=== PATIENT | male | born 1950 | race Caucasian/White ===

== ENCOUNTER 2016-04-02 14:20 | Outpatient (CLI) | payer OTHER ==
[2016-04-02 14:29] VITALS: BP 154/64
[2016-04-02] MEDS ORDERED: PEGFILGRASTIM INJ 6 MG/0.6 ML DISP.SYRIN SUBCUT ONE (14:45)
== END 2016-05-03 12:47 | disposition home or self-care (01) ==
LOC: ASU 14:20
PROVIDERS: ATTEND Specialist
PROC: 3E013GC Introduction of Other Therapeutic Substance into Subcutaneous Tissue, Percutaneous Approach (ICD-10-PCS; principal; 2016-04-02)
DX: C34.12 Malignant neoplasm of upper lobe, left bronchus or lung (principal); D70.2 Other drug-induced agranulocytosis
CPT/HCPCS: 99211; 96372; J2505

== ENCOUNTER → 2016-04-24 | Outpatient (CLI) | payer OTHER | LOC: RAD 16:26 | PROVIDERS: ATTEND Specialist | DX: C34.12 Malignant neoplasm of upper lobe, left bronchus or lung (principal) | CPT/HCPCS: 78815; A9552 ==

== ENCOUNTER → 2016-05-30 | Outpatient (CLI) | payer OTHER | LOC: RAD 10:22 | PROVIDERS: ATTEND Specialist | DX: C34.12 Malignant neoplasm of upper lobe, left bronchus or lung (principal) | CPT/HCPCS: 70553; A9577 ==

== ENCOUNTER → 2016-07-27 | Outpatient (CLI) | payer OTHER | LOC: RAD 15:29 | PROVIDERS: ATTEND Family Medicine | DX: S29.9XXA Unspecified injury of thorax, initial encounter (principal); X58.XXXA Exposure to other specified factors, initial encounter ==

== ENCOUNTER → 2016-08-14 | Outpatient (CLI) | payer OTHER | LOC: RAD 18:41 | PROVIDERS: ATTEND Specialist | DX: C34.12 Malignant neoplasm of upper lobe, left bronchus or lung (principal) | CPT/HCPCS: 78815; A9552 ==

== ENCOUNTER → 2016-09-05 | Outpatient (CLI) | payer OTHER ==
--- NOTE | 2016-09-05 16:49 | RADIOLOGY REPORT (SQ) ---
EXAM DESCRIPTION: CHEST PA/LAT COMPLETED DATE/TIME: 09/05/2016 4:38 pm REASON FOR STUDY: COUGH COMPARISON: 10/30/2014 EXAM PARAMETERS: NUMBER OF VIEWS: two views TECHNIQUE: Digital Frontal and Lateral radiographic views of the chest acquired. RADIATION DOSE: NA LIMITATIONS: none FINDINGS: LUNGS AND PLEURA: There is slight haziness in the right lower lung field. On the lateral view a limited infiltrate in the middle lobe cannot be ruled out. Additionally, there is some ill-de fined opacity in the left base Insert the left heart border is indistinct. MEDIASTINUM AND HILAR STRUCTURES: No masses or contour abnormalities. HEART AND VASCULAR STRUCTURES: Heart normal size. No evidence for failure. BONES: No acute findings. HARDWARE: None in the chest. OTHER: No other significant finding. IMPRESSION: A limited right middle lobe or left lower lobe pneumonia cannot be ruled out. TECHNICAL DOCUMENTATION: JOB ID: [id number] [employer]- All Rights Reserved
== END ==
LOC: RAD 16:26
PROVIDERS: ATTEND Specialist
DX: R05 Cough (principal); R09.89 Other specified symptoms and signs involving the circulatory and respiratory systems; R06.02 Shortness of breath; C34.12 Malignant neoplasm of upper lobe, left bronchus or lung
CPT/HCPCS: 71020

== ENCOUNTER → 2016-09-14 | Outpatient (CLI) | payer OTHER ==
[2016-09-14 17:20] LABS: HEMATOCRIT 31.7 % (37.9-51.0); HEMOGLOBIN 10.4 g/dL (13.5-17.0); HGB HCT DIFFERENCE -0.5; MEAN CORPUSCULAR HEMOGLOBIN 32.6 pg (27.0-33.4); MEAN CORPUSCULAR HGB CONC 32.8 g/dL (32.0-36.0); MEAN CORPUSCULAR VOLUME 99 fl (80-97); RED BLOOD COUNT 3.18 10^6/uL (4.35-5.55); RED CELL DISTRIBUTION WIDTH 18.6 % (11.5-14.0); WHITE BLOOD COUNT 8.2 10^3/uL (4.0-10.5)
[2016-09-14 17:49] LABS: ALANINE AMINOTRANSFERASE 51 U/L (21-72); ALBUMIN 3.5 g/dL (3.5-5.0); ALKALINE PHOSPHATASE 73 U/L (38-126); ASPARTATE AMINO TRANSFERASE 20 U/L (17-59); BILIRUBIN,DIRECT 0.3 mg/dL (0.0-0.4); BILIRUBIN,TOTAL 0.4 mg/dL (0.2-1.3); MAGNESIUM 1.5 mg/dL (1.6-2.3); TOTAL PROTEIN 6.2 g/dL (6.3-8.2)
[2016-09-14 17:50] LABS: ANION GAP 14 (5-19); BLOOD UREA NITROGEN 32 mg/dL (7-20); CALCIUM 8.4 mg/dL (8.4-10.2); CARBON DIOXIDE 24 mmol/L (22-30); CHLORIDE 106 mmol/L (98-107); CREATININE RESULT 1.22 mg/dL (0.52-1.25); GLUCOSE 152 mg/dL (75-110); POTASSIUM 3.9 mmol/L (3.6-5.0); SODIUM 143.9 mmol/L (137-145)
== END ==
LOC: OD 15:59
PROVIDERS: ATTEND Internal Medicine Cardiovascular Disease
DX: R06.02 Shortness of breath (principal); R00.2 Palpitations; E78.00 Pure hypercholesterolemia, unspecified
CPT/HCPCS: 36415; 80048; 80076; 83735; 83880; 85027; 85045

== ENCOUNTER 2017-01-19 13:34 | Outpatient (CLI) | payer MEDICARE, OTHER ==
[2017-01-19] MEDS ORDERED: NORMAL SALINE 1000 ML 1,000 ML IV PRN (13:54)
[2017-01-19 14:58] VITALS: BP 116/50
== END 2017-01-19 15:37 | disposition home or self-care (01) ==
LOC: II 13:34 → 5TH 13:51 → II 15:37
PROVIDERS: ATTEND Internal Medicine Hematology & Oncology
PROC: 3E0337Z Introduction of Electrolytic and Water Balance Substance into Peripheral Vein, Percutaneous Approach (ICD-10-PCS; principal; 2017-01-19)
DX: E86.0 Dehydration (principal); C34.12 Malignant neoplasm of upper lobe, left bronchus or lung
CPT/HCPCS: 96360

== ENCOUNTER 2017-01-23 11:40 | Inpatient (IN) | payer MEDICARE, OTHER ==
[2017-01-23] MEDS ORDERED: NORMAL SALINE 1000 ML 1,000 ML IV ONE (11:56)
--- NOTE | 2017-01-23 11:59 | ER Document Report ---
ED Medical Screen (RME) - General Chief Complaint: Shortness Of Breath Stated Complaint: SHORTNESS OF BREATH Time Seen by Provider: 01/23/17 11:56 Notes: Patient reports a history of lung cancer with radiation and chemotherapy. States he just recently finished chemotherapy. States he woke up this morning with left-sided chest pain and trouble breathing. He states about 2 weeks ago he had some cough and congestion and was treated with inhalers and steroids but no antibiotics. He states this has progressively been getting worse. States he also feels very weak. TRAVEL OUTSIDE OF THE [place] IN LAST 30 DAYS: No - Related Data Allergies/Adverse Reactions: No Known Drug Allergies Allergy (Unknown, Verified 03/13/14 10:18) Past Medical History Renal/ Medical History: Denies: Hx Peritoneal Dialysis - Immunizations Hx Diphtheria, Pertussis, Tetanus Vaccination: No Physical Exam - Vital signs Vitals: Temp Pulse Resp BP Pulse Ox 97.4 F 95 22 H 107/73 94 01/23/17 11:46 01/23/17 11:46 01/23/17 11:46 01/23/17 11:46 01/23/17 11:46 Course - Vital Signs Vital signs: Temp Pulse Resp BP Pulse Ox 97.4 F 95 22 H 107/73 94 01/23/17 11:46 01/23/17 11:46 01/23/17 11:46 01/23/17 11:46 01/23/17 11:46
[2017-01-23 12:47] LABS: HEMOGLOBIN 13.2 g/dL (13.5-17.0); HGB HCT DIFFERENCE 1.6; MEAN CORPUSCULAR HEMOGLOBIN 32.8 pg (27.0-33.4); MEAN CORPUSCULAR HGB CONC 34.7 g/dL (32.0-36.0); MEAN CORPUSCULAR VOLUME 95 fl (80-97); RED BLOOD COUNT 4.02 10^6/uL (4.35-5.55); RED CELL DISTRIBUTION WIDTH 15.1 % (11.5-14.0); WHITE BLOOD COUNT 14.8 10^3/uL (4.0-10.5)
[2017-01-23 12:48] LABS: VENOUS BLOOD BASE EXCESS -5.8 mmol/L; VENOUS BLOOD HCO3 20.4 mmol/L (20-32); VENOUS BLOOD PCO2 42.8 mmHg (35-63); VENOUS BLOOD PH 7.3 (7.30-7.42)
[2017-01-23 12:54] LABS: PROTHROMBIN TIME 13.9 SEC (11.4-15.4)
--- NOTE | 2017-01-23 12:54 | ER Document Report ---
ED Respiratory Problem <CHUCK LEON - Last Filed: 01/23/17 15:02> - General Mode of Arrival: Ambulatory Information source: Patient TRAVEL OUTSIDE OF THE [place] IN LAST 30 DAYS: No <YAHAIRA MOONEY - Last Filed: 01/31/17 22:20> - General Chief Complaint: Shortness Of Breath Stated Complaint: SHORTNESS OF BREATH Time Seen by Provider: 01/23/17 11:56 Notes: Patient is a 66-year-old male who presents to the emergency department today with complaints of increasing shortness of breath. Patient has been short of breath for approximately the past week according to at bedside. Patient has a history significant for lung cancer status post left upper lobectomy. Patient's last opdivo chemotherapy treatment was 3 weeks ago tomorrow and that was his eighth and final treatment. Patient was treated with steroids and inhalers a few weeks ago but no antibiotics. Patient denies fevers. (YAHAIRA MOONEY) - Related Data Allergies/Adverse Reactions: No Known Drug Allergies Allergy (Unknown, Verified 01/23/17 12:54) Home Medications: Current Home Medications Albuterol Sulfate [Albuterol Sulfate 2.5mg/3 mL] 1 vial IH Q8HP PRN 01/23/17 [ History] Albuterol Sulfate [Proair HFA] 2 puff IH Q4 PRN 01/23/17 [History] Aspirin [Aspirin EC] 81 mg PO DAILY 01/23/17 [History] Atorvastatin Calcium [Lipitor 20 mg Tablet] 20 mg PO DAILY 01/23/17 [History] Cholecalciferol (Vitamin D3) [Vitamin D3 2000 unit Tablet] 2,000 unit PO DAILY 01/23/17 [History] Clopidogrel Bisulfate [Plavix 75 mg Tablet] 75 mg PO DAILY 01/23/17 [History] Ergocalciferol (Vitamin D2) [Vitamin D2] 50,000 unit PO PALENCIA@1000 01/23/17 [ History] Finasteride [Proscar 5 mg Tablet] 5 mg PO QHS 01/23/17 [History] Gabapentin [Neurontin 300 mg Capsule] 600 mg PO Q12 01/23/17 [History] Ipratropium/Albuterol Sulfate [Combivent Inhaler] 1 puff IH Q8 01/23/17 [History ] Loratadine [Claritin 10 mg Tablet] 10 mg PO DAILY 10/23/17 [History] Metoprolol Succinate [Toprol Xl 25 mg Tab.sr] 25 mg PO DAILY 01/23/17 [History] Nitroglycerin [Nitrostat 0.4 mg (1/150 Gr) Tabs 25/Bottle] 1 tab SL Q5MP PRN [History] Omeprazole 20 mg PO BID 01/23/17 [History] Tamsulosin HCl [Flomax] 0.4 mg PO DAILY 01/23/17 [History] Past Medical History - Social History Smoking Status: Former Smoker Frequency of alcohol use: None Drug Abuse: None Patient has suicidal ideation: No Patient has homicidal ideation: No - Past Medical History Cardiac Medical History: Reports: Hx Coronary Artery Disease, Hx Hypercholesterolemia, Hx Hypertension Renal/ Medical History: Reports: Hx Benign Prostatic Hyperplasia. 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 GI Medical History: Reports: Hx Gastroesophageal Reflux Disease Past Surgical History: Reports: Hx Cardiac Catheterization - with 2 stents placed 7-8 years ago, Other - left upper lobectomy - Immunizations Hx Diphtheria, Pertussis, Tetanus Vaccination: No <YAHAIRA MOONEY - Last Filed: 01/31/17 22:20> Review of Systems - Review of Systems Constitutional: denies: Fever EENT: No symptoms reported Cardiovascular: No symptoms reported Respiratory: See HPI, Short of breath Gastrointestinal: No symptoms reported Genitourinary: No symptoms reported Male Genitourinary: No symptoms reported Musculoskeletal: No symptoms reported Skin: No symptoms reported Hematologic/Lymphatic: No symptoms reported Neurological/Psychological: No symptoms reported -: Yes All other systems reviewed and negative <YAHAIRA MOONEY - Last Filed: 01/31/17 22:20> Physical Exam <CHUCK LEON - Last Filed: 01/23/17 15:02> <YAHAIRA MOONEY - Last Filed: 01/31/17 22:20> - Vital signs Vitals: Temp Pulse Resp BP Pulse Ox 97.4 F 95 22 H 107/73 94 01/23/17 11:46 01/23/17 11:46 01/23/17 11:46 01/23/17 11:46 01/23/17 11:46 - Notes Notes: Physical Exam: General: Alert, appears chronically ill. HEENT: Normocephalic. Atraumatic. PERRL. Extraocular movements intact. Oropharynx clear. Neck: Supple. Non-tender. Respiratory: Slightly tachypneic, 98% on room air. Coarse breath sounds bilaterally. Decreased breath sounds on the left particularly in the base. Cardiovascular: Tachycardic in the low 100s with regular rhythm. Abdominal: Normal Inspection. Non-tender. No distension. Normal Bowel Sounds. Back: Non-tender. No deformity or step off. Extremities: Moves all four extremities. Upper extremities: Normal inspection. Normal ROM. Lower extremities: Normal inspection. No edema. Normal ROM. Neurological: Normal cognition. AAOx4. Normal speech. Psychological: Normal affect. Normal Mood. Skin: Warm. Dry. Normal color. (YAHAIRA MOONEY) Course - Laboratory Result Diagrams: 01/23/17 12:20 01/23/17 12:20 - Diagnostic Test Radiology reviewed: Image reviewed, Reports reviewed - Chest x-rays show probable large postobstructive pneumonia in the left lower lung - EKG Interpretation by Sd EKG shows normal: Sinus rhythm, [place], Intervals, ST-T Waves. abnormal: QRS Complexes - Consider right ventricular hypertrophy Rate: Tachycardia - 107 When compared to previous EKG there are: No significant change - Consults Dr. Hunt Time consulted: 15:05 Consulted provider: will see as inpatient <CHUCK LEON - Last Filed: 01/23/17 15:02> - Laboratory Result Diagrams: 01/27/17 07:23 01/27/17 07:23 <YAHAIRA MOONEY - Last Filed: 01/31/17 22:20> - Vital Signs Vital signs: Temp Pulse Resp BP Pulse Ox 97.5 F 100 18 94/62 L 97 01/27/17 11:52 01/27/17 11:52 01/27/17 11:52 01/27/17 11:52 01/27/17 11:52 - Laboratory Laboratory results interpreted by me: 01/23/17 01/23/17 01/23/17 12:20 12:20 12:20 WBC 14.8 H RBC 4.02 L Hgb 13.2 L RDW 15.1 H Plt Count 135 L Seg Neuts % (Manual) 90 H Band Neutrophils % 9 H Lymphocytes % (Manual) 1 L Monocytes % (Manual) 0 L Abs Neuts (Manual) 14.7 H Abs Lymphs (Manual) 0.1 L Abs Monocytes (Manual) 0.0 L Carbonic Acid ABG pCO2 ABG pO2 ABG HCO3 ABG Total CO2 Sodium 132.9 L Potassium 5.3 H Chloride 96 L Carbon Dioxide 19 L BUN 42 H Creatinine 1.39 H Est GFR (Non-Af Amer) 51 L Glucose 326 H Lactic Acid 4.8 H Direct Bilirubin 0.5 H AST 15 L Creatine Kinase Total Protein 6.1 L Urine Protein Urine Glucose (UA) Urine Blood Ur Leukocyte Esterase 01/23/17 01/23/17 01/23/17 12:20 13:20 14:33 WBC RBC Hgb RDW Plt Count Seg Neuts % (Manual) Band Neutrophils % Lymphocytes % (Manual) Monocytes % (Manual) Abs Neuts (Manual) Abs Lymphs (Manual) Abs Monocytes (Manual) Carbonic Acid 0.92 L ABG pCO2 30.6 L ABG pO2 75.6 L ABG HCO3 19.1 L ABG Total CO2 20.1 L Sodium Potassium Chloride Carbon Dioxide BUN Creatinine Est GFR (Non-Af Amer) Glucose Lactic Acid Direct Bilirubin AST Creatine Kinase < 20 L Total Protein Urine Protein 30 H Urine Glucose (UA) >=500 H Urine Blood SMALL H Ur Leukocyte Esterase TRACE H Critical Care Note - Critical Care Note Total time excluding time spent on procedures (mins): 35 <CHUCK LEON - Last Filed: 01/23/17 15:02> Discharge - Discharge Admitting Provider: [facility] Unit Admitted: IMCU <CHUCK LEON - Last Filed: 01/23/17 15:02> <YAHAIRA MOONEY - Last Filed: 01/31/17 22:20> - Discharge Clinical Impression: Postobstructive pneumonia, 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 (CHUCK LEON) Scribe Documentation - Scribe Written by Scribe:: Zuri Fagan, 01/23/2017 1311 acting as scribe for :: Bryan <YAHAIRA MOONEY - Last Filed: 01/31/17 22:20>
--- NOTE | 2017-01-23 13:02 | RADIOLOGY REPORT (SQ) ---
EXAM DESCRIPTION: CHEST SINGLE VIEW COMPLETED DATE/TIME: 01/23/2017 12:48 pm REASON FOR STUDY: cp/lung ca COMPARISON: 09/05/2016 EXAM PARAMETERS: NUMBER OF VIEWS: One view. TECHNIQUE: Single frontal radiographic view of the chest acquired. RADIATION DOSE: NA LIMITATIONS: None. FINDINGS: LUNGS AND PLEURA: There is marked opacity in the left base. There is reduced volume in th e left lung with shift of mediastinal structures to the left. MEDIASTINUM AND HILAR STRUCTURES: No masses. Contour normal. HEART AND VASCULAR STRUCTURES: Heart size is indeterminate. BONES: No acute findings. HARDWARE: None in the chest. OTHER: No other significant finding. IMPRESSION: There is marked opacification in the left lung. Left lower lobe atelectasis is suggeste d by a loss of volume. A pleural effusion cannot be excluded. Consolidation cannot be excluded. TECHNICAL DOCUMENTATION: JOB ID: [id number]
[2017-01-23 13:08] LABS: BAND NEUTROPHILS % (MANUAL) 9 % (3-5); BASOPHILS % (MANUAL) 0 % (0-2); EOSINOPHILS % (MANUAL) 0 % (0-6); LYMPHOCYTES % (MANUAL) 1 % (13-45); TOTAL CELLS COUNTED 100
[2017-01-23 13:10] LABS: ALANINE AMINOTRANSFERASE 52 U/L (21-72); ALBUMIN 3.6 g/dL (3.5-5.0); ALKALINE PHOSPHATASE 101 U/L (38-126); ANION GAP 18 (5-19); ASPARTATE AMINO TRANSFERASE 15 U/L (17-59); BILIRUBIN,DIRECT 0.5 mg/dL (0.0-0.4); BILIRUBIN,TOTAL 0.8 mg/dL (0.2-1.3); BLOOD UREA NITROGEN 42 mg/dL (7-20); CALCIUM 9.1 mg/dL (8.4-10.2); CARBON DIOXIDE 19 mmol/L (22-30); CHLORIDE 96 mmol/L (98-107); CREATININE RESULT 1.39 mg/dL (0.52-1.25); GLUCOSE 326 mg/dL (75-110); POTASSIUM 5.3 mmol/L (3.6-5.0); SODIUM 132.9 mmol/L (137-145); TOTAL PROTEIN 6.1 g/dL (6.3-8.2)
[2017-01-23 13:12] LABS: ANISOCYTOSIS SLIGHT; OVALOCYTES SLIGHT; PLATELET CLUMPS PRESENT; POIKILOCYTOSIS SLIGHT; POLYCHROMASIA SLIGHT; TEAR DROP CELLS SLIGHT; TOXIC GRANULATION 1+; TOXIC VACUOLATION PRESENT
[2017-01-23 13:34] LABS: ARTERIAL BLOOD BASE EXCESS -4.4 mmol/L; ARTERIAL BLOOD O2 SATURATION 95.5 % (94-98)
[2017-01-23 13:37] LABS: ADD ON TESTING BLD IN LAB ACKNOWLEDGE
[2017-01-23 13:52] LABS: CREATINE KINASE < 20 U/L (55-170)
--- NOTE | 2017-01-23 14:29 | RADIOLOGY REPORT (SQ) ---
EXAM DESCRIPTION: CHEST SPECIAL VIEW; CHEST SINGLE VIEW COMPLETED DATE/TIME: 01/23/2017 2:14 pm REASON FOR STUDY: LT LAT DECUB, AIR/FLUID LEVELS; RT LAT DECUB. AIR/FLUID LEVELS; UPRIGHT LAT, AIR/F LUID LEVELS COMPARISON: PA and lateral chest 09/05/2016 AP chest 01/23/2017, 1239 hours NUMBER OF VIEWS: Three views TECHNIQUE: Right decubitus view, left decubitus view, lateral view of the chest LIMITATIONS: None. FINDINGS: There is left lower lobe collapse and consolidation above the hemidiaphragm worrisome for pneumonia. On the chest decubitus views, a trace left pleural effusion is present. Right lung well inflated with minimal posterior costophrenic sulcus atelectasis. The no right pleura l effusion. No right or left pneumothorax. Patient is post left upper lobectomy with surgical clips at the left hilum. Fullness at the left hil um worrisome for adenopathy. Cardiac silhouette size normal. Bones are osteoporotic without acute fracture. IMPRESSION: Trace left pleural effusion Left hilar enlargement with left lower lobe pneumonia, likely postobstructive. Consider chest CT for followup. TECHNICAL DOCUMENTATION: JOB ID: [id number] [employer]- All Rights Reserved
[2017-01-23 14:45] LABS: APPEARANCE,URINE CLEAR; BILIRUBIN,URINE NEGATIVE (NEGATIVE); GLUCOSE, URINE >=500 mg/dL (NEGATIVE); KETONES,URINE NEGATIVE (NEGATIVE); LEUKOCYTE ESTERASE,URINE TRACE (NEGATIVE); NITRITE,URINE NEGATIVE (NEGATIVE); PROTEIN,URINE 30 mg/dL (NEGATIVE); URINE SPECIFIC GRAVITY 1.017; UROBILINOGEN,URINE NEGATIVE mg/dL (<2.0)
[2017-01-23] MEDS ORDERED: CEFEPIME 1 GM/D5W RTU 1 GM/50 ML RTUPB IV ONE (15:04)
[2017-01-23] MEDS ORDERED: LEVOFLOXACIN 750 MG/D5W RTU 750 MG/150 ML RTUPB IV ONE (15:04)
[2017-01-23] MEDS ORDERED: ACETAMINOPHEN 325 MG TABLET PO PRN (15:41)
[2017-01-23] MEDS ORDERED: NORMAL SALINE 1000 ML 1,000 ML IV PRN ×2 (15:41→16:54)
[2017-01-23] MEDS ORDERED: ONDANSETRON HCL INJ/PF 4 MG/2 ML SDV IV PRN (15:41)
[2017-01-23] MEDS ORDERED: NITROGLYCERIN 0.4 MG/TAB 25 TAB/BOTTLE SL PRN (15:48)
[2017-01-23] MEDS ORDERED: DEXTROSE 50%-WATER 25 GM/50 ML DISP.SYRIN IV PRN ×4 (15:48→20:56)
[2017-01-23] MEDS ORDERED: DEXTROSE 40% GEL 15 GM TUBE PO PRN ×4 (15:48→20:56)
[2017-01-23] MEDS ORDERED: GLUCAGON,HUMAN RECOMB 1 MG INJ IM PRN ×2 (15:48→20:56)
--- NOTE | 2017-01-23 16:02 | PDOC H&P ---
History of Present Illness Admission Date/PCP: 01/23/17 15:29 TESSY CLEMENT MD Patient complains of: Shortness of the breath History of Present Illness: LUCIO ROJO is a 66 year old male This is a 66-year-old male with a history of the squamous cell carcinoma with the brain metastatic lesionWith the status post left lower lobe surgery status post radiation and chemotherapyAnd also CyberKnife therapy and radiation of the brain toWith the currently getting the immunotherapy twice a month to take [address] cycle at [facility] [address] EldridgeWith a history of the COPD and a history of the smoking in the past currently getting the steroid treatments. Drug reactions and also from the COPDCame to the emergency department with a complaint was shortness of the breath and wheezing and not feeling well In the emergency department patient's chest x-rays so some left-sided pneumonia with some pleural effusions and patient's white count was elevatedVery extensive discussed with the patient and his to agree and the admitting the hospitals and further workup and agreed to see the local pulmonary and also parts cataloger and oncologist Dr. Aldana which patient used to see's office Dr. Carlson before Dr. Carlson left Patient's recently lost 20 pounds since last 2 monthsAnd patient was giving the Megace by Dr. Eldridge at [facility] He says recently received the steroid treatments for 3 weeks due to the intermittent reactions and recently give her Medrol Dosepak Patient also scheduled for the PET scan and MRI of the brain tomorrow at [facility] Patient's blood sugar is also not well controlled due to the recent steroidAlso noncompliance with the diet Patient also see a Dr. keen for coronary artery disease and recently have all the test was done for all stable Discussed with the patient and the in emergency departments and will admit the patient's possible postobstructive pneumonia and for further evaluations Past Medical History Cardiac Medical History: Reports: Coronary Artery Disease, Hyperlipidema, Hypertension Pulmonary Medical History: Reports: Chronic Obstructive Pulmonary Disease (COPD) Endocrine Medical History: Reports: Diabetes Mellitus Type 2 Malignancy Medical History: Reports: Lung Cancer - With metastasis to brain GI Medical History: Reports: Gastroesophageal Reflux Disease Musculoskeltal Medical History: Reports: Arthritis Psychiatric Medical History: Reports: Depression Hematology: Reports: Anemia Past Surgical History Past Surgical History: Reports: Cardiac Catheterization - with 2 stents placed 7 -8 years ago, Other - left upper lobectomy Social History Smoking Status: Former Smoker Frequency of Alcohol Use: Rare Hx Recreational Drug Use: No Drugs: None Hx Prescription Drug Abuse: No Family History Family History: Reviewed & Not Pertinent Parental Family History Reviewed: Yes Children Family History Reviewed: Yes Sibling(s) Family History Reviewed.: Yes Medication/Allergy Home Medications: Albuterol Sulfate [Albuterol Sulfate 2.5mg/3 mL] 1 vial IH Q8HP PRN 01/23/17 Albuterol Sulfate [Proair HFA] 2 puff IH Q4 PRN 01/23/17 Aspirin [Aspirin EC] 81 mg PO DAILY 01/23/17 Atorvastatin Calcium [Lipitor 20 mg Tablet] 20 mg PO DAILY 01/23/17 Cholecalciferol (Vitamin D3) [Vitamin D3 2000 unit Tablet] 2,000 unit PO DAILY 01/23/17 Clopidogrel Bisulfate [Plavix 75 mg Tablet] 75 mg PO DAILY 01/23/17 Dexamethasone [Decadron 4 Mg Tablet] 4 mg PO DAILY 01/23/17 Ergocalciferol (Vitamin D2) [Vitamin D2] 50,000 unit PO PALENCIA@1000 01/23/17 Finasteride [Proscar 5 mg Tablet] 5 mg PO QHS 01/23/17 Gabapentin [Neurontin 300 mg Capsule] 600 mg PO Q12 01/23/17 Ipratropium/Albuterol Sulfate [Combivent Inhaler] 1 puff IH Q8 01/23/17 Loratadine [Claritin 10 mg Tablet] 10 mg PO DAILY 01/23/17 Metoprolol Succinate [Toprol Xl 25 mg Tab.sr] 25 mg PO DAILY 01/23/17 Nitroglycerin [Nitrostat 0.4 mg (1/150 Gr) Tabs 25/Bottle] 1 tab SL Q5MP PRN Omeprazole 20 mg PO BID 01/23/17 Tamsulosin HCl [Flomax] 0.4 mg PO DAILY 01/23/17 Allergies/Adverse Reactions: No Known Drug Allergies Allergy (Unknown, Verified 01/23/17 12:54) Review of Systems Constitutional: PRESENT: fatigue, weakness. ABSENT: chills, fever(s), headache( s), weight gain, weight loss Eyes: ABSENT: visual disturbances Ears: ABSENT: hearing changes Cardiovascular: PRESENT: dyspnea on exertion. ABSENT: chest pain, edema, orthropnea, palpitations Respiratory: PRESENT: cough, dyspnea. ABSENT: hemoptysis Gastrointestinal: ABSENT: abdominal pain, constipation, diarrhea, hematemesis, hematochezia, nausea, vomiting Genitourinary: ABSENT: dysuria, hematuria Musculoskeletal: ABSENT: joint swelling Integumentary: ABSENT: rash, wounds Neurological: ABSENT: abnormal gait, abnormal speech, confusion, dizziness, focal weakness, syncope Psychiatric: ABSENT: anxiety, depression, homidical ideation, suicidal ideation Endocrine: ABSENT: cold intolerance, heat intolerance, menstrual abnormalities, polydipsia, polyuria Hematologic/Lymphatic: ABSENT: easy bleeding, easy bruising, lymphadenopathy Physical Exam Vital Signs: Temp Pulse Resp BP Pulse Ox 97.4 F 95 16 118/82 98 01/23/17 11:46 01/23/17 11:46 01/23/17 15:01 01/23/17 15:00 01/23/17 15:01 General appearance: PRESENT: no acute distress, well-developed, well-nourished Head exam: PRESENT: atraumatic, normocephalic Eye exam: PRESENT: conjunctiva pink, EOMI, PERRLA. ABSENT: scleral icterus Ear exam: PRESENT: normal external ear exam Mouth exam: PRESENT: moist, tongue midline Neck exam: PRESENT: full ROM. ABSENT: carotid bruit, JVD, lymphadenopathy, thyromegaly Respiratory exam: PRESENT: decreased breath sounds, wheezes Cardiovascular exam: PRESENT: RRR. ABSENT: diastolic murmur, rubs, systolic murmur Pulses: PRESENT: normal dorsalis pedis pul, +2 pedal pulses bilateral Vascular exam: PRESENT: normal capillary refill GI/Abdominal exam: PRESENT: normal bowel sounds, soft. ABSENT: distended, guarding, mass, organolmegaly, rebound, tenderness Rectal exam: PRESENT: deferred Extremities exam: ABSENT: pedal edema Neurological exam: PRESENT: alert, awake, oriented to person, oriented to place , oriented to time, oriented to situation, CN II-XII grossly intact. ABSENT: motor sensory deficit Psychiatric exam: PRESENT: appropriate affect, normal mood. ABSENT: homicidal ideation, suicidal ideation Skin exam: PRESENT: dry, intact, warm. ABSENT: cyanosis, rash Results Impressions: Chest X-Ray 01/23/17 13:39 IMPRESSION: Trace left pleural effusion Left hilar enlargement with left lower lobe pneumonia, likely postobstructive. Consider chest CT for followup. 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 Eldridge but used to see a Dr. Carlson in the past and patient agreed to see the local oncologist again we consult the local oncologist Dr. Aldana for further evaluations (3) Type 2 diabetes mellitus Qualifiers: Diabetes mellitus complication status: with unspecified complications Is this a current diagnosis for this admission?: Yes Plan: Put the patient on a sliding scale and adjust the insulin (4) Hypertension Qualifiers: Hypertension type: essential hypertension Qualified Code(s): I10 - Essential (primary) hypertension Is this a current diagnosis for this admission?: Yes Plan: Continues current medication (5) Chronic obstructive pulmonary disease Qualifiers: COPD type: unspecified COPD Qualified Code(s): J44.9 - Chronic obstructive pulmonary disease, unspecified Is this a current diagnosis for this admission?: Yes Plan: Continues a nebulizer treatment (6) Hyperlipidemia Qualifiers: Hyperlipidemia type: unspecified Qualified Code(s): E78.5 - Hyperlipidemia , unspecified Is this a current diagnosis for this admission?: Yes (7) Weight loss Is this a current diagnosis for this admission?: Yes Plan: Most likely due to the related to the cancer (8) Leukocytosis Qualifiers: Leukocytosis type: bandemia Qualified Code(s): D72.825 - Bandemia Is this a current diagnosis for this admission?: Yes Plan: Possible from pneumonia versus the steroid (9) Coronary artery disease Qualifiers: Coronary Disease-Associated Artery/Lesion type: unspecified vessel or lesion type Is this a current diagnosis for this admission?: Yes Plan: Continues current medications will rule out any acute coronary syndromes - Time Time Spent: 50 to 70 Minutes Medications reviewed and adjusted accordingly: Yes Anticipated discharge: Home Within: Other - Inpatient Certification Medical Necessity: Need Close Monitoring Due to Risk of Patient Decompensation, Need For IV Fluids, Need for IV Antibiotics Post Hospital Care: D/C Head Butler Documentation - Plan Summary Plan Summary: Admit the patient in IMCU as above see other MD orders and very extensive discussed with the patient and the regarding the patient's current conditions patient is currently a full code
[2017-01-23 17:00] LABS: CREATINE KINASE MB 2.06 ng/mL (<4.55); TROPONIN I 0.028 ng/mL
[2017-01-23] MEDS ORDERED: IPRATROPIUM/ALBUTEROL 0.5-2.5 MG/3 ML AMPUL NEB ONE (17:00)
[2017-01-23] MEDS: LANSOPRAZOLE 15 MG TAB.RAP.DR PO SCH (17:30)
--- NOTE | 2017-01-23 18:15 | RADIOLOGY REPORT (SQ) ---
EXAM DESCRIPTION: MRI HEAD COMBO COMPLETED DATE/TIME: 01/23/2017 5:40 pm REASON FOR STUDY: lung cancer with brain met COMPARISON: May 2016 TECHNIQUE: Multiplanar imaging includes noncontrasted T1, T2, FLAIR, and Diffusion with ADC map seq uences. Contrast enhanced T1 images. Images stored on PACS. CONTRAST TYPE AND DOSE: 15 mL MultiHance RENAL FUNCTION: GFR 51 LIMITATIONS: None. FINDINGS: ANATOMY: No anomalies. Normal vascular flow voids. Pituitary fossa normal. CSF SPACES: Normal size and contour. No hemorrhage. CEREBRUM: A few high-signal intensity lesions scattered throughout the white matter on FLAIR imaging with distribution suggesting chronic microvascular ischemic change. Sulci and gyri normal in size and contour. No evidence of hemorrhage, mass or extraaxial fluid collection. There are multiple varying size rim enhancing mass lesions in both cerebral hemispheres consistent with metastatic disease. Th e largest is identified in the left frontoparietal region over the convexity measuring 2.8 x 2.0 cm i n diameters. The next largest is in the region of the basal ganglia on the left measuring 11 mm in g reatest diameter. No significant mass effect is seen. POSTERIOR FOSSA: There are multiple small rim enhancing masses consistent with metastatic disease in both cerebellar hemispheres with the largest measuring 8.3 mm in the left cerebellar hemisphere. No h emorrhage. No edema. No significant mass effect. Internal auditory canals, cerebello-pontine angles, mastoids normal. DIFFUSION: Negative for acute or subacute infarction. ORBITS: No masses. Globes normal. PARANASAL SINUSES: No fluid levels. Mucosa normal. OTHER: No other significant finding. IMPRESSION: Multiple varying size rim enhancing masses are identified in both the cerebral hemispher es as well as both cerebellar hemispheres consistent with metastatic disease. The largest of these i s identified in the left frontoparietal region over the convexity. MINIMAL MICROVASCULAR ISCHEMIC WIN NGE. Other findings as noted above. EVIDENCE OF ACUTE STROKE: NO. TECHNICAL DOCUMENTATION: JOB ID: [id number]- All Rights Reserved
[2017-01-23] MEDS: OXYCODONE HCL SR 10 MG TABLET PO PRN (18:33)
--- NOTE | 2017-01-23 19:12 | EKG REPORT ---
SEVERITY:- BORDERLINE ECG - SINUS TACHYCARDIA CONSIDER RIGHT VENTRICULAR HYPERTROPHY : Confirmed by: Avril Cody 23-Jan-2017 19:12:02
[2017-01-23] MEDS: IPRATROPIUM/ALBUTEROL 0.5-2.5 MG/3 ML AMPUL NEB SCH (20:11)
[2017-01-23] MEDS ORDERED: INSULIN GLARGINE,HUM.REC.ANLOG 300 UNIT/3 ML INSULN.PEN SUBCUT SCH (22:00)
[2017-01-23] MEDS ORDERED: DEXAMETHASONE 4 MG TABLET PO SCH (22:00)
[2017-01-23] MEDS ORDERED: INFLUENZA ADLT QUAD (36MOS+) 2017-18 VAC 0.5 ML SYR IM PRN (22:17)
[2017-01-23] MEDS: CEFEPIME 1 GM/D5W RTU 1 GM/50 ML RTUPB IV SCH (23:01)
[2017-01-23] MEDS: INSULIN LISPRO 100 UNIT/ML 3 ML VIAL SUBCUT PRN (23:02)
[2017-01-23] MEDS: GABAPENTIN 300 MG CAPSULE PO SCH (23:02)
[2017-01-23] MEDS: FINASTERIDE 5 MG TABLET PO SCH (23:03)
[2017-01-23] MEDS: METHYLPREDNISOLONE INJ 125 MG/2 ML SDV IV SCH (23:03)
[2017-01-23 23:19] LABS: CREATINE KINASE MB 2.13 ng/mL (<4.55); TROPONIN I 0.019 ng/mL
[2017-01-24] MEDS: IPRATROPIUM/ALBUTEROL 0.5-2.5 MG/3 ML AMPUL NEB SCH ×3 (00:31→08:47)
[2017-01-24] MEDS: OXYCODONE HCL SR 10 MG TABLET PO PRN ×5 (02:13→23:45)
[2017-01-24] MEDS ORDERED: DILTIAZEM HCL INJ 25 MG/5 ML VIAL ONE (02:24)
[2017-01-24] MEDS ORDERED: DILTIAZEM HCL/D5W 125 MG/125 ML RTUINJ IV ONE (02:24)
[2017-01-24] MEDS: DILTIAZEM HCL/D5W 125 MG/125 ML RTUINJ IV PRN ×2 (02:50→12:04)
[2017-01-24] MEDS ORDERED: DILTIAZEM HCL INJ 25 MG/5 ML VIAL IV ONE (03:00)
[2017-01-24 06:06] LABS: ANION GAP 13 (5-19); BLOOD UREA NITROGEN 33 mg/dL (7-20); CALCIUM 8.8 mg/dL (8.4-10.2); CARBON DIOXIDE 19 mmol/L (22-30); CHLORIDE 100 mmol/L (98-107); CREATININE RESULT 1.16 mg/dL (0.52-1.25); GLUCOSE 375 mg/dL (75-110); POTASSIUM 5.3 mmol/L (3.6-5.0); SODIUM 132.3 mmol/L (137-145)
[2017-01-24 06:10] LABS: HEMOGLOBIN 11.8 g/dL (13.5-17.0); HGB HCT DIFFERENCE 1.4; MEAN CORPUSCULAR HEMOGLOBIN 32.9 pg (27.0-33.4); MEAN CORPUSCULAR HGB CONC 34.8 g/dL (32.0-36.0); MEAN CORPUSCULAR VOLUME 95 fl (80-97); RED BLOOD COUNT 3.59 10^6/uL (4.35-5.55); RED CELL DISTRIBUTION WIDTH 15.2 % (11.5-14.0)
[2017-01-24] MEDS: LANSOPRAZOLE 15 MG TAB.RAP.DR PO SCH ×2 (06:23→17:36)
[2017-01-24] MEDS: METHYLPREDNISOLONE INJ 125 MG/2 ML SDV IV SCH (06:23)
[2017-01-24 06:25] LABS: CREATINE KINASE MB 1.88 ng/mL (<4.55); TROPONIN I 0.016 ng/mL
[2017-01-24 07:11] LABS: BASOPHILS % (MANUAL) 0 % (0-2); EOSINOPHILS % (MANUAL) 0 % (0-6); LYMPHOCYTES % (MANUAL) 2 % (13-45); TOTAL CELLS COUNTED 100
[2017-01-24 07:12] LABS: RBC MORPHOLOGY COMMENT NORMO-CYTIC/CHROMIC
[2017-01-24] MEDS: INSULIN LISPRO 100 UNIT/ML 3 ML VIAL SUBCUT PRN ×2 (07:52→12:04)
--- NOTE | 2017-01-24 08:04 | EKG REPORT ---
SEVERITY:- ABNORMAL ECG - ATRIAL FIBRILLATION, V-RATE 85-169 CONSIDER RIGHT VENTRICULAR HYPERTROPHY BORDERLINE T ABNORMALITIES, INFERIOR LEADS : Confirmed by: Avril Cody 24-Jan-2017 08:04:18
--- NOTE | 2017-01-24 08:46 | PDOC CONSULTATION ---
Consultation Consult Date: 01/24/17 Attending physician:: TESSY CLEMENT Consult reason:: Postobstructive pneumonia, stage IV lung cancer History of Present Illness Admission Date/PCP: 01/23/17 15:41 TESSY CLEMENT MD Patient complains of: Shortness of breath, chest pain, cough, weakness History of Present Illness: 66-year-old male with known history of stage IV lung cancer, initially had stage III disease diagnosed at the end of the last year, he was treated with concurrent chemoradiation, then in May he was noted with brain metastasis, he only had a single lesion at that time and had gamma knife radiation to that site. He was noted with progression in the lungs in August. At that time he was seen by my partner Dr. Carlson, she left our practice in September, at that time he decided to transition care to Dr. Eldridge in [place]. He was then started on immunotherapy, he has been on immunotherapy now for about 8 cycles or 16 weeks. The last PET/CT we have in our system indicates multiple areas of disease in the mediastinum, specifically in lymph node sites. He tells me about 6 weeks ago he had restaging imaging which indicated improvement in the brain and the lungs apparently, we will get those records from [place] however. Here, he has had brain MRI which indicated multiple brain metastases bilateral cerebral hemispheres as well as cerebellum. It does appear to be overt progression from at least the MRI done in May but probably even the MRI done in [place]. He is plan for CT of the chest abdomen pelvis today. Past Medical History Cardiac Medical History: Reports: Coronary Artery Disease, Hyperlipidema, Hypertension Pulmonary Medical History: Reports: Chronic Obstructive Pulmonary Disease (COPD) Endocrine Medical History: Reports: Diabetes Mellitus Type 2 Malignancy Medical History: Reports: Lung Cancer - With metastasis to brain GI Medical History: Reports: Gastroesophageal Reflux Disease Musculoskeltal Medical History: Reports: Arthritis Psychiatric Medical History: Reports: Depression Hematology: Reports: Anemia Past Surgical History Past Surgical History: Reports: Cardiac Catheterization - with 2 stents placed 7 -8 years ago, Other - left upper lobectomy Social History Smoking Status: Former Smoker Frequency of Alcohol Use: None Hx Recreational Drug Use: No Drugs: None Hx Prescription Drug Abuse: No - Advance Directive Resuscitation Status: Full Code Family History Family History: Reviewed & Not Pertinent Parental Family History Reviewed: Yes Children Family History Reviewed: Yes Sibling(s) Family History Reviewed.: Yes Medication/Allergy Home Medications: Albuterol Sulfate [Albuterol Sulfate 2.5mg/3 mL] 1 vial IH Q8HP PRN 01/23/17 Albuterol Sulfate [Proair HFA] 2 puff IH Q4 PRN 01/23/17 Aspirin [Aspirin EC] 81 mg PO DAILY 01/23/17 Atorvastatin Calcium [Lipitor 20 mg Tablet] 20 mg PO DAILY 01/23/17 Cholecalciferol (Vitamin D3) [Vitamin D3 2000 unit Tablet] 2,000 unit PO DAILY 01/23/17 Clopidogrel Bisulfate [Plavix 75 mg Tablet] 75 mg PO DAILY 01/23/17 Dexamethasone [Decadron 4 Mg Tablet] 4 mg PO DAILY 01/23/17 Ergocalciferol (Vitamin D2) [Vitamin D2] 50,000 unit PO PALENCIA@1000 01/23/17 Finasteride [Proscar 5 mg Tablet] 5 mg PO QHS 01/23/17 Gabapentin [Neurontin 300 mg Capsule] 600 mg PO Q12 01/23/17 Ipratropium/Albuterol Sulfate [Combivent Inhaler] 1 puff IH Q8 01/23/17 Loratadine [Claritin 10 mg Tablet] 10 mg PO DAILY 01/23/17 Metoprolol Succinate [Toprol Xl 25 mg Tab.sr] 25 mg PO DAILY 01/23/17 Nitroglycerin [Nitrostat 0.4 mg (1/150 Gr) Tabs 25/Bottle] 1 tab SL Q5MP PRN Omeprazole 20 mg PO BID 01/23/17 Tamsulosin HCl [Flomax] 0.4 mg PO DAILY 01/23/17 Allergies/Adverse Reactions: No Known Drug Allergies Allergy (Unknown, Verified 01/23/17 12:54) Review of Systems Constitutional: ABSENT: chills, fever(s), headache(s), weight gain, weight loss Eyes: ABSENT: visual disturbances Ears: ABSENT: hearing changes Cardiovascular: ABSENT: chest pain, dyspnea on exertion, edema, orthropnea, palpitations Respiratory: ABSENT: cough, hemoptysis Gastrointestinal: ABSENT: abdominal pain, constipation, diarrhea, hematemesis, hematochezia, nausea, vomiting Genitourinary: ABSENT: dysuria, hematuria Musculoskeletal: ABSENT: joint swelling Integumentary: ABSENT: rash, wounds Neurological: ABSENT: abnormal gait, abnormal speech, confusion, dizziness, focal weakness, syncope Psychiatric: ABSENT: anxiety, depression, homidical ideation, suicidal ideation Endocrine: ABSENT: cold intolerance, heat intolerance, polydipsia, polyuria Hematologic/Lymphatic: ABSENT: easy bleeding, easy bruising Physical Exam Vital Signs: Temp Pulse Resp BP Pulse Ox 98.4 F 83 19 116/67 99 01/24/17 04:00 01/24/17 07:00 01/24/17 04:03 01/24/17 06:00 01/24/17 04:03 Intake & Output 01/23/17 01/24/17 01/25/17 06:59 06:59 06:59 Intake Total 1280 Output Total 790 Balance 490 Weight 88.5 kg General appearance: PRESENT: no acute distress, well-developed, well-nourished Head exam: PRESENT: atraumatic, normocephalic Eye exam: PRESENT: conjunctiva pink, EOMI, PERRLA. ABSENT: scleral icterus Ear exam: PRESENT: normal external ear exam Mouth exam: PRESENT: moist, tongue midline Neck exam: ABSENT: carotid bruit, JVD, lymphadenopathy, thyromegaly Respiratory exam: PRESENT: clear to auscultation concetta. ABSENT: rales, rhonchi, wheezes Cardiovascular exam: PRESENT: RRR. ABSENT: diastolic murmur, rubs, systolic murmur Pulses: PRESENT: normal dorsalis pedis pul Vascular exam: PRESENT: normal capillary refill GI/Abdominal exam: PRESENT: normal bowel sounds, soft. ABSENT: distended, guarding, mass, organolmegaly, rebound, tenderness Rectal exam: PRESENT: deferred Extremities exam: PRESENT: full ROM. ABSENT: calf tenderness, clubbing, pedal edema Neurological exam: PRESENT: alert, awake, oriented to person, oriented to place , oriented to time, oriented to situation, CN II-XII grossly intact. ABSENT: motor sensory deficit Psychiatric exam: PRESENT: appropriate affect, normal mood. ABSENT: homicidal ideation, suicidal ideation Skin exam: PRESENT: dry, intact, warm. ABSENT: cyanosis, rash Results Laboratory Results: 01/24/17 04:55 01/24/17 04:55 01/23/17 01/24/17 01/24/17 16:16 04:55 04:55 WBC 10.0 RBC 3.59 L Hgb 11.8 L Hct 34.0 L MCV 95 MCH 32.9 MCHC 34.8 RDW 15.2 H Plt Count 109 L Seg Neutrophils % Not Reportable Lymphocytes % Not Reportable Monocytes % Not Reportable Eosinophils % Not Reportable Basophils % Not Reportable Absolute Neutrophils Not Reportable Absolute Lymphocytes Not Reportable Absolute Monocytes Not Reportable Absolute Eosinophils Not Reportable Absolute Basophils Not Reportable Sodium 132.3 L Potassium 5.3 H Chloride 100 Carbon Dioxide 19 L Anion Gap 13 BUN 33 H Creatinine 1.16 Est GFR ( Amer) > 60 Est GFR (Non-Af Amer) > 60 Glucose 375 H Lactic Acid 2.5 H Calcium 8.8 01/23/17 01/23/17 01/23/17 16:16 16:16 22:40 Creatine Kinase < 20 L < 20 L CK-MB (CK-2) 2.06 Troponin I 0.028 NT-Pro-B Natriuret Pep 01/23/17 01/24/17 01/24/17 22:40 04:55 04:55 Creatine Kinase < 20 L CK-MB (CK-2) 2.13 1.88 Troponin I 0.019 0.016 NT-Pro-B Natriuret Pep 01/24/17 04:55 Creatine Kinase CK-MB (CK-2) Troponin I NT-Pro-B Natriuret Pep 1200 H Impressions: Head MRI 01/23/17 00:00 IMPRESSION: Multiple varying size rim enhancing masses are identified in both the cerebral hemispheres as well as both cerebellar hemispheres consistent with metastatic disease. The largest of these is identified in the left frontoparietal region over the convexity. MINIMAL MICROVASCULAR ISCHEMIC CHANGE. Other findings as noted above. EVIDENCE OF ACUTE STROKE: NO. Chest X-Ray 01/23/17 13:39 IMPRESSION: Trace left pleural effusion Left hilar enlargement with left lower lobe pneumonia, likely postobstructive. Consider chest CT for followup. 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 We need to stage the lungs in the abdomen as well, he may have overt progression there as well. Ultimately, I believe immunotherapy would not be of benefit for him, he had enough of an immunotherapy trial to see if it would work. At this point going back chemotherapy would be the only option. I also discussed comfort care as well as hospice options, he is not willing to discuss that as of yet. We will talk further with him tomorrow morning once we have the CT imaging completed. - Time Time Spent: Greater than 70 Minutes Critical Time spent with patient: 35 or more minutes
[2017-01-24] MEDS ORDERED: (PENDING PHARMACY ID) (Cholecalciferol (Vitamin D3) [Vitamin D3 2000 Unit Tablet] 2,000 UN PO SCH (10:00)
[2017-01-24] MEDS ORDERED: METOPROLOL SUCCINATE 25 MG TAB.SR.24H PO SCH (10:00)
[2017-01-24] MEDS ORDERED: SODIUM POLYSTYRENE SULFONATE 15 GM/60 ML PO ONE (10:36)
--- NOTE | 2017-01-24 10:44 | PDOC PROGRESS REPORT ---
Subjective Progress Note for:: 01/24/17 Subjective:: Patient is currently doing same. Denied any chest pain denied any shortness of the breathOvernight patient's heart risk was 160 and this new onset of the A. fibPatient was started on a Cardizem drip Patient's otherwise MRI of the brain multiple lesion Patient still feeling very weak Physical Exam Vital Signs: Temp Pulse Resp BP Pulse Ox 98.4 F 78 18 116/67 99 01/24/17 04:00 01/24/17 08:49 01/24/17 08:49 01/24/17 06:00 01/24/17 08:49 Intake & Output 01/23/17 01/24/17 01/25/17 06:59 06:59 06:59 Intake Total 1280 Output Total 790 Balance 490 Weight 88.5 kg General appearance: PRESENT: no acute distress, well-developed, well-nourished Head exam: PRESENT: atraumatic, normocephalic Eye exam: PRESENT: conjunctiva pink, EOMI, PERRLA. ABSENT: scleral icterus Ear exam: PRESENT: normal external ear exam Mouth exam: PRESENT: moist, tongue midline Neck exam: PRESENT: full ROM. ABSENT: carotid bruit, JVD, lymphadenopathy, thyromegaly Respiratory exam: PRESENT: clear to auscultation concetta Cardiovascular exam: PRESENT: irregular rhythm, +S1, +S2. ABSENT: diastolic murmur, rubs, systolic murmur Pulses: PRESENT: normal dorsalis pedis pul, +2 pedal pulses bilateral Vascular exam: PRESENT: normal capillary refill GI/Abdominal exam: PRESENT: normal bowel sounds, soft. ABSENT: distended, guarding, mass, organolmegaly, rebound, tenderness Rectal exam: PRESENT: deferred Extremities exam: ABSENT: pedal edema Neurological exam: PRESENT: alert, awake, oriented to person, oriented to place , oriented to time, oriented to situation, CN II-XII grossly intact. ABSENT: motor sensory deficit Psychiatric exam: PRESENT: appropriate affect, normal mood. ABSENT: homicidal ideation, suicidal ideation Skin exam: PRESENT: dry, intact, warm. ABSENT: cyanosis, rash Results Laboratory Results: 01/24/17 04:55 01/24/17 04:55 01/23/17 01/24/17 01/24/17 16:16 04:55 04:55 WBC 10.0 RBC 3.59 L Hgb 11.8 L Hct 34.0 L MCV 95 MCH 32.9 MCHC 34.8 RDW 15.2 H Plt Count 109 L Seg Neutrophils % Not Reportable Lymphocytes % Not Reportable Monocytes % Not Reportable Eosinophils % Not Reportable Basophils % Not Reportable Absolute Neutrophils Not Reportable Absolute Lymphocytes Not Reportable Absolute Monocytes Not Reportable Absolute Eosinophils Not Reportable Absolute Basophils Not Reportable Sodium 132.3 L Potassium 5.3 H Chloride 100 Carbon Dioxide 19 L Anion Gap 13 BUN 33 H Creatinine 1.16 Est GFR ( Amer) > 60 Est GFR (Non-Af Amer) > 60 Glucose 375 H Lactic Acid 2.5 H Calcium 8.8 01/23/17 01/23/17 01/23/17 16:16 16:16 22:40 Creatine Kinase < 20 L < 20 L CK-MB (CK-2) 2.06 Troponin I 0.028 NT-Pro-B Natriuret Pep 01/23/17 01/24/17 01/24/17 22:40 04:55 04:55 Creatine Kinase < 20 L CK-MB (CK-2) 2.13 1.88 Troponin I 0.019 0.016 NT-Pro-B Natriuret Pep 01/24/17 04:55 Creatine Kinase CK-MB (CK-2) Troponin I NT-Pro-B Natriuret Pep 1200 H Impressions: Head MRI 01/23/17 00:00 IMPRESSION: Multiple varying size rim enhancing masses are identified in both the cerebral hemispheres as well as both cerebellar hemispheres consistent with metastatic disease. The largest of these is identified in the left frontoparietal region over the convexity. MINIMAL MICROVASCULAR ISCHEMIC CHANGE. Other findings as noted above. EVIDENCE OF ACUTE STROKE: NO. Chest X-Ray 01/23/17 13:39 IMPRESSION: Trace left pleural effusion Left hilar enlargement with left lower lobe pneumonia, likely postobstructive. Consider chest CT for followup. 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 Is this a current diagnosis for this admission?: Yes Plan: With the disease is more progress with the MRI so some multiple lesion will get the CT of the chest and abdomen and pelvis per the oncology request (3) Type 2 diabetes mellitus Qualifiers: Diabetes mellitus complication status: with unspecified complications Is this a current diagnosis for this admission?: Yes Plan: Adjust the insulin and reduce the steroid (4) Hypertension Qualifiers: Hypertension type: essential hypertension Qualified Code(s): I10 - Essential (primary) hypertension Is this a current diagnosis for this admission?: Yes Plan: Continues current medication (5) Chronic obstructive pulmonary disease Qualifiers: COPD type: unspecified COPD Qualified Code(s): J44.9 - Chronic obstructive pulmonary disease, unspecified Is this a current diagnosis for this admission?: Yes Plan: Will DC the DuoNeb and started on Xopenex due to the A. fib (6) Hyperlipidemia Qualifiers: Hyperlipidemia type: unspecified Qualified Code(s): E78.5 - Hyperlipidemia , unspecified Is this a current diagnosis for this admission?: Yes (7) Weight loss Is this a current diagnosis for this admission?: Yes Plan: Most likely due to the related to the cancer (8) Leukocytosis Qualifiers: Leukocytosis type: bandemia Qualified Code(s): D72.825 - Bandemia Is this a current diagnosis for this admission?: Yes (9) Coronary artery disease Qualifiers: Coronary Disease-Associated Artery/Lesion type: unspecified vessel or lesion type Is this a current diagnosis for this admission?: Yes (10) Atrial fibrillation Qualifiers: Atrial fibrillation type: unspecified Qualified Code(s): I48.91 - Unspecified atrial fibrillation Is this a current diagnosis for this admission?: Yes Plan: With new onset will check the magnesium continues to Jose barrera consult to Dr. 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
--- NOTE | 2017-01-24 10:51 | RADIOLOGY REPORT (SQ) ---
EXAM DESCRIPTION: CTA CHEST COMPLETED DATE/TIME: 01/24/2017 10:19 am REASON FOR STUDY: lung cancer /sob COMPARISON: 03/03/2015 TECHNIQUE: CT scan of the chest performed using helical scanning technique with dynamic intravenous contrast injection. Images reviewed with lung, soft tissue and bone windows. Reconstructed coronal and sagittal MPR images reviewed. Additional 3 dimensional post-processing performed to develop Maximal Intensity Projection images (VA P). All images stored on PACS. All CT scanners at this facility use dose modulation, iterative reconstruction, and/or weight based d osing when appropriate to reduce radiation dose to as low as reasonably achievable (ALARA). [facility]: Dose Right [facility]: CareDose [facility]: Dose Right [facility]: Teradose 4D [facility]: Conduit CONTRAST TYPE AND DOSE: contrast/concentration: Isovue 370.00 mg/ml; Total Contrast Delivered: 70.0 ml; Total Saline Delivered: 110.0 ml Contrast bolus optimized for the pulmonary arteries. Not diagnostic for the aorta. RENAL FUNCTION: Done without waiting for renal function tests at the request of the ordering physici an. RADIATION DOSE: Up-to-date CT equipment and radiation dose reduction techniques were employed. CTDIv ol: 9.3 - 21.0 mGy. DLP: 1865 mGy-cm. . LIMITATIONS: There is mild pulsation artifact. Evaluation of the left lower lobe pulmonary arteries is limited because of the pathology in the left base. FINDINGS: LUNGS AND PLEURA: Moderate centrilobular emphysematous changes are present. Partial pneum onectomy changes are seen on the left. There is some a moderate left pleural effusion. There is sig nificant opacification in the left lower lobe with air bronchograms within it. There is mild subsegm ental atelectasis in the right lower lobe. AORTA AND GREAT VESSELS: No aneurysm. Contrast bolus not optimized for the aorta. HEART: No pericardial effusion. PULMONARY ARTERIES: No emboli are present major pulmonary arteries. Evaluation is slightly limited a s discussed above. HILAR AND MEDIASTINAL STRUCTURES: There is increased soft tissue density in the left hilum. Several small nonspecific mediastinal nodes are present. HARDWARE: Surgical clips. UPPER ABDOMEN: See separate report of the CT of the abdomen. THYROID AND OTHER SOFT TISSUES: No masses. No adenopathy. BONES: No acute or significant finding. 3D MIPS: Confirm above findings. OTHER: No other significant finding. IMPRESSION: 1. There is significantly reduced volume in the left lung because of partial pneumonect mildred and pathology described below. 2. Left pleural effusion. 3. Left lower lobe pneumonia versus atelectasis. This could represent post obstructive pneumonia se condary to a left hilar mass. 4. No major pulmonary emboli are seen. Evaluation of smaller pulmonary arteries was limited. COMMENT: Quality ID # [id number]: Final reports with documentation of one or more dose reduction techniques (e.g., Automated exposure control, adjustment of the mA and/or kV according to patient size, use of iterative reconstruction technique) TECHNICAL DOCUMENTATION: JOB ID: [id number] [employer]- All Rights Reserved
--- NOTE | 2017-01-24 11:03 | RADIOLOGY REPORT (SQ) ---
EXAM DESCRIPTION: CT ABD/PELVIS WITH IV ONLY COMPLETED DATE/TIME: 01/24/2017 10:19 am REASON FOR STUDY: lung cancer with met/sepsis COMPARISON: CT chest same date PET-CT 02/14/2016, 04/24/2016, 08/14/2016 TECHNIQUE: CT scan of the abdomen and pelvis performed using helical scanning technique with dynamic intravenous contrast injection. No oral contrast. Images reviewed with lung, soft tissue, and bone windows. Reconstructed coronal and sagittal MPR images reviewed. Delayed images for evaluation of the urinary system also acquired. All images stored on PACS. All CT scanners at this facility use dose modulation, iterative reconstruction, and/or weight based d osing when appropriate to reduce radiation dose to as low as reasonably achievable (ALARA). [facility]: Dose Right [facility]: CareDose [facility]: Dose Right [facility]: Teradose 4D [facility]: [email or web address] CONTRAST TYPE AND DOSE: 70 mL Isovue 370- low osmolar. RENAL FUNCTION: Creatinine 1.2 RADIATION DOSE: Total dose reported on the CT angio chest report today. LIMITATIONS: None. FINDINGS: LOWER CHEST: Please see CT chest today LIVER: Normal size. No masses. No dilated ducts. SPLEEN: Normal size. No focal lesions. PANCREAS: No masses. No significant calcifications. No adjacent inflammation or peripancreatic fluid collections. Pancreatic duct not dilated. GALLBLADDER: No identified stones by CT criteria. No inflammatory changes to suggest cholecystitis. ADRENAL GLANDS: No significant masses or asymmetry. RIGHT KIDNEY AND URETER: No solid masses. Multiple less than 2 cm right renal cortical cysts No sign ificant calcifications. No hydronephrosis or hydroureter. LEFT KIDNEY AND URETER: No solid masses. No significant calcifications. No hydronephrosis or hydr oureter. AORTA AND VESSELS: No aneurysm. No dissection. Renal arteries, SMA, celiac without stenosis. RETROPERITONEUM: No retroperitoneal adenopathy, hemorrhage or masses. BOWEL AND PERITONEAL CAVITY: No masses or inflammatory changes. No free fluid or peritoneal masses. APPENDIX: Normal. PELVIS: No mass. No free fluid. Normal bladder. Prostate 7 x 7 cm in size ABDOMINAL WALL: No masses. No hernias. BONES: No significant or acute findings. OTHER: No other significant finding. IMPRESSION: No definite CT evidence of metastatic disease to the abdomen or pelvis. No CT findings to explain history of sepsis over the abdomen or pelvis. TECHNICAL DOCUMENTATION: JOB ID: [id number] Quality ID # [id number]: Final reports with documentation of one or more dose reduction techniques (e.g., Au tomated exposure control, adjustment of the mA and/or kV according to patient size, use of iterative reconstruction technique) 2010 [employer]- All Rights Reserved
[2017-01-24] MEDS: CHOLECALCIFEROL (D3) 1,000 UNIT TABLET PO SCH (11:31)
[2017-01-24] MEDS: ASPIRIN 81 MG TABLET, ENT COATED PO SCH (11:32)
[2017-01-24] MEDS: LORATADINE 10 MG TABLET PO SCH (11:33)
[2017-01-24] MEDS: CEFEPIME 1 GM/D5W RTU 1 GM/50 ML RTUPB IV SCH ×2 (11:33→21:16)
[2017-01-24] MEDS: TAMSULOSIN HCL 0.4 MG CAP.SR.24H PO SCH (11:34)
[2017-01-24] MEDS: GABAPENTIN 300 MG CAPSULE PO SCH ×2 (11:34→21:16)
[2017-01-24] MEDS: ATORVASTATIN CALCIUM 20 MG TABLET PO SCH (11:34)
--- NOTE | 2017-01-24 11:41 | PDOC CONSULTATION ---
Consultation Consult Date: 01/24/17 Attending physician:: TESSY CLEMENT Consult reason:: Dyspnea History of Present Illness Admission Date/PCP: 01/23/17 15:41 TESSY CLEMENT MD History of Present Illness: 66-year-old male with known history of stage IV lung cancer(He is currently on biologic therapy) as well as emphysema adversely affect his activities of daily living. He became acutely on chronically is more short of breath and presented to the emergency room he had a dry cough and denies any hemoptysis his PPD status is unknown per patient he admits that prior to this incident he was actually act dyspnea with activities of daily living. He is in no hemoptysis. He has no history of chronic lung disease as a child or adolescent. He admits to exposure to passive smoke as a child as well as an adult he is smoked one half packs a day for 34 years but has not smoked in the last 5 years. 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 He has no pets and denies any recent travel. He has occasional tightness in his chest (history of coronary artery disease with 2 stents but he denies SC) he sleeps on 2 pillows admits to occasional PND occasional nocturnal cough as well as some edema. 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 GI Medical History: Reports: Gastroesophageal Reflux Disease, Hiatal Hernia Musculoskeltal Medical History: Reports: Arthritis Psychiatric Medical History: Reports: Depression Hematology: Reports: Anemia Past Surgical History Past Surgical History: Reports: Cardiac Catheterization - with 2 stents placed 7 -8 years ago, Coronary Stent, Other - Coronary artery stents 2;left upper lobectomy Social History Information Source: Patient, [facility] Records Lives with: Family Smoking Status: Former Smoker Cigarettes Packs Per Day: 2 Number of Years Smokin Last Time Smoked: 5yrs Frequency of Alcohol Use: None Hx Recreational Drug Use: No Drugs: None Hx Prescription Drug Abuse: No Do you have pets?: No Have you had any respiratory illnesses as a child?: No Have you been exposed to any sick contacts recently?: No Have you had any recent respiratory illnesses?: Yes Have you travelled outside of [place] in the past 12 months?: No - Advance Directive Resuscitation Status: Full Code Family History Family History: Reviewed & Not Pertinent, CVA, DM, Hypertension, Malignancy Parental Family History Reviewed: Yes Children Family History Reviewed: Yes Sibling(s) Family History Reviewed.: Yes Medication/Allergy Home Medications: Albuterol Sulfate [Albuterol Sulfate 2.5mg/3 mL] 1 vial IH Q8HP PRN 01/23/17 Albuterol Sulfate [Proair HFA] 2 puff IH Q4 PRN 01/23/17 Aspirin [Aspirin EC] 81 mg PO DAILY 01/23/17 Atorvastatin Calcium [Lipitor 20 mg Tablet] 20 mg PO DAILY 01/23/17 Cholecalciferol (Vitamin D3) [Vitamin D3 2000 unit Tablet] 2,000 unit PO DAILY 01/23/17 Clopidogrel Bisulfate [Plavix 75 mg Tablet] 75 mg PO DAILY 01/23/17 Dexamethasone [Decadron 4 Mg Tablet] 4 mg PO DAILY 01/23/17 Ergocalciferol (Vitamin D2) [Vitamin D2] 50,000 unit PO PALENCIA@1000 01/23/17 Finasteride [Proscar 5 mg Tablet] 5 mg PO QHS 01/23/17 Gabapentin [Neurontin 300 mg Capsule] 600 mg PO Q12 01/23/17 Ipratropium/Albuterol Sulfate [Combivent Inhaler] 1 puff IH Q8 01/23/17 Loratadine [Claritin 10 mg Tablet] 10 mg PO DAILY 01/23/17 Metoprolol Succinate [Toprol Xl 25 mg Tab.sr] 25 mg PO DAILY 01/23/17 Nitroglycerin [Nitrostat 0.4 mg (1/150 Gr) Tabs 25/Bottle] 1 tab SL Q5MP PRN Omeprazole 20 mg PO BID 01/23/17 Tamsulosin HCl [Flomax] 0.4 mg PO DAILY 01/23/17 Allergies/Adverse Reactions: No Known Drug Allergies Allergy (Unknown, Verified 01/23/17 12:54) Physical Exam Vital Signs: Temp Pulse Resp BP Pulse Ox 98.4 F 78 18 134/74 H 98 01/24/17 04:00 01/24/17 08:49 01/24/17 08:49 01/24/17 09:31 01/24/17 09:31 Intake & Output 01/23/17 01/24/17 01/25/17 06:59 06:59 06:59 Intake Total 1280 Output Total 790 Balance 490 Weight 88.5 kg General appearance: PRESENT: no acute distress, cooperative, disheveled, thin, well-developed Head exam: PRESENT: atraumatic, normocephalic Eye exam: PRESENT: conjunctiva pale, EOMI Mouth exam: PRESENT: dry mucosa, neck supple, tongue midline Neck exam: ABSENT: carotid bruit, JVD, lymphadenopathy, thyromegaly Respiratory exam: PRESENT: decreased breath sounds, prolonged expiratory phas, rales, rhonchi, symmetrical, tachypnea, unlabored, wheezes. ABSENT: retraction , stridor Cardiovascular exam: PRESENT: RRR, +S1, +S2 Pulses: PRESENT: normal radial pulses GI/Abdominal exam: PRESENT: normal bowel sounds, soft. ABSENT: distended, guarding, mass, organolmegaly, rebound, tenderness Rectal exam: PRESENT: deferred Musculoskeletal exam: PRESENT: tenderness Neurological exam: PRESENT: alert, awake. ABSENT: altered Psychiatric exam: PRESENT: normal mood Skin exam: PRESENT: dry, warm Results Laboratory Results: 01/24/17 04:55 01/24/17 04:55 01/23/17 01/24/17 01/24/17 16:16 04:55 04:55 WBC 10.0 RBC 3.59 L Hgb 11.8 L Hct 34.0 L MCV 95 MCH 32.9 MCHC 34.8 RDW 15.2 H Plt Count 109 L Seg Neutrophils % Not Reportable Lymphocytes % Not Reportable Monocytes % Not Reportable Eosinophils % Not Reportable Basophils % Not Reportable Absolute Neutrophils Not Reportable Absolute Lymphocytes Not Reportable Absolute Monocytes Not Reportable Absolute Eosinophils Not Reportable Absolute Basophils Not Reportable Sodium 132.3 L Potassium 5.3 H Chloride 100 Carbon Dioxide 19 L Anion Gap 13 BUN 33 H Creatinine 1.16 Est GFR ( Amer) > 60 Est GFR (Non-Af Amer) > 60 Glucose 375 H Lactic Acid 2.5 H Calcium 8.8 Magnesium 01/24/17 04:55 WBC RBC Hgb Hct MCV MCH MCHC RDW Plt Count Seg Neutrophils % Lymphocytes % Monocytes % Eosinophils % Basophils % Absolute Neutrophils Absolute Lymphocytes Absolute Monocytes Absolute Eosinophils Absolute Basophils Sodium Potassium Chloride Carbon Dioxide Anion Gap BUN Creatinine Est GFR ( Amer) Est GFR (Non-Af Amer) Glucose Lactic Acid Calcium Magnesium 1.8 01/23/17 01/23/17 01/23/17 16:16 16:16 22:40 Creatine Kinase < 20 L < 20 L CK-MB (CK-2) 2.06 Troponin I 0.028 NT-Pro-B Natriuret Pep 01/23/17 01/24/17 01/24/17 22:40 04:55 04:55 Creatine Kinase < 20 L CK-MB (CK-2) 2.13 1.88 Troponin I 0.019 0.016 NT-Pro-B Natriuret Pep 01/24/17 04:55 Creatine Kinase CK-MB (CK-2) Troponin I NT-Pro-B Natriuret Pep 1200 H Impressions: Head MRI 01/23/17 00:00 IMPRESSION: Multiple varying size rim enhancing masses are identified in both the cerebral hemispheres as well as both cerebellar hemispheres consistent with metastatic disease. The largest of these is identified in the left frontoparietal region over the convexity. MINIMAL MICROVASCULAR ISCHEMIC CHANGE. Other findings as noted above. EVIDENCE OF ACUTE STROKE: NO. Chest X-Ray 01/23/17 13:39 IMPRESSION: Trace left pleural effusion Left hilar enlargement with left lower lobe pneumonia, likely postobstructive. Consider chest CT for followup. Abdomen/Pelvis CT 01/24/17 00:00 IMPRESSION: No definite CT evidence of metastatic disease to the abdomen or pelvis. No CT findings to explain history of sepsis over the abdomen or pelvis. Chest/Abdomen CTA 01/24/17 09:34 IMPRESSION: 1. There is significantly reduced volume in the left lung because of partial pneumonectomy and pathology described below. 2. Left pleural effusion. 3. Left lower lobe pneumonia versus atelectasis. This could represent post obstructive pneumonia secondary to a left hilar mass. 4. No major pulmonary emboli are seen. Evaluation of smaller pulmonary arteries was limited. Assessment & Plan - Diagnosis (1) Subacute pulmonary embolism Is this a current diagnosis for this admission?: Yes Plan: Underlying malignancy certainly increases probability CTA was not conclusive (2) Atrial fibrillation Qualifiers: Atrial fibrillation type: unspecified Qualified Code(s): I48.91 - Unspecified atrial fibrillation Is this a current diagnosis for this admission?: Yes (3) Coronary artery disease Qualifiers: Coronary Disease-Associated Artery/Lesion type: unspecified vessel or lesion type Is this a current diagnosis for this admission?: Yes Plan: Has not had any angina since stent placement (4) Postobstructive pneumonia Is this a current diagnosis for this admission?: Yes Plan: Verified by CT scan of the chest to of 2 blood cultures positive for gram- positive cocci (5) 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
[2017-01-24] MEDS: INSULIN LISPRO 100 UNIT/ML 3 ML VIAL SUBCUT SCH ×2 (12:03→17:36)
[2017-01-24] MEDS: LEVOFLOXACIN 500 MG/D5W RTU 500 MG/100 ML RTUPB IV SCH (12:19)
[2017-01-24] MEDS: LEVALBUTEROL HCL NEB 1.25 MG/3 ML AMPUL NEB SCH ×2 (13:47→19:51)
[2017-01-24] MEDS: CLOPIDOGREL BISULFATE 75 MG TABLET PO SCH (14:14)
[2017-01-24] MEDS: ENOXAPARIN SODIUM INJ 40 MG/0.4 ML DISP.SYRIN SUBCUT SCH (14:15)
[2017-01-24] MEDS ORDERED: METHYLPREDNISOLONE INJ 125 MG/2 ML SDV IV SCH (18:00)
[2017-01-24] MEDS ORDERED: METOPROLOL SUCCINATE 25 MG TAB.SR.24H PO ONE (20:30)
[2017-01-24] MEDS: FINASTERIDE 5 MG TABLET PO SCH (21:16)
[2017-01-24] MEDS: INSULIN GLARGINE,HUM.REC.ANLOG 300 UNIT/3 ML INSULN.PEN SUBCUT SCH (21:20)
[2017-01-25 00:21] LABS: FREE T3 3.11 pg/mL (2.77-5.27)
[2017-01-25 00:35] LABS: THYROID STIMULATING HORMONE 1.89 uIU/mL (0.47-4.68)
--- NOTE | 2017-01-25 03:22 | CONSULTATION REPORT E ---
Consultation Report NAME: LUCIO ROJO : 1950 AGE: 66Y DATE: 01/24/2017 304 B TO: LEESA JOHNS M.D. FROM: TESSY HUNT M.D. Requesting Physician CHIEF COMPLAINT: Atrial fibrillation with rapid ventricular response. HISTORY OF PRESENT ILLNESS: This 66-year-old very pleasant gentleman was admitted through the ER because of left lower lobe pneumonia with pneumonia symptoms. Chest x-ray showed that he had a previous left pneumonectomy but now has a left lower lobe pneumonia with effusion and there is no evidence of pulmonary embolism. After admission, he was put in the IMCU. His usual medications were continued except for Toprol-XL 25 mg once a day which was ordered to begin a day following admission on 01/24/2017 at 10:00 a.m. His heart rhythm was fine showing sinus rhythm with sinus tachycardia due to the acuity of the infection. The patient was comfortable, had no chest pains but only mild shortness of breath and his usual pneumonia symptoms. Then on 01/24/17 at approximately 2:00 a.m., he went into sudden onset atrial fibrillation with rapid ventricular response with VR as high as [address] Hunt then started him on IV Cardizem and the drip rate was titrated based on his ventricular response. Then at 10:00 a.m., his Toprol dose of 25 mg was restarted. Over the next few hours, his heart rhythm spontaneously converted back to sinus rhythm with only 1 recurrence of atrial fibrillation for a short time, and then he reconverted back to the sinus rhythm. Cardiology consultation was requested by Dr. Hunt because of patient's atrial fibrillation. It needs to be noted that patient has never had any history of atrial fibrillation in the past but is known to have frequent PACs on a recent Holter done on 08/16/16 which showed that he had increased PACs, particularly during sleep but he also had very short PATs. For this reason, he was started on Toprol XL 25 mg once a day which he took until 01/23/17. Recent labs showed his TSH to be 2.13 which is normal, and therefore he does not have hyperthyroidism. His echo on 08/30/16 showed mild AV sclerosis, no mitral stenosis, and mild mitral regurgitation, upper normal left atrial size, mild left ventricular hypertrophy, with a normal left ventricular ejection fraction and stage I left ventricular diastolic dysfunction with no regional wall motion abnormality and no left ventricular dilation and no pulmonary hypertension. His MPI stress test done on 08/10/16 showed no Lexiscan induced reversible ischemic defect but there was a medium sized area of severe fixed perfusion defect in the apical anterior wall with a small but severe fixed perfusion defect in the base of inferoseptal wall from prev. IN, with a post stress ejection fraction of 52%. It was known that his magnesium was on the low side, 1.5, due to his diabetes and concomitant omeprazole treatment. OTHER SIGNIFICANT MEDICAL PROBLEMS: Include: 1. Coronary artery disease. 2. Status post BMS to the proximal RCA, MICAH to the proximal LAD; both were done in [address] Cervantes. Since then he was on aspirin and Plavix, and was lost to followup for many years. He returned to my clinic for followup in August of 2016. 3. Hypercholesterolemia, on Lipitor 20 mg daily. His LDL was down to 36 as of July 2016. 4. Known hypomagnesemia, and he was given magnesium infusions and oral supplements by his oncologist. 5. Essential hypertension, treated since 2005, and has been on Toprol 25 mg daily. 6. Squamous cell lung carcinoma with brain metastases and is status post radiation and chemotherapy, CyberKnife therapy with radiation to the brain, currently getting immunotherapy twice a month by Dr. Eldridge at [facility]. This is against a background of COPD from previous smoking. His oncologist currently is Dr. Aldana. Patient has been receiving steroid treatment for occasional reactions from his cancer chemo and radiation therapy. CURRENT MEDICATIONS: Include: 1. Aspirin 81 mg daily. 2. Nitrostat p.r.n. 3. Toprol XL 25 mg daily. 4. Plavix 75 mg daily. 5. Lipitor 20 mg daily. 6. Omeprazole. 7. Gabapentin. 8. Ferrous sulfate. 9. Finasteride. 10. Tamsulosin. 11. Symbicort. 12. Vitamin D. 13. Insulin. 14. OxyContin. OTHER PAST MEDICAL HISTORY: Includes: 1. Anemia. 2. Arthritis. 3. Diabetes. 4. GERD. SURGICAL HISTORY: Includes: 1. Multiple stents in 2005. 2. Left upper lobe lobectomy for cancer of the lung. SOCIAL HISTORY: Patient no longer smokes but was a smoker greater than 10 years ago. He currently does not drink. He has minimal caffeine intake. ALLERGIES: None known. REVIEW OF SYSTEMS: CONSTITUTION: Show that he is fatigued and tired but is without any fever or chills. There was recent weight loss due to his cancer and his treatment. EAR, NOSE, THROAT: No symptoms. CARDIOVASCULAR: Patient has no angina but does have dyspnea with exertion, no peripheral edema, orthopnea, and has rare palpitations with a past history of short episodes of PAT but never had atrial fibrillation. RESPIRATORY: Consists of cough, dyspnea. No sputum. No hemoptysis. GI: No abdominal pain, constipation, or diarrhea, hematemesis or blood in the stool, and no nausea or vomiting. : No dysuria or hematuria. MUSCULOSKELETAL: Occasional joint swelling and muscle weakness. NEUROLOGICAL: No abnormal gait, abnormal speech, confusion, dizziness, or syncope. He does have muscle weakness. PSYCHIATRIC: Patient does not have anxiety, depression, or suicidal ideation. ENDOCRINE: He has polyuria, polydipsia. HEMATOLOGICAL: He has easy bruising. PHYSICAL EXAMINATION: VITAL SIGNS: Blood pressure was 125/71, heart rate was sinus rhythm at 92 beats per minute. His range in systolic pressure since admission has been 108-134. Respirations 16, and pulse oximetry is 100%. GENERAL APPEARANCE: Patient does not appear to be in any acute distress. He is tall and well developed although he has lost about 30 pounds recently. HEENT: Normocephalic skull. Pupils equal and reactive to light and accommodation. EAR, NOSE, THROAT: Normal. NECK: JVP was distended. No carotid or vertebral bruit. Thyroid was not enlarged. HEART: PMI not palpable. S4 was present. S1 normal, S2 normal. A grade II/ systolic ejection murmur was heard in the left sternal border. There is no bruit. His peripheral pulses were not palpable. LUNGS: Poor air entry and significantly diminished breath sounds in the left lower lobe posterior. No rhonchi, no crepitations. CHEST: No rib cage or sternal tenderness. There is a left lateral chest scar from left upper lobectomy. ABDOMEN: Moderate distention but no hepatosplenomegaly. Bowel sounds were normal. EXTREMITIES: No ankle edema. Peripheral pulses were faint. NEUROLOGIC: Memory to be intact. He recognized me readily. There was no neurological deficit. IMAGING STUDIES: His MRI of the brain shows multiple small metastases in the brain, especially in the cerebral and cerebellar hemispheres, and especially in the left frontal parietal area. His chest x-ray showed left lower lobe pneumonia with left lower lobe effusion. His EKG showed atrial fibrillation, 149, no acute change other than rhythm disturbance. His admission EKG showed sinus rhythm. LABORATORY DATA: Hemoglobin 11.8, white cell count 10,000, and platelets 109,000. BUN 33, creatinine 1.16. Sodium 132, potassium 5.3. Troponin I was 0.028 to 0.016 trending down. NT-BNP was normal at 1200. ASSESSMENT AND PLAN: 1. New onset atrial fibrillation. This was new onset at approximately 2:00 a.m. on 01/24/17, secondary to missing his Toprol 25 mg daily the day before. Initially, he had rapid ventricular response. This was brought under rate control with IV Cardizem. Upon resumption of the Toprol XL 25 mg at 10:00 a.m. the next morning, 01/24/17, within a few hours he reverted back to normal sinus rhythm without the need for direct current cardioversion. Since then he has remained in normal sinus rhythm. Tonight I decided to give him an extra dose of the missed Toprol XL 25 mg as a stat dose, and then within an hour we should be able to terminate the IV Cardizem drip and put it on standby. 2. Post obstructive pneumonia. Based on the CT scan of the chest. There was no pulmonary embolism. Patient was started on broad spectrum antibiotics, and Pulmonary has been consulted for possible bronchoscopy due to obstruction. 3. Coronary artery disease. Stable, status post stents from 2005, 11 years ago. No anginal symptoms. Recent stress test 08/10/16 showed only a severe fixed perfusion defect in the apical anterior wall and also in the base of inferoseptal wall. There was no reversible ischemia. 4. Hypertension. Under control. 5. Hypercholesterolemia. Under control. 6. Type [address] Hunt. PLAN: 1. Serum magnesium level with T4 TSH has been ordered. 2. Continue with Toprol XL 25 mg daily. 3. May give extra doses if he lapses back into atrial fibrillation. There is no current need for direct oral anticoagulant. 4. Aspirin and Plavix is to be continued for his coronary artery disease and stents. 5. If magnesium is low i.e. less than 2.0, would recommend oral magnesium supplement 400-800 mg daily depending on the deficiency. TIME SPENT: Sixty-five minutes. We will follow the patient as needed. DICTATING PHYSICIAN: LEESA JOHNS M.D. [id number] PHY#: [id number] ID: [id number] JOB#: [id number] ACCT: [id number] cc:LEESA JOHNS M.D. > [facility]
[2017-01-25 05:16] LABS: HEMATOCRIT 30.2 % (37.9-51.0); HEMOGLOBIN 10.5 g/dL (13.5-17.0); HGB HCT DIFFERENCE 1.3; MEAN CORPUSCULAR HEMOGLOBIN 33.1 pg (27.0-33.4); MEAN CORPUSCULAR HGB CONC 34.8 g/dL (32.0-36.0); MEAN CORPUSCULAR VOLUME 95 fl (80-97); RED BLOOD COUNT 3.18 10^6/uL (4.35-5.55); RED CELL DISTRIBUTION WIDTH 14.9 % (11.5-14.0); WHITE BLOOD COUNT 7.1 10^3/uL (4.0-10.5)
[2017-01-25 05:33] LABS: ANION GAP 12 (5-19); BLOOD UREA NITROGEN 38 mg/dL (7-20); CALCIUM 8.8 mg/dL (8.4-10.2); CARBON DIOXIDE 21 mmol/L (22-30); CHLORIDE 101 mmol/L (98-107); CREATININE RESULT 1.07 mg/dL (0.52-1.25); POTASSIUM 4.7 mmol/L (3.6-5.0); SODIUM 134.2 mmol/L (137-145)
[2017-01-25 05:45] LABS: ANISOCYTOSIS SLIGHT; BAND NEUTROPHILS % (MANUAL) 2 % (3-5); BASOPHILS % (MANUAL) 0 % (0-2); EOSINOPHILS % (MANUAL) 0 % (0-6); LYMPHOCYTES % (MANUAL) 2 % (13-45); TOTAL CELLS COUNTED 100; TOXIC GRANULATION 1+
[2017-01-25 05:46] LABS: GLUCOSE 412 mg/dL (75-110)
[2017-01-25] MEDS: LANSOPRAZOLE 15 MG TAB.RAP.DR PO SCH ×2 (06:24→17:34)
[2017-01-25] MEDS: OXYCODONE HCL SR 10 MG TABLET PO PRN ×4 (06:25→22:32)
[2017-01-25] MEDS: LEVALBUTEROL HCL NEB 1.25 MG/3 ML AMPUL NEB SCH ×3 (07:42→19:32)
[2017-01-25] MEDS: INSULIN LISPRO 100 UNIT/ML 3 ML VIAL SUBCUT PRN ×4 (08:06→22:31)
[2017-01-25] MEDS: INSULIN LISPRO 100 UNIT/ML 3 ML VIAL SUBCUT SCH ×3 (08:06→17:33)
--- NOTE | 2017-01-25 09:04 | PDOC PROGRESS REPORT ---
Subjective Progress Note for:: 01/25/17 Subjective:: Patient is currently doing fair. Patient seen by the database marketing analyst and adjust the beta-parish and patients currently off the Cardizem drip Patient's currently aspirin and Plavix and not a good candidate for anticoagulationsDue to the brain metastases and multiple other comorbidity and as per discussed with the oncology Patient also seen by Dr. Vermaeen This with the patient and the were extensively about the all the test reports Physical Exam Vital Signs: Temp Pulse Resp BP Pulse Ox 97.5 F 63 16 114/65 98 01/25/17 04:59 01/25/17 07:42 01/25/17 07:42 01/25/17 04:59 01/25/17 07:42 Intake & Output 01/24/17 01/25/17 01/26/17 06:59 06:59 06:59 Intake Total 1280 3175 Output Total 790 2900 Balance 490 275 Weight 88.5 kg 88.7 kg General appearance: PRESENT: no acute distress, well-developed, well-nourished Head exam: PRESENT: atraumatic, normocephalic Eye exam: PRESENT: conjunctiva pink, EOMI, PERRLA. ABSENT: scleral icterus Ear exam: PRESENT: normal external ear exam Mouth exam: PRESENT: moist, tongue midline Neck exam: PRESENT: full ROM. ABSENT: carotid bruit, JVD, lymphadenopathy, thyromegaly Respiratory exam: PRESENT: clear to auscultation concetta Cardiovascular exam: PRESENT: RRR. ABSENT: diastolic murmur, rubs, systolic murmur Pulses: PRESENT: normal dorsalis pedis pul, +2 pedal pulses bilateral Vascular exam: PRESENT: normal capillary refill GI/Abdominal exam: PRESENT: normal bowel sounds, soft. ABSENT: distended, guarding, mass, organolmegaly, rebound, tenderness Rectal exam: PRESENT: deferred Extremities exam: ABSENT: pedal edema Neurological exam: PRESENT: alert, awake, oriented to person, oriented to place , oriented to time, oriented to situation, CN II-XII grossly intact. ABSENT: motor sensory deficit Psychiatric exam: PRESENT: appropriate affect, normal mood. ABSENT: homicidal ideation, suicidal ideation Skin exam: PRESENT: dry, intact, warm. ABSENT: cyanosis, rash Results Laboratory Results: 01/25/17 03:52 01/25/17 03:52 01/24/17 01/24/17 01/25/17 04:55 04:55 03:52 WBC 7.1 RBC 3.18 L Hgb 10.5 L Hct 30.2 L MCV 95 MCH 33.1 MCHC 34.8 RDW 14.9 H Plt Count 101 L Seg Neutrophils % Not Reportable Lymphocytes % Not Reportable Monocytes % Not Reportable Eosinophils % Not Reportable Basophils % Not Reportable Absolute Neutrophils Not Reportable Absolute Lymphocytes Not Reportable Absolute Monocytes Not Reportable Absolute Eosinophils Not Reportable Absolute Basophils Not Reportable Sodium Potassium Chloride Carbon Dioxide Anion Gap BUN Creatinine Est GFR ( Amer) Est GFR (Non-Af Amer) Glucose Calcium Magnesium 1.8 TSH 1.89 Free T4 1.37 Free T3 pg/mL 3.11 01/25/17 03:52 WBC RBC Hgb Hct MCV MCH MCHC RDW Plt Count Seg Neutrophils % Lymphocytes % Monocytes % Eosinophils % Basophils % Absolute Neutrophils Absolute Lymphocytes Absolute Monocytes Absolute Eosinophils Absolute Basophils Sodium 134.2 L Potassium 4.7 Chloride 101 Carbon Dioxide 21 L Anion Gap 12 BUN 38 H Creatinine 1.07 Est GFR ( Amer) > 60 Est GFR (Non-Af Amer) > 60 Glucose 412 H* Calcium 8.8 Magnesium TSH Free T4 Free T3 pg/mL 01/23/17 01/23/17 01/23/17 16:16 16:16 22:40 Creatine Kinase < 20 L < 20 L CK-MB (CK-2) 2.06 Troponin I 0.028 NT-Pro-B Natriuret Pep 01/23/17 01/24/17 01/24/17 22:40 04:55 04:55 Creatine Kinase < 20 L CK-MB (CK-2) 2.13 1.88 Troponin I 0.019 0.016 NT-Pro-B Natriuret Pep 01/24/17 04:55 Creatine Kinase CK-MB (CK-2) Troponin I NT-Pro-B Natriuret Pep 1200 H Impressions: Head MRI 01/23/17 00:00 IMPRESSION: Multiple varying size rim enhancing masses are identified in both the cerebral hemispheres as well as both cerebellar hemispheres consistent with metastatic disease. The largest of these is identified in the left frontoparietal region over the convexity. MINIMAL MICROVASCULAR ISCHEMIC CHANGE. Other findings as noted above. EVIDENCE OF ACUTE STROKE: NO. Chest X-Ray 01/23/17 13:39 IMPRESSION: Trace left pleural effusion Left hilar enlargement with left lower lobe pneumonia, likely postobstructive. Consider chest CT for followup. Abdomen/Pelvis CT 01/24/17 00:00 IMPRESSION: No definite CT evidence of metastatic disease to the abdomen or pelvis. No CT findings to explain history of sepsis over the abdomen or pelvis. Chest/Abdomen CTA 01/24/17 09:34 IMPRESSION: 1. There is significantly reduced volume in the left lung because of partial pneumonectomy and pathology described below. 2. Left pleural effusion. 3. Left lower lobe pneumonia versus atelectasis. This could represent post obstructive pneumonia secondary to a left hilar mass. 4. No major pulmonary emboli are seen. Evaluation of smaller pulmonary arteries was limited. 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 Is this a current diagnosis for this admission?: Yes Plan: With the disease is more progress with the MRI so some multiple lesion will get the CT of the chest and abdomen and pelvis per the oncology request (3) Type 2 diabetes mellitus Qualifiers: Diabetes mellitus complication status: with unspecified complications Is this a current diagnosis for this admission?: Yes Plan: Adjust the insulin and reduce the steroid (4) Hypertension Qualifiers: Hypertension type: essential hypertension Qualified Code(s): I10 - Essential (primary) hypertension Is this a current diagnosis for this admission?: Yes Plan: Continues current medication (5) Chronic obstructive pulmonary disease Qualifiers: COPD type: unspecified COPD Qualified Code(s): J44.9 - Chronic obstructive pulmonary disease, unspecified Is this a current diagnosis for this admission?: Yes Plan: Will DC the DuoNeb and started on Xopenex due to the A. fib (6) Hyperlipidemia Qualifiers: Hyperlipidemia type: unspecified Qualified Code(s): E78.5 - Hyperlipidemia , unspecified Is this a current diagnosis for this admission?: Yes (7) Weight loss Is this a current diagnosis for this admission?: Yes Plan: Consult the dietitian's (8) Leukocytosis Qualifiers: Leukocytosis type: bandemia Qualified Code(s): D72.825 - Bandemia Is this a current diagnosis for this admission?: Yes Plan: Possible from pneumonia versus the steroid (9) Coronary artery disease Qualifiers: Coronary Disease-Associated Artery/Lesion type: unspecified vessel or lesion type Is this a current diagnosis for this admission?: Yes (10) Atrial fibrillation Qualifiers: Atrial fibrillation type: unspecified Qualified Code(s): I48.91 - Unspecified atrial fibrillation Is this a current diagnosis for this admission?: Yes Plan: Patient's currently continues to current medications follow with the cardiology - Time Time Spent with patient: 15-24 minutes Medications reviewed and adjusted accordingly: Yes Anticipated discharge: Home Within: Other - Inpatient Certification Medical Necessity: Need Close Monitoring Due to Risk of Patient Decompensation, Need for IV Antibiotics Post Hospital Care: D/C Performance Improvement Consultant Documentation - Plan Summary Plan Summary: see md rose
--- NOTE | 2017-01-25 09:18 | PDOC PROGRESS REPORT ---
Subjective Progress Note for:: 01/25/17 Subjective:: Today had a long discussion with patient, I went over all of the recent imaging as well as the new findings on imaging, today spent about 45 minutes in discussion, also discussed his case with Dr. Eldridge, his oncologist in [place]. Physical Exam Vital Signs: Temp Pulse Resp BP Pulse Ox 97.5 F 63 16 114/65 98 01/25/17 04:59 01/25/17 07:42 01/25/17 07:42 01/25/17 04:59 01/25/17 07:42 Intake & Output 01/24/17 01/25/17 01/26/17 06:59 06:59 06:59 Intake Total 1280 3175 Output Total 790 2900 Balance 490 275 Weight 88.5 kg 88.7 kg General appearance: PRESENT: no acute distress, well-developed, well-nourished Head exam: PRESENT: atraumatic, normocephalic Eye exam: PRESENT: conjunctiva pink, EOMI, PERRLA. ABSENT: scleral icterus Ear exam: PRESENT: normal external ear exam Mouth exam: PRESENT: moist, tongue midline Neck exam: ABSENT: carotid bruit, JVD, lymphadenopathy, thyromegaly Respiratory exam: PRESENT: clear to auscultation concetta. ABSENT: rales, rhonchi, wheezes Cardiovascular exam: PRESENT: RRR. ABSENT: diastolic murmur, rubs, systolic murmur Pulses: PRESENT: normal dorsalis pedis pul Vascular exam: PRESENT: normal capillary refill GI/Abdominal exam: PRESENT: normal bowel sounds, soft. ABSENT: distended, guarding, mass, organolmegaly, rebound, tenderness Rectal exam: PRESENT: deferred Extremities exam: PRESENT: full ROM. ABSENT: calf tenderness, clubbing, pedal edema Neurological exam: PRESENT: alert, awake, oriented to person, oriented to place , oriented to time, oriented to situation, CN II-XII grossly intact. ABSENT: motor sensory deficit Psychiatric exam: PRESENT: appropriate affect, normal mood. ABSENT: homicidal ideation, suicidal ideation Skin exam: PRESENT: dry, intact, warm. ABSENT: cyanosis, rash Results Laboratory Results: 01/25/17 03:52 01/25/17 03:52 01/24/17 01/24/17 01/25/17 04:55 04:55 03:52 WBC 7.1 RBC 3.18 L Hgb 10.5 L Hct 30.2 L MCV 95 MCH 33.1 MCHC 34.8 RDW 14.9 H Plt Count 101 L Seg Neutrophils % Not Reportable Lymphocytes % Not Reportable Monocytes % Not Reportable Eosinophils % Not Reportable Basophils % Not Reportable Absolute Neutrophils Not Reportable Absolute Lymphocytes Not Reportable Absolute Monocytes Not Reportable Absolute Eosinophils Not Reportable Absolute Basophils Not Reportable Sodium Potassium Chloride Carbon Dioxide Anion Gap BUN Creatinine Est GFR ( Amer) Est GFR (Non-Af Amer) Glucose Calcium Magnesium 1.8 TSH 1.89 Free T4 1.37 Free T3 pg/mL 3.11 01/25/17 03:52 WBC RBC Hgb Hct MCV MCH MCHC RDW Plt Count Seg Neutrophils % Lymphocytes % Monocytes % Eosinophils % Basophils % Absolute Neutrophils Absolute Lymphocytes Absolute Monocytes Absolute Eosinophils Absolute Basophils Sodium 134.2 L Potassium 4.7 Chloride 101 Carbon Dioxide 21 L Anion Gap 12 BUN 38 H Creatinine 1.07 Est GFR ( Amer) > 60 Est GFR (Non-Af Amer) > 60 Glucose 412 H* Calcium 8.8 Magnesium TSH Free T4 Free T3 pg/mL 01/23/17 01/23/17 01/23/17 16:16 16:16 22:40 Creatine Kinase < 20 L < 20 L CK-MB (CK-2) 2.06 Troponin I 0.028 NT-Pro-B Natriuret Pep 01/23/17 01/24/17 01/24/17 22:40 04:55 04:55 Creatine Kinase < 20 L CK-MB (CK-2) 2.13 1.88 Troponin I 0.019 0.016 NT-Pro-B Natriuret Pep 01/24/17 04:55 Creatine Kinase CK-MB (CK-2) Troponin I NT-Pro-B Natriuret Pep 1200 H Impressions: Head MRI 01/23/17 00:00 IMPRESSION: Multiple varying size rim enhancing masses are identified in both the cerebral hemispheres as well as both cerebellar hemispheres consistent with metastatic disease. The largest of these is identified in the left frontoparietal region over the convexity. MINIMAL MICROVASCULAR ISCHEMIC CHANGE. Other findings as noted above. EVIDENCE OF ACUTE STROKE: NO. Chest X-Ray 01/23/17 13:39 IMPRESSION: Trace left pleural effusion Left hilar enlargement with left lower lobe pneumonia, likely postobstructive. Consider chest CT for followup. Abdomen/Pelvis CT 01/24/17 00:00 IMPRESSION: No definite CT evidence of metastatic disease to the abdomen or pelvis. No CT findings to explain history of sepsis over the abdomen or pelvis. Chest/Abdomen CTA 01/24/17 09:34 IMPRESSION: 1. There is significantly reduced volume in the left lung because of partial pneumonectomy and pathology described below. 2. Left pleural effusion. 3. Left lower lobe pneumonia versus atelectasis. This could represent post obstructive pneumonia secondary to a left hilar mass. 4. No major pulmonary emboli are seen. Evaluation of smaller pulmonary arteries was limited. 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 We will see patient next week as well.
[2017-01-25] MEDS ORDERED: METHYLPREDNISOLONE INJ 40 MG/1 ML SDV IV SCH (10:00)
[2017-01-25] MEDS: LORATADINE 10 MG TABLET PO SCH (11:02)
[2017-01-25] MEDS: CHOLECALCIFEROL (D3) 1,000 UNIT TABLET PO SCH (11:03)
[2017-01-25] MEDS: ASPIRIN 81 MG TABLET, ENT COATED PO SCH (11:03)
[2017-01-25] MEDS: GABAPENTIN 300 MG CAPSULE PO SCH ×2 (11:03→22:32)
[2017-01-25] MEDS: CEFEPIME 1 GM/D5W RTU 1 GM/50 ML RTUPB IV SCH ×2 (11:04→22:23)
[2017-01-25] MEDS: METOPROLOL SUCCINATE 25 MG TAB.SR.24H PO SCH (11:05)
[2017-01-25] MEDS: TAMSULOSIN HCL 0.4 MG CAP.SR.24H PO SCH (11:05)
[2017-01-25] MEDS: ATORVASTATIN CALCIUM 20 MG TABLET PO SCH (11:05)
[2017-01-25] MEDS: CLOPIDOGREL BISULFATE 75 MG TABLET PO SCH (11:06)
[2017-01-25] MEDS: LEVOFLOXACIN 500 MG/D5W RTU 500 MG/100 ML RTUPB IV SCH (11:07)
[2017-01-25] MEDS: DEXAMETHASONE 4 MG TABLET PO SCH ×2 (11:10→17:34)
[2017-01-25] MEDS: ENOXAPARIN SODIUM INJ 40 MG/0.4 ML DISP.SYRIN SUBCUT SCH (11:13)
[2017-01-25] MEDS: INSULIN GLARGINE,HUM.REC.ANLOG 300 UNIT/3 ML INSULN.PEN SUBCUT SCH (22:25)
[2017-01-25] MEDS: FINASTERIDE 5 MG TABLET PO SCH (22:33)
[2017-01-26] MEDS: DEXAMETHASONE 4 MG TABLET PO SCH ×5 (01:10→23:56)
[2017-01-26] MEDS: OXYCODONE HCL SR 10 MG TABLET PO SCH ×6 (03:58→23:56)
[2017-01-26 06:46] LABS: HEMATOCRIT 31.1 % (37.9-51.0); HEMOGLOBIN 10.8 g/dL (13.5-17.0); HGB HCT DIFFERENCE 1.3; MEAN CORPUSCULAR HGB CONC 34.6 g/dL (32.0-36.0); MEAN CORPUSCULAR VOLUME 95 fl (80-97); RED BLOOD COUNT 3.26 10^6/uL (4.35-5.55); RED CELL DISTRIBUTION WIDTH 15.2 % (11.5-14.0); WHITE BLOOD COUNT 6.7 10^3/uL (4.0-10.5)
[2017-01-26 06:55] LABS: ANION GAP 11 (5-19); BLOOD UREA NITROGEN 42 mg/dL (7-20); CALCIUM 9.1 mg/dL (8.4-10.2); CARBON DIOXIDE 22 mmol/L (22-30); CHLORIDE 101 mmol/L (98-107); CREATININE RESULT 1.03 mg/dL (0.52-1.25); GLUCOSE 364 mg/dL (75-110); POTASSIUM 4.8 mmol/L (3.6-5.0); SODIUM 133.5 mmol/L (137-145)
[2017-01-26 07:15] LABS: ANISOCYTOSIS SLIGHT; BAND NEUTROPHILS % (MANUAL) 1 % (3-5); BASOPHILS % (MANUAL) 0 % (0-2); EOSINOPHILS % (MANUAL) 0 % (0-6); LYMPHOCYTES % (MANUAL) 2 % (13-45); NUCLEATED RED BLOOD CELLS 1 /100 WBC (0); TOTAL CELLS COUNTED 100; TOXIC GRANULATION SLIGHT
[2017-01-26] MEDS: LANSOPRAZOLE 15 MG TAB.RAP.DR PO SCH ×2 (07:32→16:47)
[2017-01-26] MEDS: INSULIN GLARGINE,HUM.REC.ANLOG 300 UNIT/3 ML INSULN.PEN SUBCUT SCH ×2 (07:34→22:30)
[2017-01-26] MEDS: LEVALBUTEROL HCL NEB 1.25 MG/3 ML AMPUL NEB SCH ×3 (08:16→20:07)
[2017-01-26] MEDS: INSULIN LISPRO 100 UNIT/ML 3 ML VIAL SUBCUT PRN ×4 (08:17→22:30)
[2017-01-26] MEDS: INSULIN LISPRO 100 UNIT/ML 3 ML VIAL SUBCUT SCH ×3 (08:17→16:45)
--- NOTE | 2017-01-26 09:30 | PDOC PROGRESS REPORT ---
Subjective Progress Note for:: 01/26/17 Subjective:: Patient is currently doing much better. Patient's denied any chest pain without any shortness of the breath Patient seen by the Dr. Castillo and patient scheduled for radiation in the brain As per discussed with the pulmonary patient's discharge from the pneumonia [place] with IV antibiotic for another week Discussed with the patient and the family in the room including the and the son regarding the patient's current conditions and as per discussed with the oncology patients can discharged home and follow-up outpatients for possible chemotherapy Physical Exam Vital Signs: Temp Pulse Resp BP Pulse Ox 97.6 F 111 H 18 127/71 H 97 01/26/17 08:42 01/26/17 08:42 01/26/17 08:42 01/26/17 08:42 01/26/17 08:42 Intake & Output 01/25/17 01/26/17 01/27/17 06:59 06:59 06:59 Intake Total 3175 1820 Output Total 2900 Balance 275 1820 Weight 88.7 kg 88.9 kg General appearance: PRESENT: no acute distress, well-developed, well-nourished Head exam: PRESENT: atraumatic, normocephalic Eye exam: PRESENT: conjunctiva pink, EOMI, PERRLA. ABSENT: scleral icterus Ear exam: PRESENT: normal external ear exam Mouth exam: PRESENT: moist, tongue midline Neck exam: PRESENT: full ROM. ABSENT: carotid bruit, JVD, lymphadenopathy, thyromegaly Respiratory exam: PRESENT: clear to auscultation concetta Cardiovascular exam: PRESENT: RRR. ABSENT: diastolic murmur, rubs, systolic murmur Pulses: PRESENT: normal dorsalis pedis pul, +2 pedal pulses bilateral Vascular exam: PRESENT: normal capillary refill GI/Abdominal exam: PRESENT: normal bowel sounds, soft. ABSENT: distended, guarding, mass, organolmegaly, rebound, tenderness Rectal exam: PRESENT: deferred Extremities exam: ABSENT: pedal edema Musculoskeletal exam: PRESENT: ambulatory Neurological exam: PRESENT: alert, awake, oriented to person, oriented to place , oriented to time, oriented to situation, CN II-XII grossly intact. ABSENT: motor sensory deficit Psychiatric exam: PRESENT: appropriate affect, normal mood. ABSENT: homicidal ideation, suicidal ideation Skin exam: PRESENT: dry, intact, warm. ABSENT: cyanosis, rash Results Laboratory Results: 01/26/17 05:56 01/26/17 05:56 01/26/17 01/26/17 05:56 05:56 WBC 6.7 RBC 3.26 L Hgb 10.8 L Hct 31.1 L MCV 95 MCH 33.0 MCHC 34.6 RDW 15.2 H Plt Count 104 L Seg Neutrophils % Not Reportable Lymphocytes % Not Reportable Monocytes % Not Reportable Eosinophils % Not Reportable Basophils % Not Reportable Absolute Neutrophils Not Reportable Absolute Lymphocytes Not Reportable Absolute Monocytes Not Reportable Absolute Eosinophils Not Reportable Absolute Basophils Not Reportable Sodium 133.5 L Potassium 4.8 Chloride 101 Carbon Dioxide 22 Anion Gap 11 BUN 42 H Creatinine 1.03 Est GFR ( Amer) > 60 Est GFR (Non-Af Amer) > 60 Glucose 364 H Calcium 9.1 01/23/17 01/23/17 01/23/17 16:16 16:16 22:40 Creatine Kinase < 20 L < 20 L CK-MB (CK-2) 2.06 Troponin I 0.028 NT-Pro-B Natriuret Pep 01/23/17 01/24/17 01/24/17 22:40 04:55 04:55 Creatine Kinase < 20 L CK-MB (CK-2) 2.13 1.88 Troponin I 0.019 0.016 NT-Pro-B Natriuret Pep 01/24/17 04:55 Creatine Kinase CK-MB (CK-2) Troponin I NT-Pro-B Natriuret Pep 1200 H Impressions: Head MRI 01/23/17 00:00 IMPRESSION: Multiple varying size rim enhancing masses are identified in both the cerebral hemispheres as well as both cerebellar hemispheres consistent with metastatic disease. The largest of these is identified in the left frontoparietal region over the convexity. MINIMAL MICROVASCULAR ISCHEMIC CHANGE. Other findings as noted above. EVIDENCE OF ACUTE STROKE: NO. Chest X-Ray 01/23/17 13:39 IMPRESSION: Trace left pleural effusion Left hilar enlargement with left lower lobe pneumonia, likely postobstructive. Consider chest CT for followup. Abdomen/Pelvis CT 01/24/17 00:00 IMPRESSION: No definite CT evidence of metastatic disease to the abdomen or pelvis. No CT findings to explain history of sepsis over the abdomen or pelvis. Chest/Abdomen CTA 01/24/17 09:34 IMPRESSION: 1. There is significantly reduced volume in the left lung because of partial pneumonectomy and pathology described below. 2. Left pleural effusion. 3. Left lower lobe pneumonia versus atelectasis. This could represent post obstructive pneumonia secondary to a left hilar mass. 4. No major pulmonary emboli are seen. Evaluation of smaller pulmonary arteries was limited. 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 Is this a current diagnosis for this admission?: Yes Plan: With the disease is more progress with the MRI so some multiple lesion will get the CT of the chest and abdomen and pelvis per the oncology request (3) Type 2 diabetes mellitus Qualifiers: Diabetes mellitus complication status: with unspecified complications Is this a current diagnosis for this admission?: Yes Plan: Adjust the insulin and reduce the steroid (4) Hypertension Qualifiers: Hypertension type: essential hypertension Qualified Code(s): I10 - Essential (primary) hypertension Is this a current diagnosis for this admission?: Yes Plan: Continues current medication (5) Chronic obstructive pulmonary disease Qualifiers: COPD type: unspecified COPD Qualified Code(s): J44.9 - Chronic obstructive pulmonary disease, unspecified Is this a current diagnosis for this admission?: Yes Plan: Will DC the DuoNeb and started on Xopenex due to the A. fib (6) Hyperlipidemia Qualifiers: Hyperlipidemia type: unspecified Qualified Code(s): E78.5 - Hyperlipidemia , unspecified Is this a current diagnosis for this admission?: Yes (7) Weight loss Is this a current diagnosis for this admission?: Yes Plan: Consult the dietitian's (8) Leukocytosis Qualifiers: Leukocytosis type: bandemia Qualified Code(s): D72.825 - Bandemia Is this a current diagnosis for this admission?: Yes (9) Coronary artery disease Qualifiers: Coronary Disease-Associated Artery/Lesion type: unspecified vessel or lesion type Is this a current diagnosis for this admission?: Yes Plan: Continues current medications will rule out any acute coronary syndromes (10) Atrial fibrillation Qualifiers: Atrial fibrillation type: unspecified Qualified Code(s): I48.91 - Unspecified atrial fibrillation Is this a current diagnosis for this admission?: Yes Plan: Patient's currently continues to current medications follow with the cardiology - Time Time Spent with patient: 15-24 minutes Medications reviewed and adjusted accordingly: Yes Anticipated discharge: Home Within: within 24 hours - Inpatient Certification Medical Necessity: Need Close Monitoring Due to Risk of Patient Decompensation, Need for IV Antibiotics Post Hospital Care: D/C Data Entry Representative Documentation - Plan Summary Plan Summary: Plan is to put the PICC line today and discharge home with IV antibiotic for another 7 days
[2017-01-26] MEDS: LEVOFLOXACIN 500 MG TABLET PO SCH (09:42)
[2017-01-26] MEDS: MAGNESIUM OXIDE 400 MG TABLET PO SCH (09:42)
[2017-01-26] MEDS: CEFEPIME 1 GM/D5W RTU 1 GM/50 ML RTUPB IV SCH ×2 (09:42→21:30)
[2017-01-26] MEDS: GABAPENTIN 300 MG CAPSULE PO SCH ×2 (09:42→21:29)
[2017-01-26] MEDS: CHOLECALCIFEROL (D3) 1,000 UNIT TABLET PO SCH (09:43)
[2017-01-26] MEDS: METOPROLOL SUCCINATE 25 MG TAB.SR.24H PO SCH (09:43)
[2017-01-26] MEDS: LORATADINE 10 MG TABLET PO SCH (09:43)
[2017-01-26] MEDS: ATORVASTATIN CALCIUM 20 MG TABLET PO SCH (09:43)
[2017-01-26] MEDS: TAMSULOSIN HCL 0.4 MG CAP.SR.24H PO SCH (09:43)
[2017-01-26] MEDS: DOCUSATE SODIUM 100 MG CAPSULE PO SCH ×2 (12:12→21:29)
[2017-01-26] MEDS: CLOPIDOGREL BISULFATE 75 MG TABLET PO SCH (13:00)
[2017-01-26] MEDS: ASPIRIN 81 MG TABLET, ENT COATED PO SCH (13:00)
--- NOTE | 2017-01-26 13:25 | RADIOLOGY REPORT (SQ) ---
EXAM DESCRIPTION: CHEST PA/LAT COMPLETED DATE/TIME: 01/26/2017 1:15 pm REASON FOR STUDY: Pneumonia COMPARISON: 01/23/2017 09/05/2016 EXAM PARAMETERS: NUMBER OF VIEWS: two views TECHNIQUE: Digital Frontal and Lateral radiographic views of the chest acquired. RADIATION DOSE: NA LIMITATIONS: none FINDINGS: LUNGS AND PLEURA: There is reduced volume in the left lung. There appears to be a pleural effusion. There is considerable opacification in the left base. The right lung is clear. The left hemidiaphragm is elevated. MEDIASTINUM AND HILAR STRUCTURES: No masses or contour abnormalities. HEART AND VASCULAR STRUCTURES: Heart normal size. No evidence for failure. BONES: No acute findings. HARDWARE: PICC line with the tip in the superior vena cava. OTHER: No other significant finding. IMPRESSION: Reduced volume in the left lung with left pleural effusion and apparent airspace disease in the left lower lobe. There appears to be improvement since January 23. TECHNICAL DOCUMENTATION: JOB ID: [id number] [employer]- All Rights Reserved
[2017-01-26] MEDS ORDERED: NORMAL SALINE 10 ML SDV (AFTER EACH USE) IV PRN (14:57)
--- NOTE | 2017-01-26 14:59 | RADIOLOGY REPORT (SQ) ---
EXAM DESCRIPTION: FLUORO/CV PLACEMENT COMPLETE DATE/TIME: 01/26/2017 1:15 pm REASON FOR STUDY: IV ABX FINDINGS: Please see combined report for performance of procedure and radiologic supervision and int erpretation. IMPRESSION: Please see combined report for performance of procedure and radiologic supervision and i nterpretation.
--- NOTE | 2017-01-26 14:59 | RADIOLOGY REPORT (SQ) ---
EXAM DESCRIPTION: U/S GUIDE FOR VASCULAR ACCESS COMPLETE DATE/TIME: 01/26/2017 1:15 pm REASON FOR STUDY: IV ABX FINDINGS: Please see combined report for performance of procedure and radiologic supervision and int erpretation. IMPRESSION: Please see combined report for performance of procedure and radiologic supervision and i nterpretation.
--- NOTE | 2017-01-26 14:59 | RADIOLOGY REPORT (SQ) ---
EXAM DESCRIPTION: PICC INSERTION COMPLETED DATE/TIME: 01/26/2017 1:15 pm REASON FOR STUDY: iv antiboitics COMPARISON: None. FLUOROSCOPY TIME: 1.1 minutes 1 images saved to PACS. TECHNIQUE: Fluoroscopic and ultrasound guided PICC placement. LIMITATIONS: None. PROCEDURE: After written consent and assessment were obtained, the patient was brought into the fluo roscopy room and place supine on the table. Ultrasound was used on the patient's left arm for PICC a ccess. The left arm was prepped and draped in a sterile fashion along with the ultrasound probe. The entry site was anesthetized with 1% lidocaine. A 21 gauge 7 cm needle was advanced through the skin a nd into the cephalic vein under live ultrasound guidance. An ultrasound image was saved to PACS conf [facility] access site. A .018 guide wire was then inserted through the needle and into the venous syste m. The needle was the removed and an 11 blade scalpel was used to make a 1cm skin incision. A 5 fr p eel-away sheath was advanced over the wire and into the venous system. A measurement was then made us ing the existing wire and live fluoroscopic guidance. The wire was then removed and the trimmed. The PICC was advanced through the peel-away sheath and into the venous system. The peel-away sheath was r emoved and the catheter was adhered to the patients arm with a stat lock. The catheter was then aspir ated and flushed and a sterile bandage was placed over the access site. A fluoroscopic spot image wa s saved to PACS confirming the catheter tip within the superior vena cava. IMPRESSION: SUCCESSFUL PLACEMENT OF A 5 FR dual LUMEN 40 CM PICC IN THE cephalic VEIN. COMMENT: Patient medication list reviewed: Yes. Quality ID 145: Final reports for procedures using fluoroscopy that document radiation exposure trent julianne, or exposure time and number of fluorographic images (if radiation exposure indices are not avail able) Quality ID #76: The patient was prepped and draped using maximum sterile barrier technique including cap, mask, sterile gown, sterile gloves, a large sterile sheet, hand hygiene, and 2% Chlorhexidine fo r cutaneous antisepsis. When ultrasound is used, sterile ultrasound techniques are followed requiring sterile gel and sterile probes. TECHNICAL DOCUMENTATION: JOB ID: [id number]- All Rights Reserved
[2017-01-26] MEDS: FINASTERIDE 5 MG TABLET PO SCH (21:29)
[2017-01-26] MEDS: NORMAL SALINE 10 ML SDV (SCHEDULED) IV SCH (21:30)
[2017-01-27] MEDS: DEXAMETHASONE 4 MG TABLET PO SCH ×2 (05:10→12:15)
[2017-01-27] MEDS: OXYCODONE HCL SR 10 MG TABLET PO SCH ×3 (05:10→11:57)
[2017-01-27] MEDS: LANSOPRAZOLE 15 MG TAB.RAP.DR PO SCH (05:11)
[2017-01-27 07:50] LABS: HEMATOCRIT 31.8 % (37.9-51.0); HEMOGLOBIN 10.9 g/dL (13.5-17.0); HGB HCT DIFFERENCE 0.9; MEAN CORPUSCULAR HEMOGLOBIN 32.7 pg (27.0-33.4); MEAN CORPUSCULAR HGB CONC 34.4 g/dL (32.0-36.0); MEAN CORPUSCULAR VOLUME 95 fl (80-97); RED BLOOD COUNT 3.34 10^6/uL (4.35-5.55); WHITE BLOOD COUNT 6.2 10^3/uL (4.0-10.5)
[2017-01-27 08:01] LABS: ANION GAP 11 (5-19); BLOOD UREA NITROGEN 45 mg/dL (7-20); CALCIUM 9.1 mg/dL (8.4-10.2); CARBON DIOXIDE 24 mmol/L (22-30); CHLORIDE 98 mmol/L (98-107); CREATININE RESULT 1.13 mg/dL (0.52-1.25); GLUCOSE 362 mg/dL (75-110); POTASSIUM 5.2 mmol/L (3.6-5.0)
[2017-01-27] MEDS: INSULIN GLARGINE,HUM.REC.ANLOG 300 UNIT/3 ML INSULN.PEN SUBCUT SCH (08:08)
[2017-01-27 08:10] LABS: BASOPHILS % (MANUAL) 0 % (0-2); EOSINOPHILS % (MANUAL) 0 % (0-6); LYMPHOCYTES % (MANUAL) 1 % (13-45); TOTAL CELLS COUNTED 100
[2017-01-27 08:11] LABS: ANISOCYTOSIS SLIGHT
[2017-01-27 08:12] LABS: TOXIC GRANULATION 2+
[2017-01-27] MEDS: INSULIN LISPRO 100 UNIT/ML 3 ML VIAL SUBCUT SCH ×2 (08:15→12:13)
[2017-01-27] MEDS: INSULIN LISPRO 100 UNIT/ML 3 ML VIAL SUBCUT PRN ×2 (08:15→12:14)
[2017-01-27] MEDS: LEVALBUTEROL HCL NEB 1.25 MG/3 ML AMPUL NEB SCH (08:49)
[2017-01-27] MEDS: DOCUSATE SODIUM 100 MG CAPSULE PO SCH (09:35)
[2017-01-27] MEDS: ASPIRIN 81 MG TABLET, ENT COATED PO SCH (09:35)
[2017-01-27] MEDS: LEVOFLOXACIN 500 MG TABLET PO SCH (09:35)
[2017-01-27] MEDS: TAMSULOSIN HCL 0.4 MG CAP.SR.24H PO SCH (09:36)
[2017-01-27] MEDS: GABAPENTIN 300 MG CAPSULE PO SCH (09:36)
[2017-01-27] MEDS: MAGNESIUM OXIDE 400 MG TABLET PO SCH (09:36)
[2017-01-27] MEDS: ATORVASTATIN CALCIUM 20 MG TABLET PO SCH (09:36)
[2017-01-27] MEDS: CLOPIDOGREL BISULFATE 75 MG TABLET PO SCH (09:36)
[2017-01-27] MEDS: LORATADINE 10 MG TABLET PO SCH (09:37)
[2017-01-27] MEDS: CHOLECALCIFEROL (D3) 1,000 UNIT TABLET PO SCH (09:37)
[2017-01-27] MEDS: METOPROLOL SUCCINATE 25 MG TAB.SR.24H PO SCH (09:37)
[2017-01-27] MEDS: CEFEPIME 1 GM/D5W RTU 1 GM/50 ML RTUPB IV SCH (09:38)
[2017-01-27] MEDS: NORMAL SALINE 10 ML SDV (SCHEDULED) IV SCH (09:38)
[2017-01-27 11:54] VITALS: BP 94/62
--- NOTE | 2017-01-27 12:40 | PDOC DISCHARGE SUMMARY ---
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 Is this a current diagnosis for this admission?: Yes Summary: Continues to current medicationsAnd follow with oncology (3) Type 2 diabetes mellitus Is this a current diagnosis for this admission?: Yes Summary: Due to the dexamethasone patient's blood sugar is running high increase the Lantus 40 units at night and 15 units in the morning and also 12 units of Humalog before each meal and sliding scale Discussed with the patient and the and his son to continues close monitor the blood sugar and if is still running about 300 call backI hope the patient's dexamethasone is continues to be a tapering down and should be coming down (4) Hypertension Is this a current diagnosis for this admission?: Yes Summary: Continues to current medications (5) Chronic obstructive pulmonary disease Is this a current diagnosis for this admission?: Yes Summary: Continues a nebulizer treatment (6) Hyperlipidemia Is this a current diagnosis for this admission?: Yes Summary: Continues to statin (7) Weight loss Is this a current diagnosis for this admission?: Yes Summary: Due to the stage IV lung cancer (8) Leukocytosis Is this a current diagnosis for this admission?: Yes Summary: Most likely from the pneumonia (9) Coronary artery disease Is this a current diagnosis for this admission?: Yes Summary: Follow with the Dr. Plunkett as outpatient (10) Atrial fibrillation Is this a current diagnosis for this admission?: Yes Summary: Continues the beta-parish and continues aspirin and Plavix and not a good candidate for any further anticoagulations due to the brain metastatic disease - Additional Information Resuscitation Status: Full Code Discharge Diet: Diabetic Discharge Activity: Activity As Tolerated Home Medications: Albuterol Sulfate [Albuterol Sulfate 2.5mg/3 mL] 1 vial IH Q8HP PRN 01/23/17 Albuterol Sulfate [Proair HFA] 2 puff IH Q4 PRN 01/23/17 Aspirin [Aspirin EC] 81 mg PO DAILY 01/23/17 Atorvastatin Calcium [Lipitor 20 mg Tablet] 20 mg PO DAILY 01/23/17 Cholecalciferol (Vitamin D3) [Vitamin D3 2000 unit Tablet] 2,000 unit PO DAILY 01/23/17 Clopidogrel Bisulfate [Plavix 75 mg Tablet] 75 mg PO DAILY 01/23/17 Ergocalciferol (Vitamin D2) [Vitamin D2] 50,000 unit PO PALENCIA@1000 01/23/17 Finasteride [Proscar 5 mg Tablet] 5 mg PO QHS 01/23/17 Gabapentin [Neurontin 300 mg Capsule] 600 mg PO Q12 01/23/17 Ipratropium/Albuterol Sulfate [Combivent Inhaler] 1 puff IH Q8 01/23/17 Loratadine [Claritin 10 mg Tablet] 10 mg PO DAILY 01/23/17 Metoprolol Succinate [Toprol Xl 25 mg Tab.sr] 25 mg PO DAILY 01/23/17 Nitroglycerin [Nitrostat 0.4 mg (1/150 Gr) Tabs 25/Bottle] 1 tab SL Q5MP PRN Omeprazole 20 mg PO BID 01/23/17 Tamsulosin HCl [Flomax] 0.4 mg PO DAILY 01/23/17 Cefepime 1 gm/D5w RTU [Maxipime RTU 1 gm/D5w 50 ml Premix Bag] 1 gm IV Q12 #14 rtupb 01/27/17 Dexamethasone [Decadron 4 mg Tablet] 4 mg PO Q6 #120 tablet 01/27/17 Insulin Glargine,Hum.rec.anlog [Lantus Insulin 100 Unit/mL] 12 unit SUBCUT QAM # 1 insuln.pen 01/27/17 Insulin Glargine,Hum.rec.anlog [Lantus Insulin 100 Unit/mL] 40 unit SUBCUT QHS # 1 insuln.pen 01/27/17 Insulin Lispro [Humalog Insulin (Lispro) 100 unit/mL] 14 unit SUBCUT MEALS #1 unit 01/27/17 Levofloxacin [Levaquin 500 mg Tablet] 500 mg PO DAILY #7 tablet 01/27/17 Magnesium Oxide [Mag-Ox 400 mg Tablet] 400 mg PO DAILY #30 tablet 01/27/17 History of Present Illness History of Present Illness: LUCIO ORJO is a 66 year old male This is a 66-year-old male with a history of the squamous cell carcinoma with the brain metastatic lesionWith the status post left lower lobe surgery status post radiation and chemotherapyAnd also CyberKnife therapy and radiation of the brain toWith the currently getting the immunotherapy twice a month to take [address] cycle [address] [facility] [address] EldridgeWith a history of the COPD and a history of the smoking in the past currently getting the steroid treatments. Drug reactions and also from the COPDCame to the emergency department with a complaint was shortness of the breath and wheezing and not feeling well In the emergency department patient's chest x-rays so some left-sided pneumonia with some pleural effusions and patient's white count was elevatedVery extensive discussed with the patient and his to agree and the admitting the hospitals and further workup and agreed to see the local pulmonary and also vacuum drum drier operator and oncologist Dr. Aldana which patient used to see's office Dr. Carlson before Dr. Carlson left Patient's recently lost 20 pounds since last 2 monthsAnd patient was giving the Megace by Dr. Eldridge at [facility] He says recently received the steroid treatments for 3 weeks due to the intermittent reactions and recently give her Medrol Dosepak Patient also scheduled for the PET scan and MRI of the brain tomorrow at [facility] Patient's blood sugar is also not well controlled due to the recent steroidAlso noncompliance with the diet Patient also see a Dr. keen for coronary artery disease and recently have all the test was done for all stable Discussed with the patient and the in emergency departments and will admit the patient's possible postobstructive pneumonia and for further evaluations Hospital Course Hospital Course: This 66-year-old male with a significant history of the squamous cell carcinoma of the lung with a metastatic in the brainWas following the [facility] came to the emergency department because of the complaint of shortness of the breath and not feeling well and patient was diagnosed with a left-sided pneumonia with most likely postobstructiveDue to the lung cancer and is status post surgery in the past Patient underwent for an MRI of the brain with shows the patient having multiple metastatic diseaseWhich is new from the old MRI Dr. Honeycutt consulted and patient was scheduled for the brain radiation and start by Dr. Mo yesterday Patient also developed A. 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 keen Was consulted and patient's Toprol was adjusted Patient is not a candidate for an anticoagulations for the oncologist Patient also seen by the pulmonary DrAlberto Vermaeen Patient also was on a steroid due to the possible pneumonitis and COPD and mixed the patient's blood sugars running up and down and patient's insulin was adjusted and put on a sliding scale Very extensive discussions with the pulmonary and suggest the patient discharged with the IV antibioticAnd home health is all arrange Very extensive discussed with the patient's which were anxious to go home and a PICC line was placed With external discussed with the patient's all family including the and the son regarding the patient's current conditions with the not a good prognosis Also discuss about the check the blood sugars daily while running high and use a sliding scale and if is not coming down is to come back to the hospital and is to call back the MD Patient's otherwise remained stable and with the patient's wish and discussed with the family Physical Exam Vital Signs: Temp Pulse Resp BP Pulse Ox 97.5 F 100 18 94/62 L 97 01/27/17 11:52 01/27/17 11:52 01/27/17 11:52 01/27/17 11:52 01/27/17 11:52 Intake & Output 01/26/17 01/27/17 01/28/17 06:59 06:59 06:59 Intake Total 1820 1632 Output Total 400 Balance 1820 1232 Weight 88.9 kg 87.5 kg General appearance: PRESENT: no acute distress, well-developed, well-nourished Head exam: PRESENT: atraumatic, normocephalic Eye exam: PRESENT: conjunctiva pink, EOMI, PERRLA. ABSENT: scleral icterus Ear exam: PRESENT: normal external ear exam Mouth exam: PRESENT: moist, tongue midline Neck exam: PRESENT: full ROM. ABSENT: carotid bruit, JVD, lymphadenopathy, thyromegaly Respiratory exam: PRESENT: clear to auscultation concetta Cardiovascular exam: PRESENT: RRR. ABSENT: diastolic murmur, rubs, systolic murmur Pulses: PRESENT: normal dorsalis pedis pul, +2 pedal pulses bilateral Vascular exam: PRESENT: normal capillary refill GI/Abdominal exam: PRESENT: normal bowel sounds, soft. ABSENT: distended, guarding, mass, organolmegaly, rebound, tenderness Rectal exam: PRESENT: deferred Musculoskeletal exam: PRESENT: ambulatory Neurological exam: PRESENT: alert, awake, oriented to person, oriented to place , oriented to time, oriented to situation, CN II-XII grossly intact. ABSENT: motor sensory deficit Psychiatric exam: PRESENT: appropriate affect, normal mood. ABSENT: homicidal ideation, suicidal ideation Skin exam: PRESENT: dry, intact, warm. ABSENT: cyanosis, rash Results Laboratory Results: 01/27/17 07:23 01/27/17 07:23 01/27/17 01/27/17 07:23 07:23 WBC 6.2 RBC 3.34 L Hgb 10.9 L Hct 31.8 L MCV 95 MCH 32.7 MCHC 34.4 RDW 15.0 H Plt Count 101 L Seg Neutrophils % Not Reportable Lymphocytes % Not Reportable Monocytes % Not Reportable Eosinophils % Not Reportable Basophils % Not Reportable Absolute Neutrophils Not Reportable Absolute Lymphocytes Not Reportable Absolute Monocytes Not Reportable Absolute Eosinophils Not Reportable Absolute Basophils Not Reportable Sodium 133.0 L Potassium 5.2 H Chloride 98 Carbon Dioxide 24 Anion Gap 11 BUN 45 H Creatinine 1.13 Est GFR ( Amer) > 60 Est GFR (Non-Af Amer) > 60 Glucose 362 H Calcium 9.1 01/23/17 01/23/17 01/23/17 16:16 16:16 22:40 Creatine Kinase < 20 L < 20 L CK-MB (CK-2) 2.06 Troponin I 0.028 NT-Pro-B Natriuret Pep 01/23/17 01/24/17 01/24/17 22:40 04:55 04:55 Creatine Kinase < 20 L CK-MB (CK-2) 2.13 1.88 Troponin I 0.019 0.016 NT-Pro-B Natriuret Pep 01/24/17 04:55 Creatine Kinase CK-MB (CK-2) Troponin I NT-Pro-B Natriuret Pep 1200 H Impressions: Head MRI 01/23/17 00:00 IMPRESSION: Multiple varying size rim enhancing masses are identified in both the cerebral hemispheres as well as both cerebellar hemispheres consistent with metastatic disease. The largest of these is identified in the left frontoparietal region over the convexity. MINIMAL MICROVASCULAR ISCHEMIC CHANGE. Other findings as noted above. EVIDENCE OF ACUTE STROKE: NO. Abdomen/Pelvis CT 01/24/17 00:00 IMPRESSION: No definite CT evidence of metastatic disease to the abdomen or pelvis. No CT findings to explain history of sepsis over the abdomen or pelvis. Chest/Abdomen CTA 01/24/17 09:34 IMPRESSION: 1. There is significantly reduced volume in the left lung because of partial pneumonectomy and pathology described below. 2. Left pleural effusion. 3. Left lower lobe pneumonia versus atelectasis. This could represent post obstructive pneumonia secondary to a left hilar mass. 4. No major pulmonary emboli are seen. Evaluation of smaller pulmonary arteries was limited. Chest X-Ray 01/26/17 00:00 IMPRESSION: Reduced volume in the left lung with left pleural effusion and apparent airspace disease in the left lower lobe. There appears to be improvement since January 23. Guidance Fluoroscopy 01/26/17 00:00 IMPRESSION: Please see combined report for performance of procedure and radiologic supervision and interpretation. Interventional Vascular Procedure 01/26/17 00:00 IMPRESSION: Please see combined report for performance of procedure and radiologic supervision and interpretation. PICC Line Insertion 01/26/17 00:00 IMPRESSION: SUCCESSFUL PLACEMENT OF A 5 FR dual LUMEN 40 CM PICC IN THE cephalic VEIN. Plan Time Spent: Greater than 30 Minutes - Very extensive discussions with the patient and the family go through the all medications set up the home health IV antibiotic and follow with the radiation oncology
--- NOTE | 2017-01-28 14:07 | PDOC PROGRESS REPORT ---
Subjective Progress Note for:: 01/25/17 Subjective:: Aches all over still short of breath Physical Exam Vital Signs: Temp Pulse Resp BP Pulse Ox 97.5 F 100 18 94/62 L 97 01/27/17 11:52 01/27/17 11:52 01/27/17 11:52 01/27/17 11:52 01/27/17 11:52 Intake & Output 01/26/17 01/27/17 01/28/17 06:59 06:59 06:59 Intake Total 1820 1632 Output Total 400 Balance 1820 1232 Weight 88.9 kg 87.5 kg General appearance: PRESENT: no acute distress, cooperative, disheveled, thin, well-developed Head exam: PRESENT: atraumatic, normocephalic Eye exam: PRESENT: conjunctiva pale, EOMI Mouth exam: PRESENT: dry mucosa, neck supple, tongue midline Neck exam: ABSENT: carotid bruit, JVD, lymphadenopathy, thyromegaly Respiratory exam: PRESENT: crackles - Left hemithorax right base, decreased breath sounds, prolonged expiratory phas, rhonchi, symmetrical, unlabored, wheezes. ABSENT: accessory muscle use, clear to auscultation concetta, retraction, stridor, tachypnea Cardiovascular exam: PRESENT: irregular rhythm, +S2 Pulses: PRESENT: normal radial pulses GI/Abdominal exam: PRESENT: normal bowel sounds, soft. ABSENT: distended, guarding, mass, organolmegaly, rebound, tenderness Rectal exam: PRESENT: deferred Extremities exam: PRESENT: +1 edema Neurological exam: PRESENT: alert, awake Psychiatric exam: PRESENT: normal mood Skin exam: PRESENT: dry, pallor, warm Results Laboratory Results: 01/27/17 07:23 01/27/17 07:23 01/27/17 01/27/17 07:23 07:23 WBC 6.2 RBC 3.34 L Hgb 10.9 L Hct 31.8 L MCV 95 MCH 32.7 MCHC 34.4 RDW 15.0 H Plt Count 101 L Seg Neutrophils % Not Reportable Lymphocytes % Not Reportable Monocytes % Not Reportable Eosinophils % Not Reportable Basophils % Not Reportable Absolute Neutrophils Not Reportable Absolute Lymphocytes Not Reportable Absolute Monocytes Not Reportable Absolute Eosinophils Not Reportable Absolute Basophils Not Reportable Sodium 133.0 L Potassium 5.2 H Chloride 98 Carbon Dioxide 24 Anion Gap 11 BUN 45 H Creatinine 1.13 Est GFR ( Amer) > 60 Est GFR (Non-Af Amer) > 60 Glucose 362 H Calcium 9.1 01/23/17 01/23/17 01/23/17 16:16 16:16 22:40 Creatine Kinase < 20 L < 20 L CK-MB (CK-2) 2.06 Troponin I 0.028 NT-Pro-B Natriuret Pep 01/23/17 01/24/17 01/24/17 22:40 04:55 04:55 Creatine Kinase < 20 L CK-MB (CK-2) 2.13 1.88 Troponin I 0.019 0.016 NT-Pro-B Natriuret Pep 01/24/17 04:55 Creatine Kinase CK-MB (CK-2) Troponin I NT-Pro-B Natriuret Pep 1200 H Impressions: Head MRI 01/23/17 00:00 IMPRESSION: Multiple varying size rim enhancing masses are identified in both the cerebral hemispheres as well as both cerebellar hemispheres consistent with metastatic disease. The largest of these is identified in the left frontoparietal region over the convexity. MINIMAL MICROVASCULAR ISCHEMIC CHANGE. Other findings as noted above. EVIDENCE OF ACUTE STROKE: NO. Abdomen/Pelvis CT 01/24/17 00:00 IMPRESSION: No definite CT evidence of metastatic disease to the abdomen or pelvis. No CT findings to explain history of sepsis over the abdomen or pelvis. Chest/Abdomen CTA 01/24/17 09:34 IMPRESSION: 1. There is significantly reduced volume in the left lung because of partial pneumonectomy and pathology described below. 2. Left pleural effusion. 3. Left lower lobe pneumonia versus atelectasis. This could represent post obstructive pneumonia secondary to a left hilar mass. 4. No major pulmonary emboli are seen. Evaluation of smaller pulmonary arteries was limited. Chest X-Ray 01/26/17 00:00 IMPRESSION: Reduced volume in the left lung with left pleural effusion and apparent airspace disease in the left lower lobe. There appears to be improvement since January 23. Guidance Fluoroscopy 01/26/17 00:00 IMPRESSION: Please see combined report for performance of procedure and radiologic supervision and interpretation. Interventional Vascular Procedure 01/26/17 00:00 IMPRESSION: Please see combined report for performance of procedure and radiologic supervision and interpretation. PICC Line Insertion 01/26/17 00:00 IMPRESSION: SUCCESSFUL PLACEMENT OF A 5 FR dual LUMEN 40 CM PICC IN THE cephalic VEIN. 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
--- NOTE | 2017-01-28 14:11 | PDOC PROGRESS REPORT ---
Subjective Progress Note for:: 01/26/17 Subjective:: Aches all over still short of breath Physical Exam Vital Signs: Temp Pulse Resp BP Pulse Ox 97.5 F 100 18 94/62 L 97 01/27/17 11:52 01/27/17 11:52 01/27/17 11:52 01/27/17 11:52 01/27/17 11:52 Intake & Output 01/26/17 01/27/17 01/28/17 06:59 06:59 06:59 Intake Total 1820 1632 Output Total 400 Balance 1820 1232 Weight 88.9 kg 87.5 kg General appearance: PRESENT: no acute distress, cooperative, disheveled, thin, well-developed Head exam: PRESENT: atraumatic, normocephalic Eye exam: PRESENT: conjunctiva pale, EOMI Mouth exam: PRESENT: dry mucosa, neck supple, tongue midline Neck exam: ABSENT: carotid bruit, JVD, lymphadenopathy, thyromegaly Respiratory exam: PRESENT: crackles - Left hemithorax and right base Cardiovascular exam: PRESENT: irregular rhythm Pulses: PRESENT: normal radial pulses GI/Abdominal exam: PRESENT: normal bowel sounds, soft. ABSENT: distended, guarding, mass, organolmegaly, rebound, tenderness Rectal exam: PRESENT: deferred Neurological exam: PRESENT: alert, awake Psychiatric exam: PRESENT: normal mood Skin exam: PRESENT: dry, pallor Results Laboratory Results: 01/27/17 07:23 01/27/17 07:23 01/27/17 01/27/17 07:23 07:23 WBC 6.2 RBC 3.34 L Hgb 10.9 L Hct 31.8 L MCV 95 MCH 32.7 MCHC 34.4 RDW 15.0 H Plt Count 101 L Seg Neutrophils % Not Reportable Lymphocytes % Not Reportable Monocytes % Not Reportable Eosinophils % Not Reportable Basophils % Not Reportable Absolute Neutrophils Not Reportable Absolute Lymphocytes Not Reportable Absolute Monocytes Not Reportable Absolute Eosinophils Not Reportable Absolute Basophils Not Reportable Sodium 133.0 L Potassium 5.2 H Chloride 98 Carbon Dioxide 24 Anion Gap 11 BUN 45 H Creatinine 1.13 Est GFR ( Amer) > 60 Est GFR (Non-Af Amer) > 60 Glucose 362 H Calcium 9.1 01/23/17 01/23/17 01/23/17 16:16 16:16 22:40 Creatine Kinase < 20 L < 20 L CK-MB (CK-2) 2.06 Troponin I 0.028 NT-Pro-B Natriuret Pep 01/23/17 01/24/17 01/24/17 22:40 04:55 04:55 Creatine Kinase < 20 L CK-MB (CK-2) 2.13 1.88 Troponin I 0.019 0.016 NT-Pro-B Natriuret Pep 01/24/17 04:55 Creatine Kinase CK-MB (CK-2) Troponin I NT-Pro-B Natriuret Pep 1200 H Impressions: Head MRI 01/23/17 00:00 IMPRESSION: Multiple varying size rim enhancing masses are identified in both the cerebral hemispheres as well as both cerebellar hemispheres consistent with metastatic disease. The largest of these is identified in the left frontoparietal region over the convexity. MINIMAL MICROVASCULAR ISCHEMIC CHANGE. Other findings as noted above. EVIDENCE OF ACUTE STROKE: NO. Abdomen/Pelvis CT 01/24/17 00:00 IMPRESSION: No definite CT evidence of metastatic disease to the abdomen or pelvis. No CT findings to explain history of sepsis over the abdomen or pelvis. Chest/Abdomen CTA 01/24/17 09:34 IMPRESSION: 1. There is significantly reduced volume in the left lung because of partial pneumonectomy and pathology described below. 2. Left pleural effusion. 3. Left lower lobe pneumonia versus atelectasis. This could represent post obstructive pneumonia secondary to a left hilar mass. 4. No major pulmonary emboli are seen. Evaluation of smaller pulmonary arteries was limited. Chest X-Ray 01/26/17 00:00 IMPRESSION: Reduced volume in the left lung with left pleural effusion and apparent airspace disease in the left lower lobe. There appears to be improvement since January 23. Guidance Fluoroscopy 01/26/17 00:00 IMPRESSION: Please see combined report for performance of procedure and radiologic supervision and interpretation. Interventional Vascular Procedure 01/26/17 00:00 IMPRESSION: Please see combined report for performance of procedure and radiologic supervision and interpretation. PICC Line Insertion 01/26/17 00:00 IMPRESSION: SUCCESSFUL PLACEMENT OF A 5 FR dual LUMEN 40 CM PICC IN THE cephalic VEIN. 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
--- NOTE | 2017-01-28 14:13 | PDOC PROGRESS REPORT ---
Subjective Progress Note for:: 01/27/17 Subjective:: Feeling better waiting to go home Physical Exam Vital Signs: Temp Pulse Resp BP Pulse Ox 97.5 F 100 18 94/62 L 97 01/27/17 11:52 01/27/17 11:52 01/27/17 11:52 01/27/17 11:52 01/27/17 11:52 Intake & Output 01/26/17 01/27/17 01/28/17 06:59 06:59 06:59 Intake Total 1820 1632 Output Total 400 Balance 1820 1232 Weight 88.9 kg 87.5 kg General appearance: PRESENT: no acute distress, cooperative, disheveled, thin, well-developed Head exam: PRESENT: atraumatic, normocephalic Eye exam: PRESENT: conjunctiva pale, EOMI Mouth exam: PRESENT: dry mucosa, neck supple Neck exam: ABSENT: carotid bruit, JVD, lymphadenopathy, thyromegaly Respiratory exam: PRESENT: decreased breath sounds, prolonged expiratory phas, rales - Bilaterally, rhonchi, symmetrical, unlabored, wheezes. ABSENT: accessory muscle use, chest wall tenderness, clear to auscultation concetta, retraction, stridor, tachypnea Cardiovascular exam: PRESENT: irregular rhythm Pulses: PRESENT: normal radial pulses GI/Abdominal exam: PRESENT: normal bowel sounds, soft. ABSENT: distended, guarding, mass, organolmegaly, rebound, tenderness Rectal exam: PRESENT: deferred Musculoskeletal exam: PRESENT: normal inspection Neurological exam: PRESENT: awake Skin exam: PRESENT: dry, pallor Results Laboratory Results: 01/27/17 07:23 01/27/17 07:23 01/27/17 01/27/17 07:23 07:23 WBC 6.2 RBC 3.34 L Hgb 10.9 L Hct 31.8 L MCV 95 MCH 32.7 MCHC 34.4 RDW 15.0 H Plt Count 101 L Seg Neutrophils % Not Reportable Lymphocytes % Not Reportable Monocytes % Not Reportable Eosinophils % Not Reportable Basophils % Not Reportable Absolute Neutrophils Not Reportable Absolute Lymphocytes Not Reportable Absolute Monocytes Not Reportable Absolute Eosinophils Not Reportable Absolute Basophils Not Reportable Sodium 133.0 L Potassium 5.2 H Chloride 98 Carbon Dioxide 24 Anion Gap 11 BUN 45 H Creatinine 1.13 Est GFR ( Amer) > 60 Est GFR (Non-Af Amer) > 60 Glucose 362 H Calcium 9.1 01/23/17 01/23/17 01/23/17 16:16 16:16 22:40 Creatine Kinase < 20 L < 20 L CK-MB (CK-2) 2.06 Troponin I 0.028 NT-Pro-B Natriuret Pep 01/23/17 01/24/17 01/24/17 22:40 04:55 04:55 Creatine Kinase < 20 L CK-MB (CK-2) 2.13 1.88 Troponin I 0.019 0.016 NT-Pro-B Natriuret Pep 01/24/17 04:55 Creatine Kinase CK-MB (CK-2) Troponin I NT-Pro-B Natriuret Pep 1200 H Impressions: Head MRI 01/23/17 00:00 IMPRESSION: Multiple varying size rim enhancing masses are identified in both the cerebral hemispheres as well as both cerebellar hemispheres consistent with metastatic disease. The largest of these is identified in the left frontoparietal region over the convexity. MINIMAL MICROVASCULAR ISCHEMIC CHANGE. Other findings as noted above. EVIDENCE OF ACUTE STROKE: NO. Abdomen/Pelvis CT 01/24/17 00:00 IMPRESSION: No definite CT evidence of metastatic disease to the abdomen or pelvis. No CT findings to explain history of sepsis over the abdomen or pelvis. Chest/Abdomen CTA 01/24/17 09:34 IMPRESSION: 1. There is significantly reduced volume in the left lung because of partial pneumonectomy and pathology described below. 2. Left pleural effusion. 3. Left lower lobe pneumonia versus atelectasis. This could represent post obstructive pneumonia secondary to a left hilar mass. 4. No major pulmonary emboli are seen. Evaluation of smaller pulmonary arteries was limited. Chest X-Ray 01/26/17 00:00 IMPRESSION: Reduced volume in the left lung with left pleural effusion and apparent airspace disease in the left lower lobe. There appears to be improvement since January 23. Guidance Fluoroscopy 01/26/17 00:00 IMPRESSION: Please see combined report for performance of procedure and radiologic supervision and interpretation. Interventional Vascular Procedure 01/26/17 00:00 IMPRESSION: Please see combined report for performance of procedure and radiologic supervision and interpretation. PICC Line Insertion 01/26/17 00:00 IMPRESSION: SUCCESSFUL PLACEMENT OF A 5 FR dual LUMEN 40 CM PICC IN THE cephalic VEIN. 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
== END 2017-01-27 12:26 | disposition home health service (06) | DRG 193 ==
LOC: ER 11:40 → EH 15:29 → UNDOADMIN 15:29 → EH 15:41 → 3N 21:50
PROVIDERS: ADMIT Family Medicine; ATTEND Family Medicine
PROC: 3E0F73Z Introduction of Anti-inflammatory into Respiratory Tract, Via Natural or Artificial Opening (ICD-10-PCS; 2017-01-23)
PROC: 02HV33Z Insertion of Infusion Device into Superior Vena Cava, Percutaneous Approach (ICD-10-PCS; principal; 2017-01-26)
PROC: B518ZZA Fluoroscopy of Superior Vena Cava, Guidance (ICD-10-PCS; 2017-01-26)
PROC: B548ZZA Ultrasonography of Superior Vena Cava, Guidance (ICD-10-PCS; 2017-01-26)
PROC: 3E0234Z Introduction of Serum, Toxoid and Vaccine into Muscle, Percutaneous Approach (ICD-10-PCS; 2017-01-27)
DX: J18.9 Pneumonia, unspecified organism (principal); I26.99 Other pulmonary embolism without acute cor pulmonale; C34.92 Malignant neoplasm of unspecified part of left bronchus or lung; C79.31 Secondary malignant neoplasm of brain; J44.0 Chronic obstructive pulmonary disease with (acute) lower respiratory infection; E11.9 Type 2 diabetes mellitus without complications; I10 Essential (primary) hypertension; J44.9 Chronic obstructive pulmonary disease, unspecified; E78.5 Hyperlipidemia, unspecified; I25.10 Atherosclerotic heart disease of native coronary artery without angina pectoris; I48.91 Unspecified atrial fibrillation; R63.4 Abnormal weight loss; I51.7 Cardiomegaly; E78.00 Pure hypercholesterolemia, unspecified; E83.42 Hypomagnesemia; M19.90 Unspecified osteoarthritis, unspecified site; D64.9 Anemia, unspecified; I34.0 Nonrheumatic mitral (valve) insufficiency; F32.9 Major depressive disorder, single episode, unspecified; R09.02 Hypoxemia; K21.9 Gastro-esophageal reflux disease without esophagitis; Z68.26 Body mass index [BMI] 26.0-26.9, adult; Z23 Encounter for immunization; Z79.82 Long term (current) use of aspirin; Z79.4 Long term (current) use of insulin; Z79.899 Other long term (current) drug therapy; Z92.3 Personal history of irradiation; Z87.891 Personal history of nicotine dependence; Z91.11 Patient's noncompliance with dietary regimen; Z95.5 Presence of coronary angioplasty implant and graft; Z90.2 Acquired absence of lung [part of]; Z82.3 Family history of stroke; Z83.3 Family history of diabetes mellitus; Z82.49 Family history of ischemic heart disease and other diseases of the circulatory system; Z80.9 Family history of malignant neoplasm, unspecified
CPT/HCPCS: 36415; 36569; 70553; 71010; 71020; 71035; 71275; 74177; 76937; 77001; 80048; 80053; 81001; 82550; 82553; 82803; 82962; 83605; 83735; 83880; 84439; 84443; 84481; 84484; 85025; 85610; 87040; 87077; 87086; 87088; 87186; 90686; 93005; 93010; 96361; 96365; 99291; A9577; G8978-GP; G8979-GP; G8980-GP; J0692; J1642; J1815; J1956; J2930; J3490; J7030; J7620

== ENCOUNTER 2017-01-31 20:48 | Inpatient (IN) | payer MEDICARE, OTHER ==
--- NOTE | 2017-01-31 21:42 | ER Document Report ---
ED General - General Chief Complaint: Shortness Of Breath Stated Complaint: LOW BLOOD SUGAR SHORTNESS OF BREATH Time Seen by Provider: 01/31/17 21:21 Notes: Patient says he is here because he is having respiratory problems. He has a history of lung cancer operated on initially in November,, followed by radiation and chemotherapy. He was thought to be cancer free but then experienced a recurrence with metastases to his brain. He has subsequently gone through chemotherapy and is now having radiation treatments to his brain patient was admitted to this hospital Monday for pneumonia and was discharged home on Monday with a PICC line to receive an antibiotic twice a day. While in the hospital, he began radiation treatments and is had 4 of them, last , Monday, yesterday, and today. He has a nebulizer at home to get breathing treatments. Denies much cough or congestion. Seems to be getting worse today. Family is concerned because his blood sugars are fluctuating up into the 200s and higher and as low as 75. Patient is on Lantus twice a day and NovoLog sliding scale. He is not eating well although he says he is hungry. He is also receiving Decadron orally. TRAVEL OUTSIDE OF THE [place] IN LAST 30 DAYS: No - Related Data Allergies/Adverse Reactions: No Known Drug Allergies Allergy (Unknown, Verified 01/23/17 12:54) Past Medical History - Social History Smoking Status: Unknown if Ever Smoked Family History: Reviewed & Not Pertinent, CVA, DM, Hypertension, Malignancy Patient has suicidal ideation: No Patient has homicidal ideation: No - Past Medical History Cardiac Medical History: Reports: Hx Coronary Artery Disease, Hx Hypercholesterolemia, Hx Hypertension Pulmonary Medical History: Reports: Hx COPD Endocrine Medical History: Reports: Hx Diabetes Mellitus Type 2 Renal/ Medical History: Reports: Hx Benign Prostatic Hyperplasia Malignancy Medical History: Reports Hx Lung Cancer - With metastasis to brain GI Medical History: Reports: Hx Gastroesophageal Reflux Disease, Hx Hiatal Hernia Musculoskeltal Medical History: Reports Hx Arthritis Psychiatric Medical History: Reports: Hx Depression Past Surgical History: Reports: Hx Cardiac Catheterization - with 2 stents placed 7-8 years ago, Hx Coronary Stent, Other - Coronary artery stents 2;left upper lobectomy - Immunizations Hx Diphtheria, Pertussis, Tetanus Vaccination: No Review of Systems - Review of Systems Notes: REVIEW OF SYSTEMS: CONSTITUTIONAL : Denies fever. EENT: Denies eye, ear, nose or mouth or throat pain or other symptoms. CARDIOVASCULAR: Denies chest pain. RESPIRATORY: Denies cough, chest congestion, but, feeling sHort of breath over the last day or 2. GASTROINTESTINAL: Denies abdominal pain or nausea, vomiting, or diarrhea. GENITOURINARY: Denies difficulty or painful urinating, urinary frequency, blood in urine. MUSCULOSKELETAL: Denies back or neck pain. Denies joint pain or swelling. SKIN: Denies rash or skin lesions. NEUROLOGICAL: Denies LOC or altered mental status. Denies headache. Denies sensory loss or motor deficits. ALL OTHER SYSTEMS REVIEWED AND NEGATIVE. Physical Exam - Vital signs Vitals: Pulse Resp BP Pulse Ox 62 20 80/54 L 98 01/31/17 20:50 01/31/17 20:50 01/31/17 20:50 01/31/17 20:50 Interpretation: Hypotensive - Blood pressure recorded at triage of 80/54, but immediately upon being placed on monitor in his room, pressures 150 systolic. No corresponding tachycardia, etc. - Notes Notes: PHYSICAL EXAMINATION: GENERAL: Well-appearing, in no acute distress, laying on the stretcher. HEAD: Atraumatic, normocephalic. EYES: Pupils equal round and reactive to light, extraocular movements intact. ENT: oropharynx clear without exudates. Moist mucous membranes. Patient has many ulcerative lesions of the tongue which looks like aphthous stomatitis or some other viral infection etiology. NECK: Normal range of motion, supple. LUNGS: Breath sounds clear and decreased on the left side. HEART: Regular rate and rhythm without murmurs. ABDOMEN: Soft, nontender. No guarding or rebound. BACK: No tenderness throughout entire back. EXTREMITIES: Normal range of motion without pain. NEUROLOGICAL: Normal speech, normal gait. Normal sensory, motor, and reflex exams. Awake, alert, and oriented x3. Cranial nerves normal. SKIN: Warm, dry, no rashes. Course - Re-evaluation Re-evalutation: 02/01/17 00:03 I went over the results of the lab studies on this patient and his chest x-ray results with the family. Covered the issue of fluctuating and especially low blood sugars. Looked at a very small pressure sore developing in the sacrum area. It is clean and not infected but advised positioning patient so that he is not creating pressure over the sore. At that point, patient's family told me their major concern was the patient's change in behavior from yesterday. They say he was much more alert and active and up and around yesterday but not so today. I am going to get a CT scan of his brain. 02/01/17 01:[address] Clement regarding patient's low sodium as well as altered mental status and recommended patient be observed tonight and received some saline IV and he is agreeable to that plan. - Vital Signs Vital signs: Temp Pulse Resp BP Pulse Ox 62 22 H 113/84 97 01/31/17 20:50 01/31/17 23:41 01/31/17 23:41 01/31/17 23:41 - Laboratory Result Diagrams: 01/31/17 22:50 01/31/17 22:50 Laboratory results interpreted by me: 01/31/17 01/31/17 01/31/17 22:50 22:50 23:42 RBC 3.82 L Hgb 12.5 L Hct 36.1 L RDW 14.9 H Plt Count 112 L Seg Neuts % (Manual) 94 H Lymphocytes % (Manual) 1 L Abs Neuts (Manual) 9.2 H Abs Lymphs (Manual) 0.1 L Sodium 129.9 L BUN 44 H POC Glucose 118 H Calcium 8.1 L Direct Bilirubin 0.5 H Total Protein 5.6 L Albumin 2.8 L - Diagnostic Test Radiology reviewed: Image reviewed, Reports reviewed - CT scan is unchanged from previous study. There is no evidence of increased intracranial pressure. Radiology results interpreted by me: 02/01/17 01:08 Chest x-ray shows changes consistent with the patient's known cancer. The study tonight is stable compared to previous studies a week ago. 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
--- NOTE | 2017-01-31 22:21 | RADIOLOGY REPORT (SQ) ---
EXAM DESCRIPTION: CHEST PA/LAT COMPLETED DATE/TIME: 01/31/2017 10:10 pm REASON FOR STUDY: Hx long cancer / brain mets, PN last week SOB COMPARISON: 01/26/2017, 01/23/2017 EXAM PARAMETERS: NUMBER OF VIEWS: two views TECHNIQUE: Digital Frontal and Lateral radiographic views of the chest acquired. RADIATION DOSE: NA LIMITATIONS: none FINDINGS: LUNGS AND PLEURA: Extensive pleuroparenchymal changes in the left lung. Stable from previ ous. MEDIASTINUM AND HILAR STRUCTURES: No masses or contour abnormalities. HEART AND VASCULAR STRUCTURES: Heart normal size. No evidence for failure. BONES: No acute findings. HARDWARE: Venous access catheter unchanged. OTHER: No other significant finding. IMPRESSION: Extensive pleural and parenchymal changes in the left lung which appear to be stable fro m the previous exam. TECHNICAL DOCUMENTATION: JOB ID: [id number] [employer]- All Rights Reserved
[2017-01-31 22:59] LABS: HEMATOCRIT 36.1 % (37.9-51.0); HEMOGLOBIN 12.5 g/dL (13.5-17.0); HGB HCT DIFFERENCE 1.4; MEAN CORPUSCULAR HEMOGLOBIN 32.7 pg (27.0-33.4); MEAN CORPUSCULAR HGB CONC 34.6 g/dL (32.0-36.0); MEAN CORPUSCULAR VOLUME 95 fl (80-97); RED BLOOD COUNT 3.82 10^6/uL (4.35-5.55); RED CELL DISTRIBUTION WIDTH 14.9 % (11.5-14.0); WHITE BLOOD COUNT 9.8 10^3/uL (4.0-10.5)
[2017-01-31 23:14] LABS: ALANINE AMINOTRANSFERASE 65 U/L (21-72); ALBUMIN 2.8 g/dL (3.5-5.0); ALKALINE PHOSPHATASE 77 U/L (38-126); ANION GAP 9 (5-19); ASPARTATE AMINO TRANSFERASE 35 U/L (17-59); BILIRUBIN,DIRECT 0.5 mg/dL (0.0-0.4); BILIRUBIN,TOTAL 0.7 mg/dL (0.2-1.3); BLOOD UREA NITROGEN 44 mg/dL (7-20); CALCIUM 8.1 mg/dL (8.4-10.2); CARBON DIOXIDE 23 mmol/L (22-30); CHLORIDE 98 mmol/L (98-107); CREATININE RESULT 1.18 mg/dL (0.52-1.25); GLUCOSE 93 mg/dL (75-110); POTASSIUM 4.5 mmol/L (3.6-5.0); SODIUM 129.9 mmol/L (137-145); TOTAL PROTEIN 5.6 g/dL (6.3-8.2)
[2017-01-31 23:16] LABS: BASOPHILS % (MANUAL) 0 % (0-2); EOSINOPHILS % (MANUAL) 1 % (0-6); LYMPHOCYTES % (MANUAL) 1 % (13-45); TOTAL CELLS COUNTED 100
[2017-01-31 23:17] LABS: RBC MORPHOLOGY COMMENT NORMO-CYTIC/CHROMIC; TOXIC GRANULATION SLIGHT
--- NOTE | 2017-02-01 00:35 | RADIOLOGY REPORT (SQ) ---
EXAM DESCRIPTION: CT HEAD WITHOUT COMPLETED DATE/TIME: 02/01/2017 12:11 am REASON FOR STUDY: Hx lung cancer with brain metastases COMPARISON: MRI of the brain dated 01/23/2017 TECHNIQUE: Axial images acquired through the brain without intravenous contrast. Images reviewed wi th bone, brain and subdural windows. Images stored on PACS. All CT scanners at this facility use dose modulation, iterative reconstruction, and/or weight based d osing when appropriate to reduce radiation dose to as low as reasonably achievable (ALARA). [facility]: Dose Right [facility]: CareDose [facility]: Dose Right [facility]: Teradose 4D [facility]: [employer] RADIATION DOSE: Up-to-date CT equipment and radiation dose reduction techniques were employed. CTDIv ol: 64.6 mGy. DLP: 1163 mGy-cm.mGy. LIMITATIONS: None. FINDINGS: VENTRICLES: Prominent. CEREBRUM: The previously described metastatic lesion in the left parietal region is identified and ap pears unchanged. The smaller metastatic lesions identified on the previous MRI are difficult to visu tracie on the basis of the non contrasted CT scan. No hemorrhage. No midline shift. Areas of low de nsity in the white matter most likely due to chronic micro-vascular ischemic change. No evidence for acute infarction. CEREBELLUM: No masses. No hemorrhage. No alteration of density. No evidence for acute infarction. EXTRAAXIAL SPACES: Age-related involutional change. No fluid collections. No masses. ORBITS AND GLOBE: No intra- or extraconal masses. Normal contour of globe without masses. CALVARIUM: Lytic lesion is identified in the occipital region just to the right of midline. The appe arance is suspicious for metastatic disease. PARANASAL SINUSES: No fluid or mucosal thickening. SOFT TISSUES: No mass or hematoma. OTHER: No other significant finding. IMPRESSION: CHRONIC CHANGES OF ATROPHY AND MICROVASCULAR ISCHEMIA. Metastatic disease as noted abov e. Lytic lesion in the occipital region of the bony calvaria to the right of midline. Other finding s as noted above EVIDENCE OF ACUTE STROKE: NO. TECHNICAL DOCUMENTATION: JOB ID: [id number] Quality ID # [id number]: Final reports with documentation of one or more dose reduction techniques (e.g., Au tomated exposure control, adjustment of the mA and/or kV according to patient size, use of iterative reconstruction technique) 2010 [employer]- All Rights Reserved
[2017-02-01] MEDS ORDERED: NORMAL SALINE 1000 ML 1,000 ML IV ONE (01:06)
[2017-02-01] MEDS ORDERED: ACETAMINOPHEN 325 MG TABLET PO PRN (01:12)
[2017-02-01] MEDS ORDERED: DEXTROSE 40% GEL 15 GM TUBE PO PRN ×2 (01:17)
[2017-02-01] MEDS ORDERED: GLUCAGON,HUMAN RECOMB 1 MG INJ IM PRN (01:17)
[2017-02-01] MEDS ORDERED: DEXTROSE 50%-WATER 25 GM/50 ML DISP.SYRIN IV PRN ×2 (01:17)
[2017-02-01] MEDS ORDERED: OXYCODONE HCL IR 5 MG TABLET PO ONE ×2 (01:28→08:30)
[2017-02-01] MEDS ORDERED: CEFEPIME 1 GM/D5W RTU 1 GM/50 ML RTUPB IV ONE (01:30)
[2017-02-01] MEDS: LEVALBUTEROL HCL NEB 0.63 MG/3 ML AMPUL NEB SCH ×4 (04:24→19:49)
[2017-02-01] MEDS ORDERED: HEPARIN SOD (PORCINE) 5,000 UNIT/ML 1 ML SYRINGE SUBCUT SCH (06:00)
--- NOTE | 2017-02-01 08:22 | PDOC CONSULTATION ---
Consultation Consult Date: 02/01/17 Attending physician:: TESSY CLEMENT Consult reason:: Stage IV lung CA, brain metastasis, confusion, hyperglycemia, hyponatremia History of Present Illness Admission Date/PCP: 02/01/17 01:12 TESSY CLEMENT MD Patient complains of: Stage IV lung CA, brain metastasis, confusion, hyperglycemia, hyponatremia History of Present Illness: LUCIO ROJO is a 66 year old male well-known to our oncology service, we have been following him for some time with known history of stage IV lung cancer, recently presented to [facility] with postobstructive pneumonia, was found to have increased hilar density in the left side, with obstructive changes secondary to progression of disease in the lung, but patient also with imaging indicating new brain metastasis, multiple, started on whole brain radiation, has had 4 of 10 doses thus far, came yesterday with hyperglycemia, hyponatremia, increasing confusion, and discussion with the they were also confused at home on how much insulin to give what to do with the changing blood sugars, the patient has been on a dexamethasone taper because of the brain metastasis and that has been causing multiple changes in blood sugars. Today, with a long conversation about patient prognosis as well as next steps of care, we discussed CODE STATUS with the patient, and patient decided on DNR at present. Past Medical History Cardiac Medical History: Reports: Coronary Artery Disease, Hyperlipidema, Hypertension Pulmonary Medical History: Reports: Chronic Obstructive Pulmonary Disease (COPD) Endocrine Medical History: Reports: Diabetes Mellitus Type 2 Malignancy Medical History: Reports: Lung Cancer - With metastasis to brain GI Medical History: Reports: Gastroesophageal Reflux Disease, Hiatal Hernia Musculoskeltal Medical History: Reports: Arthritis Psychiatric Medical History: Reports: Depression Hematology: Reports: Anemia Past Surgical History Past Surgical History: Reports: Cardiac Catheterization - with 2 stents placed 7 -8 years ago, Coronary Stent, Other - Coronary artery stents 2;left upper lobectomy Social History Smoking Status: Unknown if Ever Smoked Frequency of Alcohol Use: None Hx Recreational Drug Use: No Drugs: None Hx Prescription Drug Abuse: No - Advance Directive Resuscitation Status: Do Not Resuscitate Family History Family History: Reviewed & Not Pertinent, CVA, DM, Hypertension, Malignancy Parental Family History Reviewed: Yes Children Family History Reviewed: Yes Sibling(s) Family History Reviewed.: Yes Medication/Allergy Allergies/Adverse Reactions: No Known Drug Allergies Allergy (Unknown, Verified 01/23/17 12:54) Review of Systems Constitutional: ABSENT: chills, fever(s), headache(s), weight gain, weight loss Eyes: ABSENT: visual disturbances Ears: ABSENT: hearing changes Cardiovascular: ABSENT: chest pain, dyspnea on exertion, edema, orthropnea, palpitations Respiratory: ABSENT: cough, hemoptysis Gastrointestinal: ABSENT: abdominal pain, constipation, diarrhea, hematemesis, hematochezia, nausea, vomiting Genitourinary: ABSENT: dysuria, hematuria Musculoskeletal: ABSENT: joint swelling Integumentary: ABSENT: rash, wounds Neurological: ABSENT: abnormal gait, abnormal speech, confusion, dizziness, focal weakness, syncope Psychiatric: ABSENT: anxiety, depression, homidical ideation, suicidal ideation Endocrine: ABSENT: cold intolerance, heat intolerance, polydipsia, polyuria Hematologic/Lymphatic: ABSENT: easy bleeding, easy bruising Physical Exam Vital Signs: Temp Pulse Resp BP Pulse Ox 98.8 F 94 13 117/79 97 02/01/17 04:00 02/01/17 07:00 02/01/17 03:21 02/01/17 04:00 02/01/17 04:00 Intake & Output 01/31/17 02/01/17 02/02/17 06:59 06:59 06:59 Intake Total 325 Balance 325 Weight 85.1 kg General appearance: PRESENT: no acute distress, well-developed, well-nourished Head exam: PRESENT: atraumatic, normocephalic Eye exam: PRESENT: conjunctiva pink, EOMI, PERRLA. ABSENT: scleral icterus Ear exam: PRESENT: normal external ear exam Mouth exam: PRESENT: moist, tongue midline Neck exam: ABSENT: carotid bruit, JVD, lymphadenopathy, thyromegaly Respiratory exam: PRESENT: clear to auscultation concetta. ABSENT: rales, rhonchi, wheezes Cardiovascular exam: PRESENT: RRR. ABSENT: diastolic murmur, rubs, systolic murmur Pulses: PRESENT: normal dorsalis pedis pul Vascular exam: PRESENT: normal capillary refill GI/Abdominal exam: PRESENT: normal bowel sounds, soft. ABSENT: distended, guarding, mass, organolmegaly, rebound, tenderness Rectal exam: PRESENT: deferred Extremities exam: PRESENT: full ROM. ABSENT: calf tenderness, clubbing, pedal edema Neurological exam: PRESENT: alert, awake, oriented to person, oriented to place , oriented to time, oriented to situation, CN II-XII grossly intact. ABSENT: motor sensory deficit Psychiatric exam: PRESENT: appropriate affect, normal mood. ABSENT: homicidal ideation, suicidal ideation Skin exam: PRESENT: dry, intact, warm. ABSENT: cyanosis, rash Results Impressions: Chest X-Ray 01/31/17 21:36 IMPRESSION: Extensive pleural and parenchymal changes in the left lung which appear to be stable from the previous exam. Head CT 01/31/17 23:56 IMPRESSION: CHRONIC CHANGES OF ATROPHY AND MICROVASCULAR ISCHEMIA. Metastatic disease as noted above. Lytic lesion in the occipital region of the bony calvaria to the right of midline. Other findings as noted above EVIDENCE OF ACUTE STROKE: NO. 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 We discussed next steps of care at length today, we spent about 70 minutes in discussion, He understands the risks and benefits. (2) Pain, neoplasm-related Is this a current diagnosis for this admission?: Yes Plan: Patient does have pain related to the cancer, I will start him on oxycodone, this has been controlling his pain appropriately at home - Time Time Spent: Greater than 70 Minutes Critical Time spent with patient: 35 or more minutes - Inpatient Certification Based on my medical assessment, after consideration of the patient's comorbidities, presenting symptoms, or acuity I expect that the services needed warrant INPATIENT care.: Yes I certify that my determination is in accordance with my understanding of Medicare's requirements for reasonable and necessary INPATIENT services [42 CFR 412.3e].: Yes Medical Necessity: Need For IV Fluids, Need For Continuous Telemetry Monitoring , Risk of Complication if Not Cared For in Hospital
[2017-02-01 09:00] LABS: APPEARANCE,URINE CLEAR; BILIRUBIN,URINE NEGATIVE (NEGATIVE); GLUCOSE, URINE NEGATIVE (NEGATIVE); KETONES,URINE NEGATIVE (NEGATIVE); LEUKOCYTE ESTERASE,URINE TRACE (NEGATIVE); NITRITE,URINE NEGATIVE (NEGATIVE); PROTEIN,URINE NEGATIVE (NEGATIVE); URINE SPECIFIC GRAVITY 1.014; UROBILINOGEN,URINE NEGATIVE mg/dL (<2.0)
[2017-02-01] MEDS: FAMOTIDINE INJ/PF 20 MG/2 ML SDV IV SCH ×2 (10:32→21:08)
[2017-02-01] MEDS: CEFEPIME 1 GM/D5W RTU 1 GM/50 ML RTUPB IV SCH ×2 (10:33→21:08)
[2017-02-01] MEDS: INSULIN LISPRO 100 UNIT/ML 3 ML VIAL SUBCUT PRN ×2 (12:36→17:23)
[2017-02-01] MEDS ORDERED: FLUCONAZOLE 100 MG TABLET PO ONE (14:00)
[2017-02-01] MEDS: OXYCODONE HCL IR 5 MG TABLET PO PRN ×2 (14:44→20:50)
[2017-02-01] MEDS ORDERED: NYSTATIN/DEXAMETH/DIPHEN SUSP 120 ML PO ONE (15:00)
--- NOTE | 2017-02-01 15:59 | PDOC H&P ---
History of Present Illness Admission Date/PCP: 02/01/17 01:12 TESSY CLEMENT MD Patient complains of: Altered mental status History of Present Illness: LUCIO ROJO is a 66 year old male history of stage IV lung cancer, recently presented to the [facility] with postobstructive pneumonia, was found to have increased hilar density in the left side, with obstructive changes secondary to progression of disease in the lung, but patient also with imaging indicating new brain metastasis, multiple, started on whole brain radiation, has had 4 of 10 doses thus far, came yesterday with hyperglycemia, hyponatremia, increasing confusion, and discussion with the they were also confused at home on how much insulin to give what to do with the changing blood sugars, the patient has been on a dexamethasone taper because of the brain metastasis and that has been causing multiple changes in blood sugars. Today, with a long conversation about patient prognosis as well as next steps of care, we discussed CODE STATUS with the patient, and patient decided on DNR at present. Past Medical History Cardiac Medical History: Reports: Coronary Artery Disease, Hyperlipidema, Hypertension Pulmonary Medical History: Reports: Chronic Obstructive Pulmonary Disease (COPD) Endocrine Medical History: Reports: Diabetes Mellitus Type 2 Malignancy Medical History: Reports: Lung Cancer - With metastasis to brain GI Medical History: Reports: Gastroesophageal Reflux Disease, Hiatal Hernia Musculoskeltal Medical History: Reports: Arthritis Psychiatric Medical History: Reports: Depression Hematology: Reports: Anemia Past Surgical History Past Surgical History: Reports: Cardiac Catheterization - with 2 stents placed 7 -8 years ago, Coronary Stent, Other - Coronary artery stents 2;left upper lobectomy Social History Smoking Status: Unknown if Ever Smoked Frequency of Alcohol Use: None Hx Recreational Drug Use: No Drugs: None Hx Prescription Drug Abuse: No - Advance Directive Resuscitation Status: Do Not Resuscitate Family History Family History: Reviewed & Not Pertinent, CVA, DM, Hypertension, Malignancy Parental Family History Reviewed: Yes Children Family History Reviewed: Yes Sibling(s) Family History Reviewed.: Yes Medication/Allergy Home Medications: Albuterol Sulfate [Albuterol Sulfate 2.5mg/3 mL] 3 ml NEB RTQ8HP PRN 02/01/17 Albuterol Sulfate [Proair HFA] 2 puff IH Q4HP PRN 02/01/17 Aspirin [Aspirin EC] 81 mg PO DAILY 02/01/17 Atorvastatin Calcium [Lipitor 20 mg Tablet] 20 mg PO DAILY 02/01/17 Cholecalciferol (Vitamin D3) [Vitamin D3 2000 unit Tablet] 2,000 unit PO DAILY 02/01/17 Clopidogrel Bisulfate [Plavix 75 mg Tablet] 75 mg PO DAILY 02/01/17 Dexamethasone [Decadron 4 mg Tablet] 4 mg PO DAILY 02/01/17 Ergocalciferol (Vitamin D2) [Vitamin D2] 50,000 unit PO PALENCIA@1000 02/01/17 Finasteride [Proscar 5 mg Tablet] 5 mg PO QHS 02/01/17 Gabapentin [Neurontin 300 mg Capsule] 600 mg PO Q12 02/01/17 Insulin Glargine,Hum.rec.anlog [Lantus Solostar] 0 units SQ .PERSLIDINGSCALE 04/19 Ipratropium/Albuterol Sulfate [Combivent Inhaler] 1 puff IH Q8 02/01/17 Loratadine [Claritin 10 mg Tablet] 10 mg PO DAILY 02/01/17 Metoprolol Succinate [Toprol Xl 25 mg Tab.sr] 25 mg PO DAILY 02/01/17 Nitroglycerin [Nitrostat 0.4 mg (1/150 Gr) Tabs 25/Bottle] 0.4 mg PO Q5MP PRN Omeprazole 20 mg PO BID 02/01/17 Tamsulosin HCl [Flomax 0.4 mg Cap.sr] 0.4 mg PO DAILY 02/01/17 Allergies/Adverse Reactions: No Known Drug Allergies Allergy (Unknown, Verified 01/23/17 12:54) Review of Systems Constitutional: PRESENT: fatigue, weakness. ABSENT: chills, fever(s), headache( s), weight gain, weight loss Eyes: ABSENT: visual disturbances Ears: ABSENT: hearing changes Nose, Mouth, and Throat: PRESENT: sore throat Cardiovascular: ABSENT: chest pain, dyspnea on exertion, edema, orthropnea, palpitations Respiratory: ABSENT: cough, hemoptysis Gastrointestinal: ABSENT: abdominal pain, constipation, diarrhea, hematemesis, hematochezia, nausea, vomiting Genitourinary: ABSENT: dysuria, hematuria Musculoskeletal: ABSENT: joint swelling Integumentary: ABSENT: rash, wounds Neurological: PRESENT: confusion. ABSENT: abnormal gait, abnormal speech, dizziness, focal weakness, syncope Psychiatric: PRESENT: depression. ABSENT: anxiety, homidical ideation, suicidal ideation Endocrine: ABSENT: cold intolerance, heat intolerance, menstrual abnormalities, polydipsia, polyuria Hematologic/Lymphatic: ABSENT: easy bleeding, easy bruising, lymphadenopathy Physical Exam Vital Signs: Temp Pulse Resp BP Pulse Ox 99.0 F 109 H 18 107/62 98 02/01/17 11:56 02/01/17 15:00 02/01/17 13:30 02/01/17 11:56 02/01/17 13:30 Intake & Output 01/31/17 02/01/17 02/02/17 06:59 06:59 06:59 Intake Total 325 540 Output Total 350 Balance 325 190 Weight 85.1 kg General appearance: PRESENT: no acute distress, well-developed, well-nourished Head exam: PRESENT: atraumatic, normocephalic Eye exam: PRESENT: conjunctiva pink, EOMI, PERRLA. ABSENT: scleral icterus Ear exam: PRESENT: normal external ear exam Mouth exam: PRESENT: moist, tongue midline Neck exam: PRESENT: full ROM. ABSENT: carotid bruit, JVD, lymphadenopathy, thyromegaly Respiratory exam: PRESENT: clear to auscultation concetta Cardiovascular exam: PRESENT: RRR. ABSENT: diastolic murmur, rubs, systolic murmur Pulses: PRESENT: normal dorsalis pedis pul, +2 pedal pulses bilateral Vascular exam: PRESENT: normal capillary refill GI/Abdominal exam: PRESENT: normal bowel sounds, soft. ABSENT: distended, guarding, mass, organolmegaly, rebound, tenderness Rectal exam: PRESENT: deferred Extremities exam: ABSENT: full ROM, left AKA, right AKA, left BKA, right BKA, calf tenderness, joint swelling, pedal edema, tenderness, other Musculoskeletal exam: PRESENT: ambulatory Neurological exam: PRESENT: alert, awake, oriented to person, oriented to place , oriented to time, oriented to situation, CN II-XII grossly intact. ABSENT: motor sensory deficit Psychiatric exam: PRESENT: appropriate affect, normal mood. ABSENT: homicidal ideation, suicidal ideation Skin exam: PRESENT: dry, intact, warm. ABSENT: cyanosis, rash Additional comments: Stage I decubitus ulcers is present Results Laboratory Results: 02/01/17 07:45 Urine Color YELLOW Urine Appearance CLEAR Urine pH 5.0 Ur Specific [place] 1.014 Urine Protein NEGATIVE Urine Glucose (UA) NEGATIVE Urine Ketones NEGATIVE Urine Blood MODERATE H Urine Nitrite NEGATIVE Ur Leukocyte Esterase TRACE H Urine WBC (Auto) 3 Urine RBC (Auto) 2 Impressions: Chest X-Ray 01/31/17 21:36 IMPRESSION: Extensive pleural and parenchymal changes in the left lung which appear to be stable from the previous exam. Head CT 01/31/17 23:56 IMPRESSION: CHRONIC CHANGES OF ATROPHY AND MICROVASCULAR ISCHEMIA. Metastatic disease as noted above. Lytic lesion in the occipital region of the bony calvaria to the right of midline. Other findings as noted above EVIDENCE OF ACUTE STROKE: NO. Assessment & Plan - Diagnosis (1) Altered mental status Qualifiers: Altered mental status type: unspecified Qualified Code(s): R41.82 - Altered mental status, unspecified Is this a current diagnosis for this admission?: Yes Plan: Patient have a CT head was negative for any acute finding except with ongoing metastatic disease Will rule out any infectious process Most likely related to the according to the not the patient with the family little confused about the insulin (2) Stage I decubitus ulcer and pressure area Qualifiers: Laterality: unspecified laterality Is this a current diagnosis for this admission?: Yes Plan: Discussed with the patient about the change the positions very frequently set up with the wound care before the discharge (3) Hyponatremia Is this a current diagnosis for this admission?: Yes Plan: With the radiation of the brain and a stage IV lung cancersWe will start the patient on some IV fluid and correct the sodium (4) 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 Is this a current diagnosis for this admission?: Yes Plan: Follow with the oncology again very extensive discussed with the patient's and the son with oncology about the patient's current conditions with the poor prognosisIn patients prefer to the DNR/DNI (5) Atrial fibrillation Qualifiers: Atrial fibrillation type: unspecified Qualified Code(s): I48.91 - Unspecified atrial fibrillation Is this a current diagnosis for this admission?: Yes Plan: Continues the beta-parish patient is a not a candidate for anticoagulations to the ongoing brain radiations (6) Chronic obstructive pulmonary disease Qualifiers: COPD type: unspecified COPD Qualified Code(s): J44.9 - Chronic obstructive pulmonary disease, unspecified Is this a current diagnosis for this admission?: Yes Plan: Continues to nebulizer treatments (7) Coronary artery disease Qualifiers: Coronary Disease-Associated Artery/Lesion type: unspecified vessel or lesion type Is this a current diagnosis for this admission?: Yes Plan: Currently all stable (8) Postobstructive pneumonia Is this a current diagnosis for this admission?: Yes Plan: Continues to IV cefepime (9) Type 2 diabetes mellitus Qualifiers: Diabetes mellitus complication status: with unspecified complications Is this a current diagnosis for this admission?: Yes Plan: With the recent dexamethasone's patient's blood sugar is very up-and-down will put the patient on a sliding scale and Lantus at a night times while patient's blood sugar under well control right now but that makes the patient and the family make a very straightforward to control the sugar (10) Weight loss Plan: Due to the recent worsening the metastatic disease - Time Time Spent: 30 to 50 Minutes Medications reviewed and adjusted accordingly: Yes Anticipated discharge: Home Within: Other - Inpatient Certification Medical Necessity: Significant Comorbidiites Make Outpatient Treatment Too Risky , Need For IV Fluids, Need for IV Antibiotics Post Hospital Care: D/C Resume Writer Documentation - Plan Summary Plan Summary: Very extensive discussed with the patient and the and other family member regarding the patient's current conditions with a long-term poor prognosis
[2017-02-01] MEDS ORDERED: ONDANSETRON HCL INJ/PF 4 MG/2 ML SDV ONE (16:15)
[2017-02-01] MEDS ORDERED: ONDANSETRON HCL INJ/PF 4 MG/2 ML SDV IV PRN (16:38)
[2017-02-01] MEDS ORDERED: MAG HYDROX/AL HYDROX/SIMETH SUSP 30 ML UDCUP PO PRN (16:39)
[2017-02-01] MEDS ORDERED: LANSOPRAZOLE 15 MG TAB.RAP.DR PO ONE (17:00)
[2017-02-01] MEDS: NORMAL SALINE 1000 ML 1,000 ML IV PRN (17:49)
[2017-02-01] MEDS: NYSTATIN/DEXAMETH/DIPHEN SUSP 120 ML PO SCH (18:15)
--- NOTE | 2017-02-01 20:57 | PDOC CONSULTATION ---
Consultation Consult Date: 02/01/17 Consult reason:: sacral decubitus ulcers History of Present Illness Admission Date/PCP: 02/01/17 01:12 TESSY CLEMENT MD History of Present Illness: 66-year-old male with history of stage IV lung cancer with brain metastases noted to have sacral decubitus ulcers noted for the past week. On this admission patient was made DNR status. Past Medical History Cardiac Medical History: Reports: Coronary Artery Disease, Hyperlipidema, Hypertension Pulmonary Medical History: Reports: Chronic Obstructive Pulmonary Disease (COPD) Endocrine Medical History: Reports: Diabetes Mellitus Type 2 Malignancy Medical History: Reports: Lung Cancer - With metastasis to brain GI Medical History: Reports: Gastroesophageal Reflux Disease, Hiatal Hernia Musculoskeltal Medical History: Reports: Arthritis Psychiatric Medical History: Reports: Depression Hematology: Reports: Anemia Past Surgical History Past Surgical History: Reports: Cardiac Catheterization - with 2 stents placed 7 -8 years ago, Coronary Stent, Other - Coronary artery stents 2;left upper lobectomy Social History Smoking Status: Unknown if Ever Smoked Frequency of Alcohol Use: None Hx Recreational Drug Use: No Drugs: None Hx Prescription Drug Abuse: No - Advance Directive Resuscitation Status: Do Not Resuscitate Family History Family History: Reviewed & Not Pertinent, CVA, DM, Hypertension, Malignancy Parental Family History Reviewed: No Children Family History Reviewed: No Sibling(s) Family History Reviewed.: No Medication/Allergy Home Medications: Albuterol Sulfate [Albuterol Sulfate 2.5mg/3 mL] 3 ml NEB RTQ8HP PRN 02/01/17 Albuterol Sulfate [Proair HFA] 2 puff IH Q4HP PRN 02/01/17 Aspirin [Aspirin EC] 81 mg PO DAILY 02/01/17 Atorvastatin Calcium [Lipitor 20 mg Tablet] 20 mg PO DAILY 02/01/17 Cholecalciferol (Vitamin D3) [Vitamin D3 2000 unit Tablet] 2,000 unit PO DAILY 02/01/17 Clopidogrel Bisulfate [Plavix 75 mg Tablet] 75 mg PO DAILY 02/01/17 Dexamethasone [Decadron 4 mg Tablet] 4 mg PO DAILY 02/01/17 Ergocalciferol (Vitamin D2) [Vitamin D2] 50,000 unit PO PALENCIA@1000 02/01/17 Finasteride [Proscar 5 mg Tablet] 5 mg PO QHS 02/01/17 Gabapentin [Neurontin 300 mg Capsule] 600 mg PO Q12 02/01/17 Insulin Glargine,Hum.rec.anlog [Lantus Solostar] 0 units SQ .PERSLIDINGSCALE 04/19 Ipratropium/Albuterol Sulfate [Combivent Inhaler] 1 puff IH Q8 02/01/17 Loratadine [Claritin 10 mg Tablet] 10 mg PO DAILY 02/01/17 Metoprolol Succinate [Toprol Xl 25 mg Tab.sr] 25 mg PO DAILY 02/01/17 Nitroglycerin [Nitrostat 0.4 mg (1/150 Gr) Tabs 25/Bottle] 0.4 mg PO Q5MP PRN Omeprazole 20 mg PO BID 02/01/17 Tamsulosin HCl [Flomax 0.4 mg Cap.sr] 0.4 mg PO DAILY 02/01/17 Allergies/Adverse Reactions: No Known Drug Allergies Allergy (Unknown, Verified 01/23/17 12:54) Review of Systems Gastrointestinal: PRESENT: as per HPI Genitourinary: PRESENT: as per HPI Integumentary: PRESENT: other - Some pains in sacral area Neurological: PRESENT: weakness Physical Exam Vital Signs: Temp Pulse Resp BP Pulse Ox 99.9 F 108 H 16 116/69 96 02/01/17 19:41 02/01/17 19:41 02/01/17 19:41 02/01/17 19:41 02/01/17 19:41 Intake & Output 01/31/17 02/01/17 02/02/17 06:59 06:59 06:59 Intake Total 325 2365 Output Total 750 Balance 325 1615 Weight 85.1 kg General appearance: PRESENT: mild distress Eye exam: PRESENT: conjunctiva pink Ear exam: PRESENT: normal external ear exam Mouth exam: PRESENT: moist, neck supple Neck exam: PRESENT: full ROM Respiratory exam: PRESENT: decreased breath sounds Cardiovascular exam: PRESENT: RRR Pulses: PRESENT: normal carotid pulses Vascular exam: PRESENT: normal capillary refill GI/Abdominal exam: PRESENT: soft, other - Nontender Rectal exam: PRESENT: other - Has 2 almost full-thickness skin ulcerations roughly measuring about 1-1/2 cm each along each side of the sacral area. 2 other smaller areas about half centimeters each below the current ulcerations Extremities exam: PRESENT: full ROM Musculoskeletal exam: PRESENT: full ROM Neurological exam: PRESENT: alert, oriented to person, oriented to place, oriented to time, oriented to situation Skin exam: PRESENT: other - As a 1-1/2 cm almost full-thickness skin ulceration on each side of the sacrum with 2 smaller half centimeter ulcers below the larger ulcers. There is minimal erythema Results Laboratory Results: 02/01/17 07:45 Urine Color YELLOW Urine Appearance CLEAR Urine pH 5.0 Ur Specific [place] 1.014 Urine Protein NEGATIVE Urine Glucose (UA) NEGATIVE Urine Ketones NEGATIVE Urine Blood MODERATE H Urine Nitrite NEGATIVE Ur Leukocyte Esterase TRACE H Urine WBC (Auto) 3 Urine RBC (Auto) 2 Impressions: Chest X-Ray 01/31/17 21:36 IMPRESSION: Extensive pleural and parenchymal changes in the left lung which appear to be stable from the previous exam. Head CT 01/31/17 23:56 IMPRESSION: CHRONIC CHANGES OF ATROPHY AND MICROVASCULAR ISCHEMIA. Metastatic disease as noted above. Lytic lesion in the occipital region of the bony calvaria to the right of midline. Other findings as noted above EVIDENCE OF ACUTE STROKE: NO. Assessment & Plan - Time Time Spent: 30 to 50 Minutes - Plan Summary Plan Summary: #1 apply a thin swab of Betadine solution to ulcer sacral area and then apply Allevyn dressing twice a day. Just need a dab of Betadine because stronger and prolonged contact with the Betadine may be toxic to normal tissue. 2. Make sure patient's nutritional status is adequate. May add ensure 1 can p.o. 3 times daily 3. Avoid prolonged pressure on the sacral area
[2017-02-01] MEDS: INSULIN GLARGINE,HUM.REC.ANLOG 300 UNIT/3 ML INSULN.PEN SUBCUT SCH (21:08)
[2017-02-01] MEDS: GABAPENTIN 300 MG CAPSULE PO SCH (21:09)
[2017-02-02] MEDS: NYSTATIN/DEXAMETH/DIPHEN SUSP 120 ML PO SCH ×5 (00:32→23:27)
[2017-02-02] MEDS: LEVALBUTEROL HCL NEB 0.63 MG/3 ML AMPUL NEB SCH ×4 (01:37→19:42)
[2017-02-02] MEDS: NORMAL SALINE 1000 ML 1,000 ML IV PRN (05:49)
[2017-02-02] MEDS: OXYCODONE HCL IR 5 MG TABLET PO PRN ×3 (05:50→19:10)
[2017-02-02 06:36] LABS: ANION GAP 9 (5-19); BLOOD UREA NITROGEN 22 mg/dL (7-20); CALCIUM 7.9 mg/dL (8.4-10.2); CARBON DIOXIDE 22 mmol/L (22-30); CHLORIDE 101 mmol/L (98-107); GLUCOSE 150 mg/dL (75-110); MAGNESIUM 1.6 mg/dL (1.6-2.3); POTASSIUM 4.4 mmol/L (3.6-5.0); SODIUM 131.6 mmol/L (137-145)
[2017-02-02 06:37] LABS: ABSOLUTE LYMPHOCYTES (AUTO) 0.4 10^3/uL (0.5-4.7); ABSOLUTE MONOCYTES (AUTO) 0.3 10^3/uL (0.1-1.4); EOSINOPHILS % (AUTO) 0.5 % (0-6); HEMATOCRIT 30.8 % (37.9-51.0); HEMOGLOBIN 10.9 g/dL (13.5-17.0); HGB HCT DIFFERENCE 1.9; LYMPHOCYTES % (AUTO) 5.8 % (13-45); MEAN CORPUSCULAR HGB CONC 35.4 g/dL (32.0-36.0); MEAN CORPUSCULAR VOLUME 93 fl (80-97); MONOCYTES % (AUTO) 4.5 % (3-13); RED BLOOD COUNT 3.31 10^6/uL (4.35-5.55); RED CELL DISTRIBUTION WIDTH 14.8 % (11.5-14.0); SEGMENTED NEUTROPHILS % (AUTO) 89.2 % (42-78); WHITE BLOOD COUNT 6.8 10^3/uL (4.0-10.5)
--- NOTE | 2017-02-02 08:27 | PDOC PROGRESS REPORT ---
Subjective Progress Note for:: 02/02/17 Subjective:: Looks great this am, eating well, it getting up to toilet by himself over last 8 hrs. Just told by nursing that 1/2 bcx +for GPCs Physical Exam Vital Signs: Temp Pulse Resp BP Pulse Ox 99.0 F 35 L 16 131/90 H 94 02/02/17 03:35 02/02/17 03:35 02/02/17 03:35 02/02/17 03:35 02/02/17 03:35 Intake & Output 02/01/17 02/02/17 02/03/17 06:59 06:59 06:59 Intake Total 325 4275 Output Total 1750 Balance 325 2525 Weight 85.1 kg 85.1 kg General appearance: PRESENT: no acute distress, well-developed, well-nourished Head exam: PRESENT: atraumatic, normocephalic Eye exam: PRESENT: conjunctiva pink, EOMI, PERRLA. ABSENT: scleral icterus Ear exam: PRESENT: normal external ear exam Mouth exam: PRESENT: moist, tongue midline Neck exam: ABSENT: carotid bruit, JVD, lymphadenopathy, thyromegaly Respiratory exam: PRESENT: clear to auscultation concetta. ABSENT: rales, rhonchi, wheezes Cardiovascular exam: PRESENT: RRR. ABSENT: diastolic murmur, rubs, systolic murmur Pulses: PRESENT: normal dorsalis pedis pul Vascular exam: PRESENT: normal capillary refill GI/Abdominal exam: PRESENT: normal bowel sounds, soft. ABSENT: distended, guarding, mass, organolmegaly, rebound, tenderness Rectal exam: PRESENT: deferred Extremities exam: PRESENT: full ROM. ABSENT: calf tenderness, clubbing, pedal edema Neurological exam: PRESENT: alert, awake, oriented to person, oriented to place , oriented to time, oriented to situation, CN II-XII grossly intact. ABSENT: motor sensory deficit Psychiatric exam: PRESENT: appropriate affect, normal mood. ABSENT: homicidal ideation, suicidal ideation Skin exam: PRESENT: dry, intact, warm. ABSENT: cyanosis, rash Results Laboratory Results: 02/02/17 06:00 02/02/17 06:00 02/01/17 02/02/17 02/02/17 07:45 06:00 06:00 WBC 6.8 RBC 3.31 L Hgb 10.9 L Hct 30.8 L MCV 93 MCH 33.0 MCHC 35.4 RDW 14.8 H Plt Count 97 L Seg Neutrophils % 89.2 H Lymphocytes % 5.8 L Monocytes % 4.5 Eosinophils % 0.5 Basophils % 0.0 Absolute Neutrophils 6.0 Absolute Lymphocytes 0.4 L Absolute Monocytes 0.3 Absolute Eosinophils 0.0 Absolute Basophils 0.0 Sodium 131.6 L Potassium 4.4 Chloride 101 Carbon Dioxide 22 Anion Gap 9 BUN 22 H Creatinine 1.00 Est GFR ( Amer) > 60 Est GFR (Non-Af Amer) > 60 Glucose 150 H Calcium 7.9 L Magnesium 1.6 Urine Color YELLOW Urine Appearance CLEAR Urine pH 5.0 Ur Specific [place] 1.014 Urine Protein NEGATIVE Urine Glucose (UA) NEGATIVE Urine Ketones NEGATIVE Urine Blood MODERATE H Urine Nitrite NEGATIVE Ur Leukocyte Esterase TRACE H Urine WBC (Auto) 3 Urine RBC (Auto) 2 Impressions: Chest X-Ray 01/31/17 21:36 IMPRESSION: Extensive pleural and parenchymal changes in the left lung which appear to be stable from the previous exam. Head CT 01/31/17 23:56 IMPRESSION: CHRONIC CHANGES OF ATROPHY AND MICROVASCULAR ISCHEMIA. Metastatic disease as noted above. Lytic lesion in the occipital region of the bony calvaria to the right of midline. Other findings as noted above EVIDENCE OF ACUTE STROKE: NO. 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 Is this a current diagnosis for this admission?: Yes Plan: Con't w/ XRT brain, will consider systemic chemo as outpt, d/w family who are at bedside, spent >35 min in discussion this am (2) Pain, neoplasm-related Is this a current diagnosis for this admission?: Yes Plan: Controlled w/ oxycodone alone, will cont - Time Time Spent with patient: 35 or more minutes Critical Time spent with patient: 35 or more minutes - Inpatient Certification Based on my medical assessment, after consideration of the patient's comorbidities, presenting symptoms, or acuity I expect that the services needed warrant INPATIENT care.: Yes I certify that my determination is in accordance with my understanding of Medicare's requirements for reasonable and necessary INPATIENT services [42 CFR 412.3e].: Yes Medical Necessity: Need for IV Antibiotics
[2017-02-02] MEDS: INSULIN LISPRO 100 UNIT/ML 3 ML VIAL SUBCUT PRN ×4 (08:37→21:38)
[2017-02-02] MEDS: LANSOPRAZOLE 15 MG TAB.RAP.DR PO SCH ×2 (08:37→16:51)
[2017-02-02] MEDS: METOPROLOL SUCCINATE 25 MG TAB.SR.24H PO SCH (09:40)
[2017-02-02] MEDS: FLUCONAZOLE 100 MG TABLET PO SCH (09:41)
[2017-02-02] MEDS: ASPIRIN 81 MG TABLET, ENT COATED PO SCH (09:41)
[2017-02-02] MEDS: GABAPENTIN 300 MG CAPSULE PO SCH ×2 (09:41→21:38)
[2017-02-02] MEDS: LORATADINE 10 MG TABLET PO SCH (09:41)
[2017-02-02] MEDS: DEXAMETHASONE 4 MG TABLET PO SCH (09:41)
[2017-02-02] MEDS: CEFEPIME 1 GM/D5W RTU 1 GM/50 ML RTUPB IV SCH ×2 (09:42→21:39)
[2017-02-02] MEDS: FAMOTIDINE INJ/PF 20 MG/2 ML SDV IV SCH (09:42)
[2017-02-02] MEDS ORDERED: TAMSULOSIN HCL 0.4 MG CAP.SR.24H PO SCH (10:00)
[2017-02-02] MEDS ORDERED: ATORVASTATIN CALCIUM 20 MG TABLET PO SCH (10:00)
--- NOTE | 2017-02-02 12:47 | PDOC PROGRESS REPORT ---
Subjective Progress Note for:: 02/02/17 Subjective:: Patient is currently doing much betterPatient's denied any chest pain without any shortness of the breath Patient's blood sugar currently stable This with the patient and the family member in the room with extensively Physical Exam Vital Signs: Temp Pulse Resp BP Pulse Ox 99.0 F 101 H 18 101/65 97 02/02/17 11:37 02/02/17 11:37 02/02/17 11:37 02/02/17 11:37 02/02/17 11:37 Intake & Output 02/01/17 02/02/17 02/03/17 06:59 06:59 06:59 Intake Total 325 4275 Output Total 1750 Balance 325 2525 Weight 85.1 kg 85.1 kg General appearance: PRESENT: no acute distress, well-developed, well-nourished Head exam: PRESENT: atraumatic, normocephalic Eye exam: PRESENT: conjunctiva pink, EOMI, PERRLA. ABSENT: scleral icterus Ear exam: PRESENT: normal external ear exam Mouth exam: PRESENT: moist, tongue midline Neck exam: PRESENT: full ROM. ABSENT: carotid bruit, JVD, lymphadenopathy, thyromegaly Respiratory exam: PRESENT: clear to auscultation concetta Cardiovascular exam: PRESENT: RRR. ABSENT: diastolic murmur, rubs, systolic murmur Pulses: PRESENT: normal dorsalis pedis pul, +2 pedal pulses bilateral Vascular exam: PRESENT: normal capillary refill GI/Abdominal exam: PRESENT: normal bowel sounds, soft. ABSENT: distended, guarding, mass, organolmegaly, rebound, tenderness Rectal exam: PRESENT: deferred Extremities exam: ABSENT: full ROM, left AKA, right AKA, left BKA, right BKA, calf tenderness, joint swelling, pedal edema, tenderness, other Musculoskeletal exam: PRESENT: ambulatory Neurological exam: PRESENT: alert, awake, oriented to person, oriented to place , oriented to time, oriented to situation, CN II-XII grossly intact. ABSENT: motor sensory deficit Psychiatric exam: PRESENT: appropriate affect, normal mood. ABSENT: homicidal ideation, suicidal ideation Skin exam: PRESENT: dry, intact, warm. ABSENT: cyanosis, rash Results Laboratory Results: 02/02/17 06:00 02/02/17 06:00 02/02/17 02/02/17 06:00 06:00 WBC 6.8 RBC 3.31 L Hgb 10.9 L Hct 30.8 L MCV 93 MCH 33.0 MCHC 35.4 RDW 14.8 H Plt Count 97 L Seg Neutrophils % 89.2 H Lymphocytes % 5.8 L Monocytes % 4.5 Eosinophils % 0.5 Basophils % 0.0 Absolute Neutrophils 6.0 Absolute Lymphocytes 0.4 L Absolute Monocytes 0.3 Absolute Eosinophils 0.0 Absolute Basophils 0.0 Sodium 131.6 L Potassium 4.4 Chloride 101 Carbon Dioxide 22 Anion Gap 9 BUN 22 H Creatinine 1.00 Est GFR ( Amer) > 60 Est GFR (Non-Af Amer) > 60 Glucose 150 H Calcium 7.9 L Magnesium 1.6 Impressions: Chest X-Ray 01/31/17 21:36 IMPRESSION: Extensive pleural and parenchymal changes in the left lung which appear to be stable from the previous exam. Head CT 01/31/17 23:56 IMPRESSION: CHRONIC CHANGES OF ATROPHY AND MICROVASCULAR ISCHEMIA. Metastatic disease as noted above. Lytic lesion in the occipital region of the bony calvaria to the right of midline. Other findings as noted above EVIDENCE OF ACUTE STROKE: NO. Assessment & Plan - Diagnosis (1) Altered mental status Qualifiers: Altered mental status type: unspecified Qualified Code(s): R41.82 - Altered mental status, unspecified Is this a current diagnosis for this admission?: Yes Plan: Currently all resolved (2) Stage I decubitus ulcer and pressure area Qualifiers: Laterality: unspecified laterality Is this a current diagnosis for this admission?: Yes Plan: Seen by the surgeon and apply for the dressing (3) Hyponatremia Is this a current diagnosis for this admission?: Yes Plan: With the radiation of the brain and a stage IV lung cancersWe will start the patient on some IV fluid and correct the sodium (4) 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 Is this a current diagnosis for this admission?: Yes Plan: Follow with the oncology again very extensive discussed with the patient's and the son with oncology about the patient's current conditions with the poor prognosisIn patients prefer to the DNR/DNI (5) Atrial fibrillation Qualifiers: Atrial fibrillation type: unspecified Qualified Code(s): I48.91 - Unspecified atrial fibrillation Is this a current diagnosis for this admission?: Yes Plan: Continues the beta-parish patient is a not a candidate for anticoagulations to the ongoing brain radiations (6) Chronic obstructive pulmonary disease Qualifiers: COPD type: unspecified COPD Qualified Code(s): J44.9 - Chronic obstructive pulmonary disease, unspecified Is this a current diagnosis for this admission?: Yes Plan: Continues to nebulizer treatments (7) Coronary artery disease Qualifiers: Coronary Disease-Associated Artery/Lesion type: unspecified vessel or lesion type Is this a current diagnosis for this admission?: Yes Plan: Currently all stable (8) Postobstructive pneumonia Is this a current diagnosis for this admission?: Yes Plan: Continues to IV cefepime (9) Type 2 diabetes mellitus Qualifiers: Diabetes mellitus complication status: with unspecified complications Is this a current diagnosis for this admission?: Yes Plan: Currently all stable - Time Time Spent with patient: 15-24 minutes Medications reviewed and adjusted accordingly: Yes Anticipated discharge: Home Within: within 24 hours - Inpatient Certification Medical Necessity: Need Close Monitoring Due to Risk of Patient Decompensation, Need for IV Antibiotics Post Hospital Care: D/C Gear Room Keeper Documentation - Plan Summary Plan Summary: The external discussed with the patient and the family in the room if the patient's all cultures come back negative will DC the PICC line and start patient on the p.o. antibiotic and discharge home tomorrow
[2017-02-02] MEDS ORDERED: ACETAMINOPHEN 325 MG TABLET PO PRN (13:00)
[2017-02-02] MEDS ORDERED: METOPROLOL TARTRATE 25 MG TABLET PO ONE (18:15)
[2017-02-02] MEDS ORDERED: DILTIAZEM HCL 30 MG TABLET ONE (21:32)
[2017-02-02] MEDS: ATORVASTATIN CALCIUM 20 MG TABLET PO SCH (21:37)
[2017-02-02] MEDS: FAMOTIDINE 20 MG TABLET PO SCH (21:37)
[2017-02-02] MEDS: TAMSULOSIN HCL 0.4 MG CAP.SR.24H PO SCH (21:37)
[2017-02-02] MEDS: DILTIAZEM HCL 30 MG TABLET PO SCH (21:38)
[2017-02-02] MEDS: INSULIN GLARGINE,HUM.REC.ANLOG 300 UNIT/3 ML INSULN.PEN SUBCUT SCH (21:38)
--- NOTE | 2017-02-02 21:38 | EKG REPORT ---
SEVERITY:- ABNORMAL ECG - SINUS TACHYCARDIA MULTIPLE ATRIAL PREMATURE COMPLEXES PROBABLE RIGHT VENTRICULAR HYPERTROPHY BORDERLINE T ABNORMALITIES, INFERIOR LEADS BORDERLINE PROLONGED QT INTERVAL : Confirmed by: Avril Cody 02-Feb-2017 21:37:42
--- NOTE | 2017-02-02 21:38 | EKG REPORT ---
SEVERITY:- ABNORMAL ECG - A-FLUTTER, AFIB RIGHT AXIS DEVIATION BORDERLINE T ABNORMALITIES, INFERIOR LEADS BORDERLINE PROLONGED QT INTERVAL : Confirmed by: Avril Cody 02-Feb-2017 21:37:28
[2017-02-03] MEDS: LEVALBUTEROL HCL NEB 0.63 MG/3 ML AMPUL NEB SCH ×4 (02:04→20:29)
[2017-02-03] MEDS: OXYCODONE HCL IR 5 MG TABLET PO PRN ×2 (04:20→17:18)
[2017-02-03] MEDS: DILTIAZEM HCL 30 MG TABLET PO SCH ×3 (05:19→22:00)
[2017-02-03] MEDS: NYSTATIN/DEXAMETH/DIPHEN SUSP 120 ML PO SCH ×3 (05:19→17:40)
[2017-02-03 06:46] LABS: HEMOGLOBIN 9.4 g/dL (13.5-17.0); HGB HCT DIFFERENCE 1.2; MEAN CORPUSCULAR HEMOGLOBIN 32.9 pg (27.0-33.4); MEAN CORPUSCULAR HGB CONC 34.8 g/dL (32.0-36.0); MEAN CORPUSCULAR VOLUME 94 fl (80-97); RED BLOOD COUNT 2.86 10^6/uL (4.35-5.55); RED CELL DISTRIBUTION WIDTH 14.7 % (11.5-14.0); WHITE BLOOD COUNT 6.4 10^3/uL (4.0-10.5)
[2017-02-03 07:10] LABS: ANION GAP 11 (5-19); BLOOD UREA NITROGEN 30 mg/dL (7-20); CALCIUM 8.1 mg/dL (8.4-10.2); CARBON DIOXIDE 22 mmol/L (22-30); CHLORIDE 97 mmol/L (98-107); GLUCOSE 321 mg/dL (75-110); MAGNESIUM 1.7 mg/dL (1.6-2.3); POTASSIUM 4.9 mmol/L (3.6-5.0); SODIUM 129.9 mmol/L (137-145)
[2017-02-03 07:42] LABS: ANISOCYTOSIS SLIGHT; BASOPHILS % (MANUAL) 0 % (0-2); EOSINOPHILS % (MANUAL) 0 % (0-6); LYMPHOCYTES % (MANUAL) 1 % (13-45); OVALOCYTES SLIGHT; POIKILOCYTOSIS SLIGHT; TEAR DROP CELLS SLIGHT; TOTAL CELLS COUNTED 100; TOXIC GRANULATION 1+
--- NOTE | 2017-02-03 08:13 | PDOC PROGRESS REPORT ---
Subjective Progress Note for:: 02/03/17 Subjective:: Pt w/ runs of afib yesterday Physical Exam Vital Signs: Temp Pulse Resp BP Pulse Ox 98.4 F 80 18 130/72 H 95 02/03/17 07:31 02/03/17 07:31 02/03/17 07:31 02/03/17 07:31 02/03/17 07:31 Intake & Output 02/02/17 02/03/17 02/04/17 06:59 06:59 06:59 Intake Total 4275 2517 Output Total 1750 800 Balance 2525 1717 Weight 85.1 kg 87.8 kg General appearance: PRESENT: no acute distress, well-developed, well-nourished Head exam: PRESENT: atraumatic, normocephalic Eye exam: PRESENT: conjunctiva pink, EOMI, PERRLA. ABSENT: scleral icterus Ear exam: PRESENT: normal external ear exam Mouth exam: PRESENT: moist, tongue midline Neck exam: ABSENT: carotid bruit, JVD, lymphadenopathy, thyromegaly Respiratory exam: PRESENT: clear to auscultation concetta. ABSENT: rales, rhonchi, wheezes Cardiovascular exam: PRESENT: RRR. ABSENT: diastolic murmur, rubs, systolic murmur Pulses: PRESENT: normal dorsalis pedis pul Vascular exam: PRESENT: normal capillary refill GI/Abdominal exam: PRESENT: normal bowel sounds, soft. ABSENT: distended, guarding, mass, organolmegaly, rebound, tenderness Rectal exam: PRESENT: deferred Extremities exam: PRESENT: full ROM. ABSENT: calf tenderness, clubbing, pedal edema Neurological exam: PRESENT: alert, awake, oriented to person, oriented to place , oriented to time, oriented to situation, CN II-XII grossly intact. ABSENT: motor sensory deficit Psychiatric exam: PRESENT: appropriate affect, normal mood. ABSENT: homicidal ideation, suicidal ideation Skin exam: PRESENT: dry, intact, warm. ABSENT: cyanosis, rash Results Laboratory Results: 02/03/17 06:21 02/03/17 06:21 02/03/17 02/03/17 06:21 06:21 WBC 6.4 RBC 2.86 L Hgb 9.4 L Hct 27.0 L MCV 94 MCH 32.9 MCHC 34.8 RDW 14.7 H Plt Count 92 L Seg Neutrophils % Not Reportable Lymphocytes % Not Reportable Monocytes % Not Reportable Eosinophils % Not Reportable Basophils % Not Reportable Absolute Neutrophils Not Reportable Absolute Lymphocytes Not Reportable Absolute Monocytes Not Reportable Absolute Eosinophils Not Reportable Absolute Basophils Not Reportable Sodium 129.9 L Potassium 4.9 Chloride 97 L Carbon Dioxide 22 Anion Gap 11 BUN 30 H Creatinine 1.10 Est GFR ( Amer) > 60 Est GFR (Non-Af Amer) > 60 Glucose 321 H Calcium 8.1 L Magnesium 1.7 Impressions: Chest X-Ray 01/31/17 21:36 IMPRESSION: Extensive pleural and parenchymal changes in the left lung which appear to be stable from the previous exam. Head CT 01/31/17 23:56 IMPRESSION: CHRONIC CHANGES OF ATROPHY AND MICROVASCULAR ISCHEMIA. Metastatic disease as noted above. Lytic lesion in the occipital region of the bony calvaria to the right of midline. Other findings as noted above EVIDENCE OF ACUTE STROKE: NO. 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
--- NOTE | 2017-02-03 08:15 | PDOC PROGRESS REPORT ---
Subjective Progress Note for:: 02/03/17 Subjective:: Patient is currently doing fairPatient underwent for the A. fib and give a p.o. Cardizem and extra beta-parish and now converted to sinus rhythm Patient's denied any chest pain denied any shortness of the breath Patient's blood sugar still in the challenge but the patient eats donuts yesterday Patient still getting the brain radiations Physical Exam Vital Signs: Temp Pulse Resp BP Pulse Ox 98.7 F 81 16 120/84 94 02/03/17 04:00 02/03/17 04:00 02/03/17 04:00 02/03/17 04:00 02/03/17 04:00 Intake & Output 02/02/17 02/03/17 02/04/17 06:59 06:59 06:59 Intake Total 4275 2517 Output Total 1750 800 Balance 2525 1717 Weight 85.1 kg 87.8 kg General appearance: PRESENT: no acute distress, well-developed, well-nourished Head exam: PRESENT: atraumatic, normocephalic Eye exam: PRESENT: conjunctiva pink, EOMI, PERRLA. ABSENT: scleral icterus Ear exam: PRESENT: normal external ear exam Mouth exam: PRESENT: moist, tongue midline Neck exam: PRESENT: full ROM. ABSENT: carotid bruit, JVD, lymphadenopathy, thyromegaly Respiratory exam: PRESENT: clear to auscultation concetta Cardiovascular exam: PRESENT: RRR. ABSENT: diastolic murmur, rubs, systolic murmur Pulses: PRESENT: normal dorsalis pedis pul, +2 pedal pulses bilateral Vascular exam: PRESENT: normal capillary refill GI/Abdominal exam: PRESENT: normal bowel sounds, soft. ABSENT: distended, guarding, mass, organolmegaly, rebound, tenderness Rectal exam: PRESENT: deferred Extremities exam: ABSENT: full ROM, left AKA, right AKA, left BKA, right BKA, calf tenderness, joint swelling, pedal edema, tenderness, other Musculoskeletal exam: PRESENT: ambulatory Neurological exam: PRESENT: alert, awake, oriented to person, oriented to place , oriented to time, oriented to situation, CN II-XII grossly intact. ABSENT: motor sensory deficit Psychiatric exam: PRESENT: appropriate affect, normal mood. ABSENT: homicidal ideation, suicidal ideation Skin exam: PRESENT: dry, intact, warm. ABSENT: cyanosis, rash Results Laboratory Results: 02/03/17 06:21 02/03/17 06:21 02/03/17 02/03/17 06:21 06:21 WBC 6.4 RBC 2.86 L Hgb 9.4 L Hct 27.0 L MCV 94 MCH 32.9 MCHC 34.8 RDW 14.7 H Plt Count 92 L Seg Neutrophils % Not Reportable Lymphocytes % Not Reportable Monocytes % Not Reportable Eosinophils % Not Reportable Basophils % Not Reportable Absolute Neutrophils Not Reportable Absolute Lymphocytes Not Reportable Absolute Monocytes Not Reportable Absolute Eosinophils Not Reportable Absolute Basophils Not Reportable Sodium 129.9 L Potassium 4.9 Chloride 97 L Carbon Dioxide 22 Anion Gap 11 BUN 30 H Creatinine 1.10 Est GFR ( Amer) > 60 Est GFR (Non-Af Amer) > 60 Glucose 321 H Calcium 8.1 L Magnesium 1.7 Impressions: Chest X-Ray 01/31/17 21:36 IMPRESSION: Extensive pleural and parenchymal changes in the left lung which appear to be stable from the previous exam. Head CT 01/31/17 23:56 IMPRESSION: CHRONIC CHANGES OF ATROPHY AND MICROVASCULAR ISCHEMIA. Metastatic disease as noted above. Lytic lesion in the occipital region of the bony calvaria to the right of midline. Other findings as noted above EVIDENCE OF ACUTE STROKE: NO. Assessment & Plan - Diagnosis (1) Altered mental status Qualifiers: Altered mental status type: unspecified Qualified Code(s): R41.82 - Altered mental status, unspecified Is this a current diagnosis for this admission?: Yes Plan: Currently all resolved (2) Stage I decubitus ulcer and pressure area Qualifiers: Laterality: unspecified laterality Is this a current diagnosis for this admission?: Yes Plan: Seen by the surgeon and apply for the dressing (3) Hyponatremia Is this a current diagnosis for this admission?: Yes Plan: Will check the urine osmolality and serum osmolality most likely underlying SIADH fluid restrictions (4) 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 Plunkett (6) Chronic obstructive pulmonary disease Qualifiers: COPD type: unspecified COPD Qualified Code(s): J44.9 - Chronic obstructive pulmonary disease, unspecified Is this a current diagnosis for this admission?: Yes Plan: Continues to nebulizer treatments (7) Coronary artery disease Qualifiers: Coronary Disease-Associated Artery/Lesion type: unspecified vessel or lesion type Is this a current diagnosis for this admission?: Yes Plan: Currently all stable (8) Postobstructive pneumonia Is this a current diagnosis for this admission?: Yes Plan: Continues IV cefepime (9) Type 2 diabetes mellitus Qualifiers: Diabetes mellitus complication status: with unspecified complications Is this a current diagnosis for this admission?: Yes Plan: Continues a sliding scale and increase the Lantus 35 units and discussed with the patient and the family do not eat any donuts (11) Sepsis Qualifiers: Sepsis type: sepsis due to unspecified organism Qualified Code(s): A41.9 - Sepsis, unspecified organism Is this a current diagnosis for this admission?: Yes Plan: Will DC the PICC line and send tip for the culture patient is currently afebrile white count is normal may be just a contaminated we will waiting for the peripheral culture and continues to IV antibiotic - Time Time Spent with patient: 15-24 minutes Medications reviewed and adjusted accordingly: Yes Anticipated discharge: Home Within: within 48 hours - Inpatient Certification Medical Necessity: Need Close Monitoring Due to Risk of Patient Decompensation, Need for IV Antibiotics Post Hospital Care: D/C Crane Man Documentation - Plan Summary Plan Summary: Continues IV antibiotics repeat the CBC and Chem-7 in the morning discussed with the patient and the about the all the current test results the plan patients remain in hospital on the weekends and hopefully discharge in a Monday
[2017-02-03] MEDS: INSULIN LISPRO 100 UNIT/ML 3 ML VIAL SUBCUT PRN ×4 (08:21→22:12)
[2017-02-03] MEDS: LANSOPRAZOLE 15 MG TAB.RAP.DR PO SCH ×2 (08:21→17:15)
[2017-02-03] MEDS ORDERED: NYSTATIN/DEXAMETH/DIPHEN SUSP 120 ML PO PRN (09:54)
[2017-02-03] MEDS: LORATADINE 10 MG TABLET PO SCH (10:18)
[2017-02-03] MEDS: FLUCONAZOLE 100 MG TABLET PO SCH (10:18)
[2017-02-03] MEDS: ASPIRIN 81 MG TABLET, ENT COATED PO SCH (10:18)
[2017-02-03] MEDS: GABAPENTIN 300 MG CAPSULE PO SCH ×2 (10:18→22:00)
[2017-02-03] MEDS: METOPROLOL SUCCINATE 25 MG TAB.SR.24H PO SCH (10:19)
[2017-02-03] MEDS: DEXAMETHASONE 4 MG TABLET PO SCH (10:19)
[2017-02-03] MEDS: FAMOTIDINE 20 MG TABLET PO SCH ×2 (10:20→22:01)
[2017-02-03] MEDS: CEFEPIME 1 GM/D5W RTU 1 GM/50 ML RTUPB IV SCH ×2 (10:20→22:02)
[2017-02-03] MEDS: ATORVASTATIN CALCIUM 20 MG TABLET PO SCH (22:00)
[2017-02-03] MEDS: TAMSULOSIN HCL 0.4 MG CAP.SR.24H PO SCH (22:01)
[2017-02-03] MEDS: INSULIN GLARGINE,HUM.REC.ANLOG 300 UNIT/3 ML INSULN.PEN SUBCUT SCH (22:10)
[2017-02-04] MEDS: LEVALBUTEROL HCL NEB 0.63 MG/3 ML AMPUL NEB SCH ×4 (02:30→19:45)
[2017-02-04 05:05] LABS: HEMATOCRIT 26.3 % (37.9-51.0); HEMOGLOBIN 9.2 g/dL (13.5-17.0); HGB HCT DIFFERENCE 1.3; MEAN CORPUSCULAR HEMOGLOBIN 32.8 pg (27.0-33.4); MEAN CORPUSCULAR HGB CONC 34.9 g/dL (32.0-36.0); MEAN CORPUSCULAR VOLUME 94 fl (80-97); RED BLOOD COUNT 2.79 10^6/uL (4.35-5.55); RED CELL DISTRIBUTION WIDTH 14.7 % (11.5-14.0); WHITE BLOOD COUNT 5.1 10^3/uL (4.0-10.5)
[2017-02-04 05:29] LABS: ANION GAP 10 (5-19); BLOOD UREA NITROGEN 32 mg/dL (7-20); CALCIUM 8.7 mg/dL (8.4-10.2); CARBON DIOXIDE 22 mmol/L (22-30); CHLORIDE 97 mmol/L (98-107); CREATININE RESULT 1.11 mg/dL (0.52-1.25); GLUCOSE 297 mg/dL (75-110); MAGNESIUM 1.7 mg/dL (1.6-2.3); POTASSIUM 5.1 mmol/L (3.6-5.0)
[2017-02-04 05:30] LABS: BAND NEUTROPHILS % (MANUAL) 2 % (3-5); BASOPHILS % (MANUAL) 0 % (0-2); EOSINOPHILS % (MANUAL) 0 % (0-6); LYMPHOCYTES % (MANUAL) 3 % (13-45); TOTAL CELLS COUNTED 100
[2017-02-04 05:31] LABS: ANISOCYTOSIS SLIGHT; TOXIC GRANULATION SLIGHT
[2017-02-04] MEDS: OXYCODONE HCL IR 5 MG TABLET PO PRN ×3 (06:08→20:02)
[2017-02-04] MEDS: DILTIAZEM HCL 30 MG TABLET PO SCH ×3 (06:08→21:31)
[2017-02-04] MEDS: LANSOPRAZOLE 15 MG TAB.RAP.DR PO SCH ×2 (08:09→15:15)
[2017-02-04] MEDS: INSULIN LISPRO 100 UNIT/ML 3 ML VIAL SUBCUT PRN ×4 (08:10→21:49)
[2017-02-04] MEDS: NYSTATIN/DEXAMETH/DIPHEN SUSP 120 ML PO SCH ×3 (08:10→16:47)
--- NOTE | 2017-02-04 09:29 | PDOC PROGRESS REPORT ---
Subjective Progress Note for:: 02/04/17 Subjective:: Patient denies any new complaints today. Believes he is doing better. States that he has 3 more radiation treatments left. Physical Exam Vital Signs: Temp Pulse Resp BP Pulse Ox 97.9 F 77 18 113/74 96 02/04/17 08:11 02/04/17 08:11 02/04/17 08:11 02/04/17 08:11 02/04/17 08:11 Intake & Output 02/03/17 02/04/17 02/05/17 06:59 06:59 05:59 Intake Total 2517 800 Output Total 800 2400 Balance 1717 -1600 Weight 87.8 kg 84.8 kg General appearance: PRESENT: no acute distress, well-nourished - at bedside. Respiratory exam: PRESENT: decreased breath sounds. ABSENT: crackles, wheezes Cardiovascular exam: PRESENT: RRR. ABSENT: rubs, systolic murmur GI/Abdominal exam: PRESENT: soft. ABSENT: tenderness Neurological exam: PRESENT: other - Alert and oriented, with fine tremor throughout. Psychiatric exam: PRESENT: appropriate affect, normal mood Results Laboratory Results: 02/04/17 04:14 02/04/17 04:14 02/03/17 02/03/17 02/04/17 06:21 18:47 04:14 WBC 5.1 RBC 2.79 L Hgb 9.2 L Hct 26.3 L MCV 94 MCH 32.8 MCHC 34.9 RDW 14.7 H Plt Count 104 L Seg Neutrophils % Not Reportable Lymphocytes % Not Reportable Monocytes % Not Reportable Eosinophils % Not Reportable Basophils % Not Reportable Absolute Neutrophils Not Reportable Absolute Lymphocytes Not Reportable Absolute Monocytes Not Reportable Absolute Eosinophils Not Reportable Absolute Basophils Not Reportable Sodium Potassium Chloride Carbon Dioxide Anion Gap BUN Creatinine Est GFR ( Amer) Est GFR (Non-Af Amer) Glucose Serum Osmolality 286 Calcium Magnesium Urine Osmolality 492 02/04/17 04:14 WBC RBC Hgb Hct MCV MCH MCHC RDW Plt Count Seg Neutrophils % Lymphocytes % Monocytes % Eosinophils % Basophils % Absolute Neutrophils Absolute Lymphocytes Absolute Monocytes Absolute Eosinophils Absolute Basophils Sodium 129.0 L Potassium 5.1 H Chloride 97 L Carbon Dioxide 22 Anion Gap 10 BUN 32 H Creatinine 1.11 Est GFR ( Amer) > 60 Est GFR (Non-Af Amer) > 60 Glucose 297 H Serum Osmolality Calcium 8.7 Magnesium 1.7 Urine Osmolality 02/01/17 07:45 Clean Catch Midstream Urine Culture - Final C.albicans/C.dubliniensis Impressions: Chest X-Ray 01/31/17 21:36 IMPRESSION: Extensive pleural and parenchymal changes in the left lung which appear to be stable from the previous exam. Head CT 01/31/17 23:56 IMPRESSION: CHRONIC CHANGES OF ATROPHY AND MICROVASCULAR ISCHEMIA. Metastatic disease as noted above. Lytic lesion in the occipital region of the bony calvaria to the right of midline. Other findings as noted above EVIDENCE OF ACUTE STROKE: NO. Assessment & Plan - Diagnosis (1) Pain, neoplasm-related Is this a current diagnosis for this admission?: Yes Plan: Much improved. Continue current care. Will complete XRT within this week. Will see him again as outpatient for further long-term plans. (2) Sepsis Qualifiers: Sepsis type: sepsis due to unspecified organism Qualified Code(s): A41.9 - Sepsis, unspecified organism Is this a current diagnosis for this admission?: Yes Plan: Although 1 Blood culture was positive, all further have remained negative. Agree with current plan for antibiotics.
[2017-02-04] MEDS: CEFEPIME 1 GM/D5W RTU 1 GM/50 ML RTUPB IV SCH ×2 (10:28→21:32)
[2017-02-04] MEDS: FAMOTIDINE 20 MG TABLET PO SCH ×2 (10:29→21:32)
[2017-02-04] MEDS: GABAPENTIN 300 MG CAPSULE PO SCH ×2 (10:29→21:33)
[2017-02-04] MEDS: FLUCONAZOLE 100 MG TABLET PO SCH (10:30)
[2017-02-04] MEDS: ASPIRIN 81 MG TABLET, ENT COATED PO SCH (10:30)
[2017-02-04] MEDS: METOPROLOL SUCCINATE 25 MG TAB.SR.24H PO SCH (10:30)
[2017-02-04] MEDS: LORATADINE 10 MG TABLET PO SCH (10:30)
[2017-02-04] MEDS: DEXAMETHASONE 4 MG TABLET PO SCH (10:31)
--- NOTE | 2017-02-04 11:42 | EKG REPORT ---
SEVERITY:- ABNORMAL ECG - SINUS RHTHM RIGHT AXIS DEVIATION BORDERLINE INFERIOR Q WAVES NONSPECIFIC T CHANGES V2 : Confirmed by: Avril Cody 04-Feb-2017 11:41:18
--- NOTE | 2017-02-04 14:32 | PDOC PROGRESS REPORT ---
Subjective Progress Note for:: 02/04/17 Subjective:: Patient reported satisfactory nursing care. He denied any chest pain or difficulty with breathing. No nausea, vomiting of abdominal pain. PO intake satisfactory. Reported satisfactory bowel movement. No fever or chills. Physical Exam Vital Signs: Temp Pulse Resp BP Pulse Ox 97.9 F 75 16 113/74 96 02/04/17 08:11 02/04/17 08:15 02/04/17 08:15 02/04/17 08:11 02/04/17 08:15 Intake & Output 02/03/17 02/04/17 02/05/17 06:59 06:59 05:59 Intake Total 2517 800 Output Total 800 2400 Balance 1717 -1600 Weight 87.8 kg 84.8 kg General appearance: PRESENT: no acute distress, well-developed, well-nourished Head exam: PRESENT: atraumatic, normocephalic Eye exam: PRESENT: conjunctiva pink, EOMI, PERRLA. ABSENT: scleral icterus Mouth exam: PRESENT: moist Respiratory exam: PRESENT: clear to auscultation concetta, decreased breath sounds Cardiovascular exam: PRESENT: RRR. ABSENT: diastolic murmur, rubs, systolic murmur GI/Abdominal exam: PRESENT: normal bowel sounds, soft. ABSENT: distended, guarding, mass, organolmegaly, rebound, tenderness Extremities exam: ABSENT: pedal edema Musculoskeletal exam: PRESENT: normal inspection Neurological exam: PRESENT: alert, awake, oriented to person, oriented to place , oriented to time, oriented to situation, CN II-XII grossly intact, other - intermittent muscle twitching.. ABSENT: motor sensory deficit Skin exam: PRESENT: dry, warm Results Laboratory Results: 02/04/17 04:14 02/04/17 04:14 02/03/17 02/04/17 02/04/17 18:47 04:14 04:14 WBC 5.1 RBC 2.79 L Hgb 9.2 L Hct 26.3 L MCV 94 MCH 32.8 MCHC 34.9 RDW 14.7 H Plt Count 104 L Seg Neutrophils % Not Reportable Lymphocytes % Not Reportable Monocytes % Not Reportable Eosinophils % Not Reportable Basophils % Not Reportable Absolute Neutrophils Not Reportable Absolute Lymphocytes Not Reportable Absolute Monocytes Not Reportable Absolute Eosinophils Not Reportable Absolute Basophils Not Reportable Sodium 129.0 L Potassium 5.1 H Chloride 97 L Carbon Dioxide 22 Anion Gap 10 BUN 32 H Creatinine 1.11 Est GFR ( Amer) > 60 Est GFR (Non-Af Amer) > 60 Glucose 297 H Calcium 8.7 Magnesium 1.7 Urine Osmolality 492 02/01/17 07:45 Clean Catch Midstream Urine Culture - Final C.albicans/C.dubliniensis Impressions: Chest X-Ray 01/31/17 21:36 IMPRESSION: Extensive pleural and parenchymal changes in the left lung which appear to be stable from the previous exam. Head CT 01/31/17 23:56 IMPRESSION: CHRONIC CHANGES OF ATROPHY AND MICROVASCULAR ISCHEMIA. Metastatic disease as noted above. Lytic lesion in the occipital region of the bony calvaria to the right of midline. Other findings as noted above EVIDENCE OF ACUTE STROKE: NO. 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 (2) Atrial fibrillation Qualifiers: Atrial fibrillation type: paroxysmal Qualified Code(s): I48.0 - Paroxysmal atrial fibrillation Is this a current diagnosis for this admission?: Yes Plan: See covering attending physician orders. (3) Chronic obstructive pulmonary disease Qualifiers: COPD type: unspecified COPD Qualified Code(s): J44.9 - Chronic obstructive pulmonary disease, unspecified Is this a current diagnosis for this admission?: Yes Plan: See covering attending physician orders. (4) Type 2 diabetes mellitus Qualifiers: Diabetes mellitus complication status: with unspecified complications Diabetes mellitus salvage determiner insulin use: without salvage determiner use Qualified Code( s): E11.8 - Type 2 diabetes mellitus with unspecified complications Is this a current diagnosis for this admission?: Yes Plan: See covering attending physician orders. (5) Hyponatremia Is this a current diagnosis for this admission?: Yes Plan: See covering attending physician orders. (6) Postobstructive pneumonia Is this a current diagnosis for this admission?: Yes Plan: Continue IV Cefepime coverage. See covering attending physician orders. - Time Time Spent with patient: 25-34 minutes Medications reviewed and adjusted accordingly: Yes Anticipated discharge: Home - Inpatient Certification Based on my medical assessment, after consideration of the patient's comorbidities, presenting symptoms, or acuity I expect that the services needed warrant INPATIENT care.: Yes I certify that my determination is in accordance with my understanding of Medicare's requirements for reasonable and necessary INPATIENT services [42 CFR 412.3e].: Yes Medical Necessity: Need Close Monitoring Due to Risk of Patient Decompensation, Need For Continuous Telemetry Monitoring, Risk of Complication if Not Cared For in Hospital Post Hospital Care: D/C Material Control Manager Documentation - Plan Summary Plan Summary: Continue all current medication management.
[2017-02-04] MEDS: ATORVASTATIN CALCIUM 20 MG TABLET PO SCH (21:31)
[2017-02-04] MEDS: TAMSULOSIN HCL 0.4 MG CAP.SR.24H PO SCH (21:32)
[2017-02-04] MEDS: INSULIN GLARGINE,HUM.REC.ANLOG 300 UNIT/3 ML INSULN.PEN SUBCUT SCH (21:48)
[2017-02-05] MEDS: LEVALBUTEROL HCL NEB 0.63 MG/3 ML AMPUL NEB SCH ×4 (02:05→19:43)
[2017-02-05] MEDS: DILTIAZEM HCL 30 MG TABLET PO SCH ×3 (06:09→21:41)
[2017-02-05] MEDS: OXYCODONE HCL IR 5 MG TABLET PO PRN (07:50)
[2017-02-05] MEDS: LANSOPRAZOLE 15 MG TAB.RAP.DR PO SCH ×2 (07:51→17:12)
[2017-02-05] MEDS: INSULIN LISPRO 100 UNIT/ML 3 ML VIAL SUBCUT PRN ×3 (07:51→21:41)
[2017-02-05] MEDS: NYSTATIN/DEXAMETH/DIPHEN SUSP 120 ML PO SCH ×3 (07:52→17:13)
[2017-02-05] MEDS: CEFEPIME 1 GM/D5W RTU 1 GM/50 ML RTUPB IV SCH (09:23)
[2017-02-05] MEDS: LORATADINE 10 MG TABLET PO SCH (09:24)
[2017-02-05] MEDS: ASPIRIN 81 MG TABLET, ENT COATED PO SCH (09:24)
[2017-02-05] MEDS: GABAPENTIN 300 MG CAPSULE PO SCH ×2 (09:24→21:41)
[2017-02-05] MEDS: FLUCONAZOLE 100 MG TABLET PO SCH (09:25)
[2017-02-05] MEDS: DEXAMETHASONE 4 MG TABLET PO SCH (09:25)
[2017-02-05] MEDS: FAMOTIDINE 20 MG TABLET PO SCH ×2 (09:25→21:41)
[2017-02-05] MEDS: METOPROLOL SUCCINATE 25 MG TAB.SR.24H PO SCH (09:25)
--- NOTE | 2017-02-05 10:03 | PDOC PROGRESS REPORT ---
Subjective Progress Note for:: 02/05/17 Subjective:: Patient denies any new complaints today. Believes he is doing better. He continues to have mouth pain but the magic mouth wash is helping. His nurses report more balance difficulties and tremors. Physical Exam Vital Signs: Temp Pulse Resp BP Pulse Ox 97.5 F 75 20 125/66 96 02/05/17 08:05 02/05/17 08:05 02/05/17 08:05 02/05/17 08:05 02/05/17 08:05 Intake & Output 02/04/17 02/05/17 02/06/17 07:59 06:59 06:59 Intake Total Output Total Balance Weight General appearance: PRESENT: no acute distress, well-nourished Exam: Sitting up in bed eating with family at bedside. Head exam: PRESENT: atraumatic Mouth exam: PRESENT: moist Respiratory exam: PRESENT: clear to auscultation concetta Cardiovascular exam: PRESENT: RRR Neurological exam: PRESENT: alert, awake, oriented to person, oriented to place , oriented to time, oriented to situation Psychiatric exam: PRESENT: appropriate affect Results Laboratory Results: 02/04/17 04:14 02/04/17 04:14 02/01/17 06:32 Blood Blood Culture - Final Staphylococcus Epidermidis Impressions: Chest X-Ray 01/31/17 21:36 IMPRESSION: Extensive pleural and parenchymal changes in the left lung which appear to be stable from the previous exam. Head CT 01/31/17 23:56 IMPRESSION: CHRONIC CHANGES OF ATROPHY AND MICROVASCULAR ISCHEMIA. Metastatic disease as noted above. Lytic lesion in the occipital region of the bony calvaria to the right of midline. Other findings as noted above EVIDENCE OF ACUTE STROKE: NO. Assessment & Plan - Diagnosis (1) Pain, neoplasm-related Is this a current diagnosis for this admission?: Yes Plan: Much improved. Continue current care. Will complete XRT within this week. Will see him again as outpatient for further long-term plans. (2) Sepsis Qualifiers: Sepsis type: sepsis due to unspecified organism Qualified Code(s): A41.9 - Sepsis, unspecified organism Is this a current diagnosis for this admission?: Yes Plan: Although 1 Blood culture was positive, all further have remained negative. Agree with current plan for antibiotics. Urine with yeast. Hopefully will be able to discharge today or tomorrow.
--- NOTE | 2017-02-05 11:47 | PDOC PROGRESS REPORT ---
Subjective Progress Note for:: 02/05/17 Subjective:: He denied any chest pain or difficulty with breathing. No nausea, vomiting of abdominal pain. P.O intake satisfactory. Reported satisfactory bowel movement. No fever or chills. Physical Exam Vital Signs: Temp Pulse Resp BP Pulse Ox 97.5 F 75 20 125/66 96 02/05/17 08:05 02/05/17 08:05 02/05/17 08:05 02/05/17 08:05 02/05/17 08:05 Intake & Output 02/04/17 02/05/17 02/06/17 07:59 06:59 06:59 Intake Total Output Total Balance Weight Physical Exam: General appearance: PRESENT: no acute distress, well-developed, well-nourished Head exam: PRESENT: atraumatic, normocephalic Eye exam: PRESENT: conjunctiva pink, EOMI, PERRLA. ABSENT: scleral icterus Mouth exam: PRESENT: moist Respiratory exam: PRESENT: clear to auscultation concetta, decreased breath sounds Cardiovascular exam: PRESENT: RRR. ABSENT: diastolic murmur, rubs, systolic murmur GI/Abdominal exam: PRESENT: normal bowel sounds, soft. ABSENT: distended, guarding, mass, organomegaly, rebound, tenderness Extremities exam: ABSENT: pedal edema Musculoskeletal exam: PRESENT: normal inspection Neurological exam: PRESENT: alert, awake, oriented to person, oriented to place , oriented to time, oriented to situation, CN II-XII grossly intact, other - intermittent muscle twitching.. ABSENT: motor sensory deficit Skin exam: PRESENT: dry, warm Results Laboratory Results: 02/04/17 04:14 02/04/17 04:14 02/01/17 06:32 Blood Blood Culture - Final Staphylococcus Epidermidis Impressions: Chest X-Ray 01/31/17 21:36 IMPRESSION: Extensive pleural and parenchymal changes in the left lung which appear to be stable from the previous exam. Head CT 01/31/17 23:56 IMPRESSION: CHRONIC CHANGES OF ATROPHY AND MICROVASCULAR ISCHEMIA. Metastatic disease as noted above. Lytic lesion in the occipital region of the bony calvaria to the right of midline. Other findings as noted above EVIDENCE OF ACUTE STROKE: NO. 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 Is this a current diagnosis for this admission?: Yes (2) Atrial fibrillation Qualifiers: Atrial fibrillation type: paroxysmal Qualified Code(s): I48.0 - Paroxysmal atrial fibrillation Is this a current diagnosis for this admission?: Yes (3) Chronic obstructive pulmonary disease Qualifiers: COPD type: unspecified COPD Qualified Code(s): J44.9 - Chronic obstructive pulmonary disease, unspecified Is this a current diagnosis for this admission?: Yes (4) Type 2 diabetes mellitus Qualifiers: Diabetes mellitus complication status: with unspecified complications 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 Staph. epi. is resistant to cephalosporins on the culture sensitivity panel. Start on IV Clindamycin based on sensitivity report. - Time Time Spent with patient: 25-34 minutes Medications reviewed and adjusted accordingly: Yes Anticipated discharge: Hospice Within: Other - Inpatient Certification Based on my medical assessment, after consideration of the patient's comorbidities, presenting symptoms, or acuity I expect that the services needed warrant INPATIENT care.: Yes I certify that my determination is in accordance with my understanding of Medicare's requirements for reasonable and necessary INPATIENT services [42 CFR 412.3e].: Yes Medical Necessity: Need Close Monitoring Due to Risk of Patient Decompensation, Need For Continuous Telemetry Monitoring, Need for IV Antibiotics, Risk of Complication if Not Cared For in Hospital Post Hospital Care: D/C Computer Applications Developer Documentation - Plan Summary Plan Summary: Patient's
[2017-02-05] MEDS: CLINDAMYCIN 600 MG/D5W RTU 600 MG/50 ML RTUPB IV SCH ×2 (14:58→21:41)
[2017-02-05] MEDS ORDERED: INSULIN LISPRO 100 UNIT/ML 3 ML VIAL SUBCUT ONE (18:00)
[2017-02-05] MEDS: INSULIN GLARGINE,HUM.REC.ANLOG 300 UNIT/3 ML INSULN.PEN SUBCUT SCH (21:41)
[2017-02-05] MEDS: TAMSULOSIN HCL 0.4 MG CAP.SR.24H PO SCH (21:41)
[2017-02-05] MEDS: ATORVASTATIN CALCIUM 20 MG TABLET PO SCH (21:41)
[2017-02-06] MEDS: LEVALBUTEROL HCL NEB 0.63 MG/3 ML AMPUL NEB SCH ×4 (01:41→20:06)
[2017-02-06] MEDS: CLINDAMYCIN 600 MG/D5W RTU 600 MG/50 ML RTUPB IV SCH (05:39)
[2017-02-06] MEDS: DILTIAZEM HCL 30 MG TABLET PO SCH ×2 (05:40→23:09)
[2017-02-06] MEDS: OXYCODONE HCL IR 5 MG TABLET PO PRN ×3 (06:13→17:30)
[2017-02-06] MEDS ORDERED: DEXTROSE 50%-WATER 25 GM/50 ML DISP.SYRIN IV PRN ×2 (08:15)
[2017-02-06] MEDS ORDERED: GLUCAGON,HUMAN RECOMB 1 MG INJ IM PRN (08:15)
[2017-02-06] MEDS ORDERED: DEXTROSE 40% GEL 15 GM TUBE PO PRN ×2 (08:15)
--- NOTE | 2017-02-06 08:46 | PDOC PROGRESS REPORT ---
Subjective Progress Note for:: 02/06/17 Subjective:: Major decline over last 24 hours, less communicative, more imbalanced, seems worse Physical Exam Vital Signs: Temp Pulse Resp BP Pulse Ox 99.2 F 77 18 101/57 L 97 02/06/17 07:33 02/06/17 07:33 02/06/17 07:33 02/06/17 07:33 02/06/17 07:33 Intake & Output 02/05/17 02/06/17 02/07/17 06:59 06:59 06:59 Intake Total 1414 Output Total 1740 Balance -326 Weight 81.4 kg General appearance: PRESENT: no acute distress, well-developed, well-nourished Head exam: PRESENT: atraumatic, normocephalic Eye exam: PRESENT: conjunctiva pink, EOMI, PERRLA. ABSENT: scleral icterus Ear exam: PRESENT: normal external ear exam Mouth exam: PRESENT: moist, tongue midline Neck exam: ABSENT: carotid bruit, JVD, lymphadenopathy, thyromegaly Respiratory exam: PRESENT: clear to auscultation concetta. ABSENT: rales, rhonchi, wheezes Cardiovascular exam: PRESENT: RRR. ABSENT: diastolic murmur, rubs, systolic murmur Pulses: PRESENT: normal dorsalis pedis pul Vascular exam: PRESENT: normal capillary refill GI/Abdominal exam: PRESENT: normal bowel sounds, soft. ABSENT: distended, guarding, mass, organolmegaly, rebound, tenderness Rectal exam: PRESENT: deferred Extremities exam: PRESENT: full ROM. ABSENT: calf tenderness, clubbing, pedal edema Neurological exam: PRESENT: alert, awake, oriented to person, oriented to place , oriented to time, oriented to situation, CN II-XII grossly intact. ABSENT: motor sensory deficit Psychiatric exam: PRESENT: appropriate affect, normal mood. ABSENT: homicidal ideation, suicidal ideation Skin exam: PRESENT: dry, intact, warm. ABSENT: cyanosis, rash Results Laboratory Results: 02/04/17 04:14 02/04/17 04:14 02/01/17 01:35 Blood Blood Culture - Final NO GROWTH IN 5 DAYS Impressions: Chest X-Ray 01/31/17 21:36 IMPRESSION: Extensive pleural and parenchymal changes in the left lung which appear to be stable from the previous exam. Head CT 01/31/17 23:56 IMPRESSION: CHRONIC CHANGES OF ATROPHY AND MICROVASCULAR ISCHEMIA. Metastatic disease as noted above. Lytic lesion in the occipital region of the bony calvaria to the right of midline. Other findings as noted above EVIDENCE OF ACUTE STROKE: NO. 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
[2017-02-06 09:51] LABS: ANION GAP 14 (5-19); BLOOD UREA NITROGEN 43 mg/dL (7-20); CALCIUM 8.8 mg/dL (8.4-10.2); CARBON DIOXIDE 24 mmol/L (22-30); CHLORIDE 95 mmol/L (98-107); CREATININE RESULT 1.13 mg/dL (0.52-1.25); GLUCOSE 304 mg/dL (75-110); POTASSIUM 4.9 mmol/L (3.6-5.0); SODIUM 132.7 mmol/L (137-145)
[2017-02-06] MEDS: ASPIRIN 81 MG TABLET, ENT COATED PO SCH (10:07)
[2017-02-06] MEDS: GABAPENTIN 300 MG CAPSULE PO SCH ×2 (10:08→23:08)
[2017-02-06] MEDS: LANSOPRAZOLE 15 MG TAB.RAP.DR PO SCH ×2 (10:08→17:29)
[2017-02-06] MEDS: METOPROLOL SUCCINATE 25 MG TAB.SR.24H PO SCH (10:08)
[2017-02-06] MEDS: FLUCONAZOLE 100 MG TABLET PO SCH (10:09)
[2017-02-06] MEDS: FAMOTIDINE 20 MG TABLET PO SCH ×2 (10:09→23:09)
[2017-02-06] MEDS: LORATADINE 10 MG TABLET PO SCH (10:09)
[2017-02-06] MEDS: DEXAMETHASONE 4 MG TABLET PO SCH ×2 (10:09→17:29)
[2017-02-06] MEDS: NYSTATIN/DEXAMETH/DIPHEN SUSP 120 ML PO SCH ×3 (10:10→17:31)
[2017-02-06] MEDS: INSULIN GLARGINE,HUM.REC.ANLOG 300 UNIT/3 ML INSULN.PEN SUBCUT SCH ×2 (10:10→23:10)
--- NOTE | 2017-02-06 11:47 | PDOC PROGRESS REPORT ---
Subjective Progress Note for:: 02/06/17 Subjective:: Patient is feeling much weaker and a very imbalance. Patient's denied any chest pain denied any shortness of the breath Patient's heart rate is currently stable Patient's otherwise no other events happened but definitely after progressing with the radiations patient is feeling much weaker and much worse compared to the last week Very extensive discussions with the [id number] and the patient's and the patient about the current conditions discussed all options about the hospice situations versus rehab Physical Exam Vital Signs: Temp Pulse Resp BP Pulse Ox 99.2 F 77 18 101/57 L 97 02/06/17 07:33 02/06/17 07:33 02/06/17 07:33 02/06/17 07:33 02/06/17 07:33 Intake & Output 02/05/17 02/06/17 02/07/17 06:59 06:59 06:59 Intake Total 1414 Output Total 1740 Balance -326 Weight 81.4 kg General appearance: PRESENT: no acute distress Head exam: PRESENT: atraumatic, normocephalic Eye exam: PRESENT: conjunctiva pink, EOMI, PERRLA. ABSENT: scleral icterus Ear exam: PRESENT: normal external ear exam Mouth exam: PRESENT: moist, tongue midline Neck exam: PRESENT: full ROM. ABSENT: carotid bruit, JVD, lymphadenopathy, thyromegaly Respiratory exam: PRESENT: clear to auscultation concetta Cardiovascular exam: PRESENT: RRR. ABSENT: diastolic murmur, rubs, systolic murmur Pulses: PRESENT: normal dorsalis pedis pul, +2 pedal pulses bilateral Vascular exam: PRESENT: normal capillary refill GI/Abdominal exam: PRESENT: normal bowel sounds, soft. ABSENT: distended, guarding, mass, organolmegaly, rebound, tenderness Rectal exam: PRESENT: deferred Extremities exam: ABSENT: pedal edema Neurological exam: PRESENT: alert, awake, oriented to person. ABSENT: motor sensory deficit Psychiatric exam: PRESENT: appropriate affect, depressed, normal mood. ABSENT: homicidal ideation, suicidal ideation Skin exam: PRESENT: dry, intact, warm. ABSENT: cyanosis, rash Results Laboratory Results: 02/04/17 04:14 02/06/17 08:39 02/06/17 08:39 Sodium 132.7 L Potassium 4.9 Chloride 95 L Carbon Dioxide 24 Anion Gap 14 BUN 43 H Creatinine 1.13 Est GFR ( Amer) > 60 Est GFR (Non-Af Amer) > 60 Glucose 304 H Calcium 8.8 02/03/17 16:58 Catheter Tip - Picc Line Catheter Tip Culture - Final NO GROWTH 3 DAYS 02/01/17 01:35 Blood Blood Culture - Final NO GROWTH IN 5 DAYS Impressions: Chest X-Ray 01/31/17 21:36 IMPRESSION: Extensive pleural and parenchymal changes in the left lung which appear to be stable from the previous exam. Head CT 01/31/17 23:56 IMPRESSION: CHRONIC CHANGES OF ATROPHY AND MICROVASCULAR ISCHEMIA. Metastatic disease as noted above. Lytic lesion in the occipital region of the bony calvaria to the right of midline. Other findings as noted above EVIDENCE OF ACUTE STROKE: NO. 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 Plunkett (6) Chronic obstructive pulmonary disease Qualifiers: COPD type: unspecified COPD Qualified Code(s): J44.9 - Chronic obstructive pulmonary disease, unspecified Is this a current diagnosis for this admission?: Yes Plan: Continues to nebulizer treatments (7) Coronary artery disease Qualifiers: Coronary Disease-Associated Artery/Lesion type: unspecified vessel or lesion type Is this a current diagnosis for this admission?: Yes Plan: Currently all stable (8) Postobstructive pneumonia Is this a current diagnosis for this admission?: Yes Plan: Continues IV cefepime (9) Type 2 diabetes mellitus Qualifiers: Diabetes mellitus complication status: with unspecified complications 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: without terminal gauger supervisor use Qualified Code( s): E11.8 - Type 2 diabetes mellitus with unspecified complications Is this a current diagnosis for this admission?: Yes Plan: Continues a sliding scale and increase the Lantus 35 units and discussed with the patient and the family do not eat any donuts (11) Sepsis Qualifiers: Sepsis type: sepsis due to unspecified organism Qualified Code(s): A41.9 - Sepsis, unspecified organism Is this a current diagnosis for this admission?: Yes Plan: Will DC the PICC line and send tip for the culture patient is currently afebrile white count is normal may be just a contaminated we will waiting for the peripheral culture and continues to IV antibiotic - Time Time Spent with patient: 25-34 minutes Medications reviewed and adjusted accordingly: Yes Anticipated discharge: Other Within: Other - Inpatient Certification Medical Necessity: Need Close Monitoring Due to Risk of Patient Decompensation, Need for IV Antibiotics Post Hospital Care: D/C Talent Acquisition Partner Documentation - Plan Summary Plan Summary: Very extensive discussions with the patient's and the patient's family about current situations and patient's current conditions discussed with the oncology and pretty much appropriate to go to the rehab and even the hospice care
[2017-02-06] MEDS: INSULIN LISPRO 100 UNIT/ML 3 ML VIAL SUBCUT PRN ×3 (12:19→23:10)
[2017-02-06] MEDS: CLINDAMYCIN HCL 150 MG CAPSULE PO SCH ×2 (12:20→17:29)
[2017-02-06] MEDS: TAMSULOSIN HCL 0.4 MG CAP.SR.24H PO SCH (23:09)
[2017-02-06] MEDS: ATORVASTATIN CALCIUM 20 MG TABLET PO SCH (23:10)
[2017-02-07] MEDS: CLINDAMYCIN HCL 150 MG CAPSULE PO SCH ×5 (00:52→23:19)
[2017-02-07] MEDS: OXYCODONE HCL IR 5 MG TABLET PO PRN ×2 (00:56→08:41)
[2017-02-07] MEDS: LEVALBUTEROL HCL NEB 0.63 MG/3 ML AMPUL NEB SCH ×4 (02:09→20:12)
[2017-02-07 05:26] LABS: HEMATOCRIT 30.4 % (37.9-51.0); HEMOGLOBIN 10.7 g/dL (13.5-17.0); HGB HCT DIFFERENCE 1.7; MEAN CORPUSCULAR HEMOGLOBIN 32.7 pg (27.0-33.4); MEAN CORPUSCULAR HGB CONC 35.1 g/dL (32.0-36.0); MEAN CORPUSCULAR VOLUME 93 fl (80-97); RED BLOOD COUNT 3.26 10^6/uL (4.35-5.55); RED CELL DISTRIBUTION WIDTH 14.7 % (11.5-14.0); WHITE BLOOD COUNT 5.7 10^3/uL (4.0-10.5)
[2017-02-07 05:51] LABS: ANION GAP 16 (5-19); BLOOD UREA NITROGEN 48 mg/dL (7-20); CALCIUM 8.9 mg/dL (8.4-10.2); CARBON DIOXIDE 21 mmol/L (22-30); CHLORIDE 96 mmol/L (98-107); CREATININE RESULT 1.04 mg/dL (0.52-1.25); GLUCOSE 245 mg/dL (75-110); POTASSIUM 4.9 mmol/L (3.6-5.0); SODIUM 133.1 mmol/L (137-145)
[2017-02-07 06:37] LABS: BASOPHILS % (MANUAL) 0 % (0-2); EOSINOPHILS % (MANUAL) 0 % (0-6); LYMPHOCYTES % (MANUAL) 7 % (13-45); TOTAL CELLS COUNTED 100
[2017-02-07 06:41] LABS: ANISOCYTOSIS SLIGHT; OVALOCYTES SLIGHT; PLATELET CLUMPS PRESENT; POIKILOCYTOSIS SLIGHT; POLYCHROMASIA SLIGHT; TOXIC GRANULATION SLIGHT
--- NOTE | 2017-02-07 07:27 | RADIOLOGY REPORT (SQ) ---
EXAM DESCRIPTION: CT HEAD WITHOUT COMPLETED DATE/TIME: 02/07/2017 7:12 am REASON FOR STUDY: Due to fall COMPARISON: 02/01/2017. MRI, 01/23/2017. TECHNIQUE: Axial images acquired through the brain without intravenous contrast. Images reviewed wi th bone, brain and subdural windows. Images stored on PACS. All CT scanners at this facility use dose modulation, iterative reconstruction, and/or weight based d osing when appropriate to reduce radiation dose to as low as reasonably achievable (ALARA). [facility]: Dose Right [facility]: CareDose [facility]: Dose Right [facility]: Teradose 4D [facility]: Smart Browsarity RADIATION DOSE: Up-to-date CT equipment and radiation dose reduction techniques were employed. CTDIv ol: 49.0 mGy. DLP: 881 mGy-cm. mGy. LIMITATIONS: None. FINDINGS: VENTRICLES: Normal size and contour. CEREBRUM: Low-attenuation lesion of the left mid parietal lobe. Mild white matter microangiopathy. Mild cerebral volume loss. 0.8 cm lesion of the left external capsule, image 19 of series 2. Findin gs consistent with previous abnormal MRI, 01/23/2017. CEREBELLUM: No masses. No hemorrhage. No alteration of density. No evidence for acute infarction. EXTRAAXIAL SPACES: No fluid collections. No masses. ORBITS AND GLOBE: No intra- or extraconal masses. Normal contour of globe without masses. CALVARIUM: 2.7 cm ovoid lesion with bony lie cysts of the right paracentral occipital calvarium. PARANASAL SINUSES: No fluid or mucosal thickening. SOFT TISSUES: No mass or hematoma. OTHER: No other significant finding. IMPRESSION: No acute findings. No significant interval change of multiple partially imaged lesions consistent with prior MRI, 01/23/2017. EVIDENCE OF ACUTE STROKE: NO. COMMENT: Quality ID # [id number]: Final reports with documentation of one or more dose reduction techniques (e.g., Automated exposure control, adjustment of the mA and/or kV according to patient size, use of iterative reconstruction technique) TECHNICAL DOCUMENTATION: JOB ID: [id number] [employer]- All Rights Reserved
[2017-02-07] MEDS: LANSOPRAZOLE 15 MG TAB.RAP.DR PO SCH ×2 (08:18→17:43)
[2017-02-07] MEDS: INSULIN LISPRO 100 UNIT/ML 3 ML VIAL SUBCUT PRN ×4 (08:18→23:17)
[2017-02-07] MEDS: INSULIN GLARGINE,HUM.REC.ANLOG 300 UNIT/3 ML INSULN.PEN SUBCUT SCH ×2 (08:18→23:17)
--- NOTE | 2017-02-07 08:47 | PDOC PROGRESS REPORT ---
Subjective Progress Note for:: 02/07/17 Subjective:: Patient is currently doing fairPatient have episode of the fall this morning and a small injury on the left side of the neck area but patient's denied any pain Patient have a CT head of the brain done was negative for any acute finding Patient actually feeling much better compared to yesterday more alert awake Discussed with the patient and the family were extensively decided to go to the rehab once the patient's done with the radiations Physical Exam Vital Signs: Temp Pulse Resp BP Pulse Ox 97.5 F 88 18 121/84 100 02/07/17 08:18 02/07/17 08:18 02/07/17 08:18 02/07/17 08:18 02/07/17 08:18 Intake & Output 02/06/17 02/07/17 02/08/17 06:59 06:59 06:59 Intake Total 1414 277 Output Total 1740 0 Balance -326 277 Weight 81.4 kg 81.8 kg General appearance: PRESENT: no acute distress, well-developed, well-nourished Head exam: PRESENT: atraumatic, normocephalic Eye exam: PRESENT: conjunctiva pink, EOMI, PERRLA. ABSENT: scleral icterus Ear exam: PRESENT: normal external ear exam Mouth exam: PRESENT: moist, tongue midline Neck exam: PRESENT: full ROM. ABSENT: carotid bruit, JVD, lymphadenopathy, thyromegaly Respiratory exam: PRESENT: clear to auscultation concetta Cardiovascular exam: PRESENT: RRR. ABSENT: diastolic murmur, rubs, systolic murmur Pulses: PRESENT: normal dorsalis pedis pul, +2 pedal pulses bilateral Vascular exam: PRESENT: normal capillary refill GI/Abdominal exam: PRESENT: normal bowel sounds, soft. ABSENT: distended, guarding, mass, organolmegaly, rebound, tenderness Rectal exam: PRESENT: deferred Extremities exam: ABSENT: pedal edema Musculoskeletal exam: PRESENT: ambulatory Neurological exam: PRESENT: alert, awake, oriented to person, oriented to place , oriented to time, oriented to situation, CN II-XII grossly intact. ABSENT: motor sensory deficit Psychiatric exam: PRESENT: appropriate affect, normal mood. ABSENT: homicidal ideation, suicidal ideation Skin exam: PRESENT: dry, intact, warm. ABSENT: cyanosis, rash Results Laboratory Results: 02/07/17 03:54 02/07/17 03:54 02/06/17 02/07/17 02/07/17 08:39 03:54 03:54 WBC 5.7 RBC 3.26 L Hgb 10.7 L Hct 30.4 L MCV 93 MCH 32.7 MCHC 35.1 RDW 14.7 H Plt Count 133 L Seg Neutrophils % Not Reportable Lymphocytes % Not Reportable Monocytes % Not Reportable Eosinophils % Not Reportable Basophils % Not Reportable Absolute Neutrophils Not Reportable Absolute Lymphocytes Not Reportable Absolute Monocytes Not Reportable Absolute Eosinophils Not Reportable Absolute Basophils Not Reportable Sodium 132.7 L 133.1 L Potassium 4.9 4.9 Chloride 95 L 96 L Carbon Dioxide 24 21 L Anion Gap 14 16 BUN 43 H 48 H Creatinine 1.13 1.04 Est GFR ( Amer) > 60 > 60 Est GFR (Non-Af Amer) > 60 > 60 Glucose 304 H 245 H Calcium 8.8 8.9 02/01/17 06:32 Blood Blood Culture - Final Staphylococcus Epidermidis 02/01/17 01:35 Blood Blood Culture - Final NO GROWTH IN 5 DAYS 02/03/17 16:58 Catheter Tip - Picc Line Catheter Tip Culture - Final NO GROWTH 3 DAYS Impressions: Chest X-Ray 01/31/17 21:36 IMPRESSION: Extensive pleural and parenchymal changes in the left lung which appear to be stable from the previous exam. Head CT 02/07/17 00:00 IMPRESSION: No acute findings. No significant interval change of multiple partially imaged lesions consistent with prior MRI, 01/23/2017. EVIDENCE OF ACUTE STROKE: NO. 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 Plunkett (6) Chronic obstructive pulmonary disease Qualifiers: COPD type: unspecified COPD Qualified Code(s): J44.9 - Chronic obstructive pulmonary disease, unspecified Is this a current diagnosis for this admission?: Yes Plan: Continues to nebulizer treatments (7) Coronary artery disease Qualifiers: Coronary Disease-Associated Artery/Lesion type: unspecified vessel or lesion type Is this a current diagnosis for this admission?: Yes Plan: Currently all stable (8) Postobstructive pneumonia Is this a current diagnosis for this admission?: Yes Plan: Continues IV cefepime (9) Type 2 diabetes mellitus Qualifiers: Diabetes mellitus complication status: with unspecified complications Diabetes mellitus care home insulin use: without care home use Qualified Code( s): E11.8 - Type 2 diabetes mellitus with unspecified complications Is this a current diagnosis for this admission?: Yes Plan: Continues a sliding scale and increase the Lantus 35 units and discussed with the patient and the family do not eat any donuts (11) Sepsis Qualifiers: Sepsis type: sepsis due to unspecified organism Qualified Code(s): A41.9 - Sepsis, unspecified organism Is this a current diagnosis for this admission?: Yes Plan: Will DC the PICC line and send tip for the culture patient is currently afebrile white count is normal may be just a contaminated we will waiting for the peripheral culture and continues to IV antibiotic - Time Time Spent with patient: 15-24 minutes Medications reviewed and adjusted accordingly: Yes Anticipated discharge: SNF Within: within 24 hours - Inpatient Certification Medical Necessity: Need Close Monitoring Due to Risk of Patient Decompensation, Need for IV Antibiotics Post Hospital Care: D/C Promotions Associate Documentation - Plan Summary Plan Summary: Continues to current medications fall precautions and very extensive discussions with the patient and the family
--- NOTE | 2017-02-07 08:57 | PDOC PROGRESS REPORT ---
Subjective Progress Note for:: 02/07/17 Subjective:: Patient seems much better this morning, more alert and awake feeling better. Physical Exam Vital Signs: Temp Pulse Resp BP Pulse Ox 97.5 F 88 18 121/84 100 02/07/17 08:18 02/07/17 08:18 02/07/17 08:18 02/07/17 08:18 02/07/17 08:18 Intake & Output 02/06/17 02/07/17 02/08/17 06:59 06:59 06:59 Intake Total 1414 277 Output Total 1740 0 Balance -326 277 Weight 81.4 kg 81.8 kg General appearance: PRESENT: no acute distress, well-developed, well-nourished Head exam: PRESENT: atraumatic, normocephalic Eye exam: PRESENT: conjunctiva pink, EOMI, PERRLA. ABSENT: scleral icterus Ear exam: PRESENT: normal external ear exam Mouth exam: PRESENT: moist, tongue midline Neck exam: ABSENT: carotid bruit, JVD, lymphadenopathy, thyromegaly Respiratory exam: PRESENT: clear to auscultation concetta. ABSENT: rales, rhonchi, wheezes Cardiovascular exam: PRESENT: RRR. ABSENT: diastolic murmur, rubs, systolic murmur Pulses: PRESENT: normal dorsalis pedis pul Vascular exam: PRESENT: normal capillary refill GI/Abdominal exam: PRESENT: normal bowel sounds, soft. ABSENT: distended, guarding, mass, organolmegaly, rebound, tenderness Rectal exam: PRESENT: deferred Extremities exam: PRESENT: full ROM. ABSENT: calf tenderness, clubbing, pedal edema Neurological exam: PRESENT: alert, awake, oriented to person, oriented to place , oriented to time, oriented to situation, CN II-XII grossly intact. ABSENT: motor sensory deficit Psychiatric exam: PRESENT: appropriate affect, normal mood. ABSENT: homicidal ideation, suicidal ideation Skin exam: PRESENT: dry, intact, warm. ABSENT: cyanosis, rash Results Laboratory Results: 02/07/17 03:54 02/07/17 03:54 02/06/17 02/07/17 02/07/17 08:39 03:54 03:54 WBC 5.7 RBC 3.26 L Hgb 10.7 L Hct 30.4 L MCV 93 MCH 32.7 MCHC 35.1 RDW 14.7 H Plt Count 133 L Seg Neutrophils % Not Reportable Lymphocytes % Not Reportable Monocytes % Not Reportable Eosinophils % Not Reportable Basophils % Not Reportable Absolute Neutrophils Not Reportable Absolute Lymphocytes Not Reportable Absolute Monocytes Not Reportable Absolute Eosinophils Not Reportable Absolute Basophils Not Reportable Sodium 132.7 L 133.1 L Potassium 4.9 4.9 Chloride 95 L 96 L Carbon Dioxide 24 21 L Anion Gap 14 16 BUN 43 H 48 H Creatinine 1.13 1.04 Est GFR ( Amer) > 60 > 60 Est GFR (Non-Af Amer) > 60 > 60 Glucose 304 H 245 H Calcium 8.8 8.9 02/01/17 06:32 Blood Blood Culture - Final Staphylococcus Epidermidis 02/01/17 01:35 Blood Blood Culture - Final NO GROWTH IN 5 DAYS 02/03/17 16:58 Catheter Tip - Picc Line Catheter Tip Culture - Final NO GROWTH 3 DAYS Impressions: Chest X-Ray 01/31/17 21:36 IMPRESSION: Extensive pleural and parenchymal changes in the left lung which appear to be stable from the previous exam. Head CT 02/07/17 00:00 IMPRESSION: No acute findings. No significant interval change of multiple partially imaged lesions consistent with prior MRI, 01/23/2017. EVIDENCE OF ACUTE STROKE: NO. 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 We would not plan any further consideration of therapy until he is discharged from rehab and stronger. Ultimately we had a long discussion, if he does not improve from rehab stay and worsens over that time period, we would then discuss comfort measures. But at present I believe it is reasonable for him to go to rehab to see if he can get stronger post radiation therapy to the brain. (2) Pain, neoplasm-related Is this a current diagnosis for this admission?: Yes Plan: Continue with current therapy, he will need oxycodone only intermittently at present. - Time Time Spent with patient: 35 or more minutes Critical Time spent with patient: 35 or more minutes - Inpatient Certification Based on my medical assessment, after consideration of the patient's comorbidities, presenting symptoms, or acuity I expect that the services needed warrant INPATIENT care.: Yes I certify that my determination is in accordance with my understanding of Medicare's requirements for reasonable and necessary INPATIENT services [42 CFR 412.3e].: Yes Medical Necessity: Risk of Complication if Not Cared For in Hospital
[2017-02-07] MEDS: NYSTATIN/DEXAMETH/DIPHEN SUSP 120 ML PO SCH ×3 (10:54→17:45)
[2017-02-07] MEDS ORDERED: DOCUSATE SODIUM 100 MG CAPSULE PO ONE (11:00)
[2017-02-07] MEDS: DEXAMETHASONE 4 MG TABLET PO SCH ×2 (11:10→17:44)
[2017-02-07] MEDS: GABAPENTIN 300 MG CAPSULE PO SCH ×2 (11:11→22:16)
[2017-02-07] MEDS: FAMOTIDINE 20 MG TABLET PO SCH ×2 (11:11→22:17)
[2017-02-07] MEDS: METOPROLOL SUCCINATE 25 MG TAB.SR.24H PO SCH (11:11)
[2017-02-07] MEDS: FLUCONAZOLE 100 MG TABLET PO SCH (11:12)
[2017-02-07] MEDS: POLYETHYLENE GLYCOL 3350 POWDER 17 GM/1 PACKET PO PRN (11:12)
[2017-02-07] MEDS: ASPIRIN 81 MG TABLET, ENT COATED PO SCH (11:12)
[2017-02-07] MEDS: LORATADINE 10 MG TABLET PO SCH (11:12)
[2017-02-07] MEDS: DILTIAZEM HCL 30 MG TABLET PO SCH ×2 (11:13→22:16)
[2017-02-07] MEDS: DOCUSATE SODIUM 100 MG CAPSULE PO SCH (17:44)
[2017-02-07] MEDS: ATORVASTATIN CALCIUM 20 MG TABLET PO SCH (22:16)
[2017-02-07] MEDS: TAMSULOSIN HCL 0.4 MG CAP.SR.24H PO SCH (22:17)
[2017-02-08] MEDS: LEVALBUTEROL HCL NEB 0.63 MG/3 ML AMPUL NEB SCH ×3 (01:54→13:57)
[2017-02-08] MEDS: CLINDAMYCIN HCL 150 MG CAPSULE PO SCH ×2 (06:01→12:21)
[2017-02-08] MEDS: LANSOPRAZOLE 15 MG TAB.RAP.DR PO SCH (08:20)
[2017-02-08] MEDS: INSULIN LISPRO 100 UNIT/ML 3 ML VIAL SUBCUT PRN ×2 (08:20→12:21)
[2017-02-08] MEDS: NYSTATIN/DEXAMETH/DIPHEN SUSP 120 ML PO SCH ×2 (08:21→12:22)
--- NOTE | 2017-02-08 08:22 | PDOC PROGRESS REPORT ---
Subjective Progress Note for:: 02/08/17 Subjective:: No acute events overnight, patient seems stable this morning Physical Exam Vital Signs: Temp Pulse Resp BP Pulse Ox 97.8 F 81 16 112/78 100 02/08/17 05:20 02/08/17 07:00 02/08/17 05:20 02/08/17 05:20 02/08/17 05:20 Intake & Output 02/07/17 02/08/17 02/09/17 06:59 06:59 06:59 Intake Total 277 490 Output Total 0 900 Balance 277 -410 Weight 81.8 kg 81 kg General appearance: PRESENT: no acute distress, well-developed, well-nourished Head exam: PRESENT: atraumatic, normocephalic Eye exam: PRESENT: conjunctiva pink, EOMI, PERRLA. ABSENT: scleral icterus Ear exam: PRESENT: normal external ear exam Mouth exam: PRESENT: moist, tongue midline Neck exam: ABSENT: carotid bruit, JVD, lymphadenopathy, thyromegaly Respiratory exam: PRESENT: clear to auscultation concetta. ABSENT: rales, rhonchi, wheezes Cardiovascular exam: PRESENT: RRR. ABSENT: diastolic murmur, rubs, systolic murmur Pulses: PRESENT: normal dorsalis pedis pul Vascular exam: PRESENT: normal capillary refill GI/Abdominal exam: PRESENT: normal bowel sounds, soft. ABSENT: distended, guarding, mass, organolmegaly, rebound, tenderness Rectal exam: PRESENT: deferred Extremities exam: PRESENT: full ROM. ABSENT: calf tenderness, clubbing, pedal edema Neurological exam: PRESENT: alert, awake, oriented to person, oriented to place , oriented to time, oriented to situation, CN II-XII grossly intact. ABSENT: motor sensory deficit Psychiatric exam: PRESENT: appropriate affect, normal mood. ABSENT: homicidal ideation, suicidal ideation Skin exam: PRESENT: dry, intact, warm. ABSENT: cyanosis, rash Results Laboratory Results: 02/07/17 03:54 02/07/17 03:54 02/02/17 10:35 Blood Blood Culture - Final NO GROWTH IN 5 DAYS 02/02/17 09:08 Blood Blood Culture - Final NO GROWTH IN 5 DAYS Impressions: Chest X-Ray 01/31/17 21:36 IMPRESSION: Extensive pleural and parenchymal changes in the left lung which appear to be stable from the previous exam. Head CT 02/07/17 00:00 IMPRESSION: No acute findings. No significant interval change of multiple partially imaged lesions consistent with prior MRI, 01/23/2017. EVIDENCE OF ACUTE STROKE: NO. 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 (2) Pain, neoplasm-related Is this a current diagnosis for this admission?: Yes Plan: Continue with oxycodone as needed - Time Time Spent with patient: 15-24 minutes Critical Time spent with patient: 15-24 minutes
[2017-02-08] MEDS ORDERED: OXYCODONE HCL IR 5 MG TABLET PO PRN (08:52)
[2017-02-08] MEDS ORDERED: INSULIN GLARGINE,HUM.REC.ANLOG 300 UNIT/3 ML INSULN.PEN SUBCUT ONE (09:30)
[2017-02-08] MEDS: FAMOTIDINE 20 MG TABLET PO SCH (09:51)
[2017-02-08] MEDS: POLYETHYLENE GLYCOL 3350 POWDER 17 GM/1 PACKET PO PRN (09:51)
[2017-02-08] MEDS: GABAPENTIN 300 MG CAPSULE PO SCH (09:51)
[2017-02-08] MEDS: FLUCONAZOLE 100 MG TABLET PO SCH (09:51)
[2017-02-08] MEDS: METOPROLOL SUCCINATE 25 MG TAB.SR.24H PO SCH (09:52)
[2017-02-08] MEDS: ASPIRIN 81 MG TABLET, ENT COATED PO SCH (09:52)
[2017-02-08] MEDS: DOCUSATE SODIUM 100 MG CAPSULE PO SCH (09:52)
[2017-02-08] MEDS: DEXAMETHASONE 4 MG TABLET PO SCH (09:52)
[2017-02-08] MEDS: DILTIAZEM HCL 30 MG TABLET PO SCH (09:52)
[2017-02-08] MEDS: LORATADINE 10 MG TABLET PO SCH (09:52)
--- NOTE | 2017-02-08 12:43 | PDOC TRANSFER SUMMARY ---
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 Is this a current diagnosis for this admission?: Yes Summary: Patient is just finished the brain radiations follow-up outpatients oncology in 2 weeks (5) Atrial fibrillation Is this a current diagnosis for this admission?: Yes Summary: Currently on rate control not a good candidate for an anticoagulations due to the hypervascularity to the recent brain radiation's and a history of a more frequent fall (6) Chronic obstructive pulmonary disease Is this a current diagnosis for this admission?: Yes Summary: Continues on Xopenex nebulizer (7) Coronary artery disease Is this a current diagnosis for this admission?: Yes Summary: Currently stable patient see Dr. keen as outpatient (8) Postobstructive pneumonia Is this a current diagnosis for this admission?: Yes Summary: [facility] (9) Type 2 diabetes mellitus Is this a current diagnosis for this admission?: Yes Summary: stable (10) Weight loss Summary: stable (11) Sepsis Is this a current diagnosis for this admission?: Yes Summary: resolved - Additional Information Resuscitation Status: Do Not Resuscitate Discharge Diet: Cardiac, Diabetic Discharge Activity: Activity As Tolerated Home Medications: Aspirin [Aspirin EC] 81 mg PO DAILY 02/01/17 Atorvastatin Calcium [Lipitor 20 mg Tablet] 20 mg PO DAILY 02/01/17 Gabapentin [Neurontin 300 mg Capsule] 600 mg PO Q12 02/01/17 Loratadine [Claritin 10 mg Tablet] 10 mg PO DAILY 02/01/17 Metoprolol Succinate [Toprol Xl 25 mg Tab.sr] 25 mg PO DAILY 02/01/17 Nitroglycerin [Nitrostat 0.4 mg (1/150 Gr) Tabs 25/Bottle] 0.4 mg PO Q5MP PRN 11 /01/17 Omeprazole 20 mg PO BID 02/01/17 Tamsulosin HCl [Flomax 0.4 mg Cap.sr] 0.4 mg PO DAILY 02/01/17 Dexamethasone [Decadron 4 mg Tablet] 4 mg PO DAILY 5 Days #14 02/07/17 Diltiazem HCl [Cardizem 30 mg Tablet] 30 mg PO Q12 #60 tablet 02/07/17 Doxycycline Monohydrate 100 mg PO BID #14 tablet 02/07/17 Famotidine [Pepcid 20 mg Tablet] 20 mg PO Q12 #60 tablet 02/07/17 Fluconazole [Diflucan 100 mg Tablet] 100 mg PO DAILY #5 tablet 02/07/17 Insulin Glargine,Hum.rec.anlog [Lantus Insulin 100 Unit/mL] 20 unit SUBCUT QAM # 1 insuln.pen 02/07/17 Insulin Glargine,Hum.rec.anlog [Lantus Insulin 100 Unit/mL] 40 unit SUBCUT QHS # 1 insuln.pen 02/07/17 Insulin Lispro [Humalog Insulin (Lispro) 100 unit/mL] 0 - 12 unit SUBCUT [id number] PRN #1 unit 02/07/17 Levalbuterol HCl [Xopenex Neb 0.63 mg/3 ml Ampul] 0.63 mg NEB RTQ6 #1 vial.neb 02/07/17 Oxycodone HCl [Oxy-Ir 5 mg Tablet] 10 mg PO Q6HP PRN #40 tablet 02/07/17 Polyethylene Glycol 3350 [Miralax Powder 17 gm/Packet] 17 gm PO DAILYP PRN #30 powd.pack 02/07/17 History of Present Illness Admission Date/PCP: 02/01/17 01:12 TESSY CLEMENT MD History of Present Illness: 66-year-old male with history of stage IV lung cancer with brain metastases noted to have sacral decubitus ulcers noted for the past week. On this admission patient was made DNR status. Hospital Course Hospital Course: This 66-year-old maleWith a significant history of the stage IV lung cancer with recently diagnosed with the brain metastases with more lesion and patient was seen at the [facility] and the patient's failed immunotherapyPatients came to the emergency department because of the not feeling well and patient's blood sugar was running highPatient's admitting in the hospital and diagnosed with a dehydration and hyponatremia patients treated appropriately with IV fluid and patient's insulin adjusted Since continues in the brain radiations Patient's otherwise getting more weaker and weaker patients have a more imbalance with all this bring radiations have a several CT scan done which is nothing change acute findingAt this point patient's very extensive discussions with the patient and the family decided to send to the rehab for further evaluations Patient also have a history of the chronic A. fib seen by the sql consultant here and suggested continues the beta-parish and added the Cardizem but patient is not a candidate for an anticoagulations due to the high risk for the following in the recent brain radiations Patient's continues to 81 mg aspirin Patient seen by oncology and suggest a follow outpatient in 2 weeks patient's doing well he will discuss about the other options Since last 3 months patient's condition is more getting worse patient's lost more than 30 pounds and the patient's failed to the chemotherapy and immunotherapy and patient have a lung surgery was donePast Patient no ongoing postObstructive pneumonia versus possible new lesion treated appropriately with antibiotic and seen by the pulmonary Overall condition is very poor with the extreme poor prognosis with a stage IV Lung cancer with the brain metastases and metastases in the boneAnd discussed with the patient and the family with the patient is currently DNR/DNI and discussed with the hospice care versus rehab Patient and family decided to go to the rehab and see how the patient's does for the next couple weeks and if the patient's doing well follow with the oncology and discuss further options otherwise of the patient's getting worsePatient's met with the hospice care at that point Patient had a fall precautions Physical Exam Vital Signs: Temp Pulse Resp BP Pulse Ox 97.8 F 98 18 112/73 97 02/07/17 11:53 02/07/17 11:53 02/07/17 11:53 02/07/17 11:53 02/07/17 11:53 Intake & Output 02/06/17 02/07/17 02/08/17 06:59 06:59 06:59 Intake Total 1414 277 90 Output Total 1740 0 Balance -326 277 90 Weight 81.4 kg 81.8 kg General appearance: PRESENT: no acute distress, thin, well-nourished Head exam: PRESENT: atraumatic, normocephalic Eye exam: PRESENT: conjunctiva pink, EOMI, PERRLA. ABSENT: scleral icterus Ear exam: PRESENT: normal external ear exam Mouth exam: PRESENT: moist, tongue midline Neck exam: ABSENT: carotid bruit, JVD, lymphadenopathy, thyromegaly Respiratory exam: PRESENT: clear to auscultation concetta. ABSENT: rales, rhonchi, wheezes Cardiovascular exam: PRESENT: RRR. ABSENT: diastolic murmur, rubs, systolic murmur Pulses: PRESENT: normal dorsalis pedis pul Vascular exam: PRESENT: normal capillary refill GI/Abdominal exam: PRESENT: normal bowel sounds, soft. ABSENT: distended, guarding, mass, organolmegaly, rebound, tenderness Rectal exam: PRESENT: deferred Extremities exam: PRESENT: full ROM. ABSENT: calf tenderness, clubbing, pedal edema Neurological exam: PRESENT: alert, awake, oriented to person, oriented to place , oriented to time, oriented to situation, CN II-XII grossly intact. ABSENT: motor sensory deficit Psychiatric exam: PRESENT: appropriate affect, normal mood. ABSENT: homicidal ideation, suicidal ideation Skin exam: PRESENT: dry, intact, warm. ABSENT: cyanosis, rash Results Laboratory Results: 02/07/17 03:54 02/07/17 03:54 02/07/17 02/07/17 03:54 03:54 WBC 5.7 RBC 3.26 L Hgb 10.7 L Hct 30.4 L MCV 93 MCH 32.7 MCHC 35.1 RDW 14.7 H Plt Count 133 L Seg Neutrophils % Not Reportable Lymphocytes % Not Reportable Monocytes % Not Reportable Eosinophils % Not Reportable Basophils % Not Reportable Absolute Neutrophils Not Reportable Absolute Lymphocytes Not Reportable Absolute Monocytes Not Reportable Absolute Eosinophils Not Reportable Absolute Basophils Not Reportable Sodium 133.1 L Potassium 4.9 Chloride 96 L Carbon Dioxide 21 L Anion Gap 16 BUN 48 H Creatinine 1.04 Est GFR ( Amer) > 60 Est GFR (Non-Af Amer) > 60 Glucose 245 H Calcium 8.9 02/02/17 10:35 Blood Blood Culture - Final NO GROWTH IN 5 DAYS 02/02/17 09:08 Blood Blood Culture - Final NO GROWTH IN 5 DAYS 02/01/17 06:32 Blood Blood Culture - Final Staphylococcus Epidermidis 02/01/17 01:35 Blood Blood Culture - Final NO GROWTH IN 5 DAYS 02/03/17 16:58 Catheter Tip - Picc Line Catheter Tip Culture - Final NO GROWTH 3 DAYS Impressions: Chest X-Ray 01/31/17 21:36 IMPRESSION: Extensive pleural and parenchymal changes in the left lung which appear to be stable from the previous exam. Head CT 02/07/17 00:00 IMPRESSION: No acute findings. No significant interval change of multiple partially imaged lesions consistent with prior MRI, 01/23/2017. EVIDENCE OF ACUTE STROKE: NO. Transfer Plan - Time Spent with Patient Time spent with patient: Greater than 30 Minutes Plan Time Spent: Greater than 30 Minutes - Very extensive discussed with the patient and the family and discussed with the oncology and other coordinate care with other physicians patient at this point discharge to the rehab and continues to physical therapy and fall precautions and follow oncology as outpatient
[2017-02-08 15:28] VITALS: BP 131/81
[2017-02-09] MEDS ORDERED: INSULIN GLARGINE,HUM.REC.ANLOG 300 UNIT/3 ML INSULN.PEN SUBCUT SCH (08:00)
== END 2017-02-08 15:39 | DRG 640 ==
LOC: ER 20:48 → EH 02-01 01:12 → OBSVTOIN 02-01 01:12 → EH 02-01 01:17 → UNDOADMOB 02-01 01:17 → 3N 02-01 03:48
PROVIDERS: ADMIT Family Medicine; ATTEND Family Medicine
DX: E87.1 Hypo-osmolality and hyponatremia (principal); J18.9 Pneumonia, unspecified organism; C79.31 Secondary malignant neoplasm of brain; C79.51 Secondary malignant neoplasm of bone; C34.92 Malignant neoplasm of unspecified part of left bronchus or lung; J44.0 Chronic obstructive pulmonary disease with (acute) lower respiratory infection; I10 Essential (primary) hypertension; L89.151 Pressure ulcer of sacral region, stage 1; E86.0 Dehydration; G89.3 Neoplasm related pain (acute) (chronic); Z66 Do not resuscitate; I48.0 Paroxysmal atrial fibrillation; E11.65 Type 2 diabetes mellitus with hyperglycemia; I25.10 Atherosclerotic heart disease of native coronary artery without angina pectoris; E78.00 Pure hypercholesterolemia, unspecified; K21.9 Gastro-esophageal reflux disease without esophagitis; M19.90 Unspecified osteoarthritis, unspecified site; Z92.3 Personal history of irradiation; Z79.82 Long term (current) use of aspirin; Z79.4 Long term (current) use of insulin; Z79.899 Other long term (current) drug therapy; Z87.891 Personal history of nicotine dependence; Z95.5 Presence of coronary angioplasty implant and graft; Z90.2 Acquired absence of lung [part of]; Z82.3 Family history of stroke; Z83.3 Family history of diabetes mellitus; Z82.49 Family history of ischemic heart disease and other diseases of the circulatory system; Z80.9 Family history of malignant neoplasm, unspecified; Z79.891 Long term (current) use of opiate analgesic; S19.9XXA Unspecified injury of neck, initial encounter; W19.XXXA Unspecified fall, initial encounter; Y92.239 Unspecified place in hospital as the place of occurrence of the external cause
CPT/HCPCS: 36415; 70450; 71020; 80048; 80053; 81001; 82962; 83690; 83735; 83930; 83935; 84300; 85025; 87040; 87070; 87077; 87086; 87186; 93005; 93010; 94640; 96361; 96365; 99285; J0692; J1644; J1815; J2405; J3490; J7030; J7614; S0028